=== PATIENT | male | born 1955 | race Caucasian/White ===

== ENCOUNTER → 2017-11-27 | Outpatient (CLI) | payer BC ==
--- NOTE | 2017-11-27 10:01 | CT ---
EXAMINATION TYPE: CT chest wo con DATE OF EXAM: 11/27/2017 COMPARISON: 02/21/2014 HISTORY: 62-year-old male abnormal findings diagnostic imaging TECHNIQUE: Contiguous axial scanning of the chest without IV contrast. Coronal and sagittal reconstru ctions performed. CT DLP: 692 mGycm Automated exposure control for dose reduction was used. FINDINGS: Heart normal size without pericardial effusion. Aortic valvular and coronary vessel calcifications ar e present. Aorta shows bovine configuration with scattered mild prostatic calcifications. Upper descending thora cic aorta is borderline ectatic at 3.0 cm. No thoracic lymphadenopathy. There is some strandy atelectasis at the right base and basilar right middle lobe. Some mild subpleur al reticulations within the mid lung suggests sequela of prior inflammation with some interstitial sc arring. The 4 mm peripheral right midlung pulmonary nodule axial image 31 is unchanged from 2014. Couple inocencia cent 4 mm pulmonary nodules peripheral left lower lobe axial image 27 and 30 are unchanged from 2014. No consolidation or pleural effusion. Visualized upper abdomen shows partial visualization of the previous splenule mentioned on prior CT a bdomen reports. 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 Minimal degenerative disc dise ase lower thoracic spine. No osseous destructive process. IMPRESSION: 1. SOME MINIMAL INTERSTITIAL SCARRING/FIBROSIS IN THE SUBPLEURAL REGIONS OF THE MID LUNGS IS NONSPECI FIC AND SUGGESTS SEQUELA OF PRIOR INFLAMMATION. NO ACUTE PULMONARY PROCESS. 2. A FEW 4 MM PULMONARY NODULES ARE UNCHANGED FROM 2014 COMPATIBLE WITH A BENIGN ETIOLOGY.
== END | disposition home or self-care (01) ==
LOC: RADCTMAIN 08:20
PROVIDERS: ATTEND Family Medicine
DX: R91.8 Other nonspecific abnormal finding of lung field (principal); Z91.041 Radiographic dye allergy status
CPT/HCPCS: 71250

== ENCOUNTER 2018-09-21 15:53 | Observation (INO) | payer BC ==
[2018-09-21 16:43] LABS: Basophils # (A) 0.1 k/uL (0-0.2); Basophils % (A) 1 %; Eosinophils # (A) 0.2 k/uL (0-0.7); Eosinophils % (A) 2 %; HCT 42.9 % (39.0-53.0); HGB 14.3 gm/dL (13.0-17.5); Lymphocytes # (A) 3.8 k/uL (1.0-4.8); Lymphocytes % (A) 29 %; MCH 31.4 pg (25.0-35.0); MCHC 33.4 g/dL (31.0-37.0); MCV 94.1 fL (80.0-100.0); Mean Platelet Volume 7.5; Monocytes % (A) 8 %; Neutrophils # (A) 7.5 k/uL (1.3-7.7); Neutrophils % (A) 58 %; Platelet Count 342 k/uL (150-450); RBC 4.56 m/uL (4.30-5.90); RDW 13.5 % (11.5-15.5)
[2018-09-21 16:50] LABS: Albumin 4.1 g/dL (3.5-5.0); Calcium 9.7 mg/dL (8.4-10.2); Magnesium 1.8 mg/dL (1.6-2.3); Potassium 4.1 mmol/L (3.5-5.1); Total Bilirubin 0.5 mg/dL (0.2-1.3); Total Protein 7.2 g/dL (6.3-8.2)
[2018-09-21 16:54] LABS: Creatine Kinase 27 U/L (55-170)
[2018-09-21 17:01] LABS: Partial Thromboplastin Time 23.3 sec (22.0-30.0); Prothrombin Time 10.6 sec (9.0-12.0)
--- NOTE | 2018-09-21 17:05 | XR ---
EXAMINATION TYPE: XR chest 2V DATE OF EXAM: 09/21/2018 COMPARISON: NONE HISTORY: Short of breath TECHNIQUE: Frontal and lateral views of the chest are obtained. FINDINGS: Heart and mediastinum are normal. Lungs are clear. Costophrenic angles are clear. There ar e no hilar masses. Bony thorax is intact. There are chest leads. IMPRESSION: Normal chest.
[2018-09-21 17:07] LABS: Creatine Kinase MB 0.7 ng/mL (0.0-2.4); Troponin I <0.012 ng/mL (0.000-0.034)
[2018-09-21 17:31] LABS: D-Dimer 0.66 mg/L FEU (<0.60)
--- NOTE | 2018-09-21 18:09 | CT ---
EXAMINATION TYPE: CT angio chest DATE OF EXAM: 09/21/2018 5:54 PM COMPARISON: 02/21/2014 HISTORY: Chest pain CT DLP: mGycm Automated exposure control for dose reduction was used. CONTRAST: CTA scan of the thorax is performed , patient injected with mL of , pulmonary embolism protocol. . The contrast was Isovue 100 mL. There are 3-D post processed images. FINDINGS: Heart size is normal. There is no pericardial effusion. There are no hilar masses. There is no medias tinal adenopathy. Thoracic aorta shows no aneurysm or dissection. There is normal contrast opacification of the pulmonary arteries. There are no filling defects. There is no pleural effusion. There is mild subpleural linear density at the lung bases. There is no evidence of a pulmonary mass. There are bilateral renal cortical cysts. There is pancreatic atrophy. The bony thorax is intact. There is no compression fracture. IMPRESSION: NO EVIDENCE OF PULMONARY EMBOLISM. MINIMAL FIBROTIC CHANGES AND SUBSEGMENTAL ATELECTASIS AT THE LUNG BASES. NO ADVERSE CHANGE COMPARED TO OLD EXAM.
--- NOTE | 2018-09-21 18:24 | ED ---
Chest Pain HPI - General Chief Complaint: Chest Pain Stated Complaint: Chest pain Time Seen by Provider: 09/21/18 16:09 Source: patient Mode of arrival: wheelchair Limitations: no limitations - History of Present Illness Initial Comments: 63-year-old male past medical history of hyperlipidemia, previous pulmonary embolism in 2007 on no current anticoagulation therapy presenting today for chief complaint of chest pain and shortness of breath. Patient states that he has had worsening shortness of breath over the course of this year, increasing more so this month. In addition patient states the past 2-3 weeks he had left- sided chest pain, he noticed this begins after exertion. Patient states his last episode was while in the waiting room at the emergency department. Lasting about 2-3 minutes. Patient states with a few minutes or rest during these episodes it seems to subside. Patient denies any dizziness, syncope presyncope, nausea, vomiting, epigastric pain, jaw pain. Patient states the pain in the chest does radiate towards the left shoulder. Patient states he has noticed some bilateral lower extremity edema, denies any unilateral swelling , cough, hemoptysis, history of cancer, recent travel. Patient states she has not been on any anticoagulation therapy since 3 years status post diagnosis of pulmonary embolism. Remainder of review of systems is negative, patient denies any recent fever, chills, back pain, abdominal pain, nausea or vomiting, numbness or tingling, dysuria or hematuria, constipation or diarrhea, headaches or visual changes, or any other complaints. On arrival patient's vital signs within acceptable limits. Patient well-appearing with no acute signs of distress. (-) Levign sign. - Related Data Home Medications Medication Instructions Recorded Confirmed Multivitamin/Iron/Folic Acid 1 tab PO DAILY 07/07/16 09/21/18 [Centrum Complete Multivit Tab] Naproxen Sodium [Aleve] 220 mg PO BID PRN 07/07/16 09/21/18 Acetaminophen/Diphenhydramine 3 tab PO HS 09/21/18 09/21/18 [Tylenol PM 500-25mg] Allergies Allergy/AdvReac Type Severity Reaction Status Date / Time etodolac [From [facility]] Allergy Rash/Hives Verified 09/21/18 16:28 Review of Systems ROS Statement: Those systems with pertinent positive or pertinent negative responses have been documented in the HPI. ROS Other: All systems not noted in ROS Statement are negative. EKG Findings - EKG Comments: EKG Findings:: A 12-lead EKG was performed and shows the following: Rate is 82bpm, and rhythm is normal sinus. There are normal QRS complexes, Q wave noted , and normal R-wave progression. ST segments have no elevation or depression, and AR segments appear normal. Some T wave inversion noted in lead III, II. Past Medical History Past Medical History: Pulmonary Embolus (PE) Additional Past Medical History / Comment(s): dysphagia History of Any Multi-Drug Resistant Organisms: None Reported Past Surgical History: Bowel Resection, Hernia Repair, Orthopedic Surgery Additional Past Surgical History / Comment(s): Back surgery, spleenectomy. Past Anesthesia/Blood Transfusion Reactions: No Reported Reaction Past Psychological History: No Psychological Hx Reported Smoking Status: Former smoker Past Alcohol Use History: None Reported Past Drug Use History: None Reported - Past Family History Mother Family Medical History: Cancer General Exam - General Exam Comments Initial Comments: General: The patient is awake and alert, in no distress, and does not appear acutely ill. Eye: Pupils are equal, round and reactive to light, extra-ocular movements are intact. No nystagmus. There is normal conjunctiva bilaterally. No signs of icterus. Ears, nose, mouth and throat: There are moist mucous membranes and no oral lesions. Neck: The neck is supple, there is no tenderness or JVD. Cardiovascular: There is a regular rate and rhythm. No murmur, rub or gallop is appreciated. Respiratory: Lungs are clear to auscultation, respirations are non-labored, breath sounds are equal. No wheezes, stridor, rales, or rhonchi. Gastrointestinal: Soft, non-distended, non-tender abdomen without masses or organomegaly noted. . Bowel sounds are unremarkable. Musculoskeletal: Normal ROM, no tenderness. Strength 5/5. Sensation intact. + 2 DP pulses equal bilaterally 2+. Negative Scott. No lower extremity edema. Neurological: A&O x 3. CN II-XII intact, There are no obvious motor or sensory deficits. Coordination appears grossly intact. Speech is normal. Skin: Skin is warm and dry and no rashes or lesions are noted. Psychiatric: Cooperative, appropriate mood & affect, normal judgment. Limitations: no limitations Course Vital Signs 09/21/18 09/21/18 09/21/18 15:54 16:30 17:00 Temperature 97.4 F L Pulse Rate 90 80 84 Respiratory 24 17 16 Rate Blood Pressure 129/78 131/84 131/76 O2 Sat by Pulse 95 98 97 Oximetry Chest Pain MDM - MDM 63-year-old male with complaints of intermittent chest pain that increases with exertion. As well as complaints of increasing shortness of breath. EKG does show some T-wave inversion, nonspp. Initial troponin negative. Patient denies any current symptoms however was symptomatically emergency department, waiting room. Patient current;y 97% on room air. D-dimer elevated, CTA negative for pulmonary embolism. Remainder of laboratory values within acceptable limits. Patient on telemetry. Patient given aspirin. At this time given age, risk factors, family history and patient's symptoms patient will be admitted for serial troponin as well as further monitoring and possible cardiology testing. Cardiology will be on consult. Dr. Conley was contacted by attending provider . Pt is agreeable with plan as well as admission. Pt transferred to observation unit in stable condition appearing well. Disposition Clinical Impression: Chest pain, SOB (shortness of breath) Disposition: ADMITTED IP TO THIS HOSP Condition: Stable Is patient prescribed a controlled substance at d/c from ED?: No Referrals: Vaishali Piña MD [Primary Care Provider] - 1-2 days Time of Disposition: 18:31 Decision to Admit Reason: Admit from EC Decision Date: 09/21/18 Decision Time: 18:31
[2018-09-21] MEDS ORDERED: ASPIRIN 325 MG TAB PO STA (18:27)
[2018-09-21] MEDS ORDERED: NALOXONE 0.4 MG/ML 1 ML VIAL IV PRN (18:41)
[2018-09-21] MEDS: SODIUM CHLORIDE 0.9% 1,000 ML IV SCH (18:54)
[2018-09-21] MEDS ORDERED: INFLUENZA VACCINE (6 MOS+) 60 MCG/0.5 ML SYRINGE IM ONE (23:27)
[2018-09-22 03:47] VITALS: RESP 18
[2018-09-22] MEDS: SODIUM CHLORIDE 0.9% 1,000 ML IV SCH (07:11)
[2018-09-22 08:25] LABS: Basophils # (A) 0.1 k/uL (0-0.2); Basophils % (A) 1 %; Eosinophils # (A) 0.2 k/uL (0-0.7); Eosinophils % (A) 2 %; HCT 41.8 % (39.0-53.0); HGB 13.6 gm/dL (13.0-17.5); Lymphocytes # (A) 3.1 k/uL (1.0-4.8); Lymphocytes % (A) 30 %; MCH 31.1 pg (25.0-35.0); MCHC 32.5 g/dL (31.0-37.0); MCV 95.8 fL (80.0-100.0); Monocytes # (A) 0.8 k/uL (0-1.0); Monocytes % (A) 8 %; Neutrophils # (A) 5.8 k/uL (1.3-7.7); Neutrophils % (A) 55 %; Platelet Count 334 k/uL (150-450); RBC 4.36 m/uL (4.30-5.90); RDW 13.5 % (11.5-15.5); WBC 10.5 k/uL (3.8-10.6)
[2018-09-22 08:29] LABS: ALT 25 U/L (21-72); AST 16 U/L (17-59); Albumin 3.6 g/dL (3.5-5.0); Alkaline Phosphatase 46 U/L (38-126); Anion Gap 7 mmol/L; Blood Urea Nitrogen 21 mg/dL (9-20); Calcium 9.3 mg/dL (8.4-10.2); Carbon Dioxide 25 mmol/L (22-30); Chloride 110 mmol/L (98-107); Glucose 101 mg/dL (74-99); Potassium 4.2 mmol/L (3.5-5.1); Sodium 142 mmol/L (137-145); Total Bilirubin 0.5 mg/dL (0.2-1.3); Total Protein 6.4 g/dL (6.3-8.2)
[2018-09-22] MEDS ORDERED: DOBUTamine DRIP for NUC MED 500 MG in DEXTROSE/WATER 1 250ML.BAG IV ONE (09:00)
[2018-09-22 09:46] LABS: Cholesterol 166 mg/dL (<200); HDL Cholesterol 39 mg/dL (40-60); LDL Cholesterol,Calculated 113 mg/dL (0-99); Triglycerides 70 mg/dL (<150)
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
--- NOTE | 2018-09-22 11:12 | ECHOF ---
Referral Reason:sob, cp MEASUREMENTS -------- HEIGHT: 172.7 cm WEIGHT: 113.4 kg BP: 136/77 RVIDd: 3.6 cm (< 3.3) IVSd: 1.6 cm (0.6 - 1.1) LVIDd: 5.0 cm (3.9 - 5.3) LVPWd: 1.5 cm (0.6 - 1.1) IVSs: 2.1 cm LVIDs: 3.2 cm LVPWs: 2.1 cm LA Diam: 4.5 cm (2.7 - 3.8) LAESV Index (A-L): 35.21 ml/m Ao Diam: 3.7 cm (2.0 - 3.7) AV Cusp: 2.0 cm (1.5 - 2.6) EPSS: 0.4 cm MV E Kutris: 0.82 m/s MV DecT: 265 ms MV A Kurtis: 0.95 m/s MV E/A Ratio: 0.86 AV maxP.78 mmHg AV meanP.92 mmHg AR PHT: 1859 ms RAP: 5.00 mmHg RVSP: 30.11 mmHg MV EF SLOPE: 59.18 mm/s (70 - 150) MV EXCURSION: 1.38 cm (> 18.000) FINDINGS -------- Sinus rhythm. This was a technically adequate study. The left ventricular size is normal. There is moderate concentric left ventricular hypertrophy. O verall left ventricular systolic function is normal with, an EF between 55 - 60 %. The right ventricle is mildly enlarged. LA is moderately dilated 34-39 ml/m2 The right atrium is normal in size. There is moderate aortic valve sclerosis. There is mild aortic regurgitation. There is mild aorti c stenosis present. Peak/mean gradient across the Aortic Valve is 27.78mmHg / 12.92mmHg. Mild mitral annular calcification present. There is trace mitral regurgitation. Mild tricuspid regurgitation present. Right ventricular systolic pressure is normal at < 35 mmHg. Trace/mild (physiologic) pulmonic regurgitation. The aortic root size is normal. Normal inferior vena cava with normal inspiratory collapse consistent with estimated right atrial pre ssure of 5 mmHg. There is no pericardial effusion. CONCLUSIONS -------- 1. Sinus rhythm. 2. This was a technically adequate study. 3. The left ventricular size is normal. 4. There is moderate concentric left ventricular hypertrophy. 5. Overall left ventricular systolic function is normal with, an EF between 55 - 60 %. 6. The right ventricle is mildly enlarged. 7. LA is moderately dilated 34-39 ml/m2 8. The right atrium is normal in size. 9. There is moderate aortic valve sclerosis. 10. There is mild aortic regurgitation. 11. There is mild aortic stenosis present. 12. Peak/mean gradient across the Aortic Valve is 27.78mmHg / 12.92mmHg. 13. Mild mitral annular calcification present. 14. There is trace mitral regurgitation. 15. Mild tricuspid regurgitation present. 16. Right ventricular systolic pressure is normal at < 35 mmHg. 17. Trace/mild (physiologic) pulmonic regurgitation. 18. The aortic root size is normal. 19. Normal inferior vena cava with normal inspiratory collapse consistent with estimated right atrial pressure of 5 mmHg. 20. There is no pericardial effusion. CHASSIS INSPECTOR: NARDA Goldstein
[2018-09-22 15:47] VITALS: BP 120/74; PULSE 71; TEMP 97.6
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
[2018-09-22] MEDS ORDERED: ATORVASTATIN 40 MG TAB PO SCH (21:00)
--- NOTE | 2018-09-23 11:13 | P.DS ---
Providers Date of admission: 09/21/18 18:33 Expected date of discharge: 09/22/18 Attending physician: Gino Conley Consults: 09/21/18 18:41 Consult Physician Routine Consulting Provider: Ru Lazo Consult Reason/Comments: chest pain with SOB, t wave inversion Do you want consulting provider notified?: Yes, Notify in am 09/22/18 12:16 Consult Physician Routine Consulting Provider: Raoul Ravi Consult Reason/Comments: Increased shortness of breath with minimal fibrotic changes on CTA Do you want consulting provider notified?: Yes Primary care physician: Vaishali [facility] B[facility] Hospital Course: Discharge diagnosis 1. Chest pain or shortness of breath. Troponins negative 3. CT of chest completed showing no evidence of pulmonary embolism. Minimal fibrotic changes and subsegmental atelectasis at the lung bases. No adverse change compared to old exam. EKG completed showing normal sinus rhythm. Normal EKG. 2-D echo completed showing an EF between 55 and 60%. Dobutamine stress test completed per cardiology. Patient has been cleared by cardiology for discharge. Per pulmonary services and chest x-ray reviewed no need for antibiotics prednisone her breathing treatments at this time. Patient advised to follow-up with pulmonary services outpatient for evaluation of chronic lung disease 2. History of pulmonary embolism. He reports he has not been on anticoagulation for many years. CTA negative for PE 3. Hyperlipidemia. Continue statin 4. History of sleep apnea. Patient reports he does wear CPAP machine 5. History of osteoarthritis 6. History of cholecystectomy Hospital course This is a 63-year-old male patient of Dr. Piña. Patient presented to the emergency room with complaints of chest pain and intermittent shortness of breath that has been occurring for over a year. Patient reports that recently his shortness of breath has worsened. Patient reports he gets short of breath while walking to bathroom. Patient has past medical history for osteoarthritis , pulmonary embolism in which he is no longer on anticoagulation, sleep apnea, bowel resection, cholecystectomy and hernia repair. Patient does report he was an ex-smoker quitting approximately 5 years ago. Denies any significant cardiac history. Chest x-ray completed showing normal chest. D-dimer slightly elevated at 0.66. CTA chest done showing no evidence of pulmonary embolism. Minimal fibrotic changes and subsegmental atelectasis at the lung bases. No adverse change compared to old exam. 2-D echo and venous stress test has been ordered per cardiology. At this time patient denies chest pain. Patient does report shortness of breath with activity. Patient denies nausea vomiting or diarrhea. Patient denies any urinary burning or frequency. Patient has been cleared for discharge from pulmonary and cardiology services. Stress test and 2-D echo completed per cardiology. Patient will follow up with pulmonary service outpatient for further evaluation. I performed an examination of the patient and discussed their management with the Nurse Practitioner. I have reviewed the Nurse Practitioner's notes and agree with the documented findings and plan of care Patient Condition at Discharge: Stable Plan - Discharge Summary Discharge Rx Participant: Yes New Discharge Prescriptions: New Atorvastatin [Lipitor] 40 mg PO HS #90 tab No Action Naproxen Sodium [Aleve] 220 mg PO BID PRN PRN Reason: Pain Multivitamin/Iron/Folic Acid [Centrum Complete Multivit Tab] 1 tab PO DAILY Acetaminophen/Diphenhydramine [Tylenol PM 500-25mg] 3 tab PO HS Discharge Medication List Multivitamin/Iron/Folic Acid [Centrum Complete Multivit Tab] 1 tab PO DAILY [History] Naproxen Sodium [Aleve] 220 mg PO BID PRN 07/07/16 [History] Acetaminophen/Diphenhydramine [Tylenol PM 500-25mg] 3 tab PO HS 09/21/18 [ History] Atorvastatin [Lipitor] 40 mg PO HS #90 tab 09/22/18 [Rx] Follow up Appointment(s)/Referral(s): Mj Adkins MD [STAFF PHYSICIAN] - 10/29/18 10:45 am (Holter monitor to be picked up in the office 10/08 between 8:30-12pm or 1:30-4pm Appointment with Dr. Adkins 10/29 at 1045. ) Raoul Ravi DO [Doctor of Osteopathic Medicine] - 09/29/18 1:00 pm Vaishali Piña MD [Primary Care Provider] - 1-2 days Discharge Disposition: HOME SELF-CARE
--- NOTE | 2018-09-24 11:00 | ECHOS ---
STRESS ECHOCARDIOGRAM INDICATIONS: Chest pain. MEDICATIONS: Naproxen sodium, multivitamin, acetaminphen. BASELINE HEART RATE: 64 BASELINE BLOOD PRESSURE: 123/74 MAXIMUM HEART RATE: 142 MAXIMUM BLOOD PRESSURE: 148/53 85% MPHR: 133 100% MPHR: 156 MAXIMUM STAGE REACHED: 5 TOTAL EXERCISE TIME: 12:15 CLINICAL INFORMATION: Baseline heart rate 64 beats per minute. Baseline blood pressure 123/74 mmHg. Baseline 12-lead ECG shows normal sinus rhythm with normal cardiac intervals. Patient received dobutamine infusion per protocol. Occasional PVCs initially noted that later became frequent, these were outflow tract PVCs, recurred intermittently through the test and became frequent towards the end of the test, but no nonsustained ventricular tachycardia. There was no ECG segment deviation consistent with ischemia. The baseline 2D echo images showed normal LV size systolic function without segmental wall motion abnormalities. This dobutamine infusion there was a stepwise increment in overall LV contractility without development of any wall motion abnormalities. At recovery, regional global LV systolic function remained normal. IMPRESSION: No ECG or echocardiographic evidence for ischemia: The patient had frequent PVCs during dobutamine infusion, but no nonsustained ventricular tachycardia. MMODL / IJN: [id number] /
== END 2018-09-22 17:35 | disposition home or self-care (01) ==
LOC: EC 15:53 → 1SOBS 18:33
PROVIDERS: ADMIT Internal Medicine; ATTEND Internal Medicine
DX: R07.89 Other chest pain (principal); E78.5 Hyperlipidemia, unspecified; G47.30 Sleep apnea, unspecified; K21.9 Gastro-esophageal reflux disease without esophagitis; I35.8 Other nonrheumatic aortic valve disorders; Z87.891 Personal history of nicotine dependence; Z86.711 Personal history of pulmonary embolism; Z90.49 Acquired absence of other specified parts of digestive tract; Z82.5 Family history of asthma and other chronic lower respiratory diseases; Z88.8 Allergy status to other drugs, medicaments and biological substances
CPT/HCPCS: 99285; 36415; 93005; 93306; 93351; 85379; 83880; 80061; 80053 ×2; 82550; 82553; 83735; 84484 ×2; 85025 ×2; 85610; 85730; 71046; 71275; 90686; G0378 ×2; G0008; J1250; Q9967

== ENCOUNTER → 2018-10-08 | Outpatient (CLI) | payer BC ==
--- NOTE | 2018-10-08 10:08 | CT ---
EXAMINATION TYPE: CT chest wo con DATE OF EXAM: 10/08/2018 COMPARISON: CTA 09/21/2018 HISTORY: Unspecified abnormalities of breathing CT DLP: 238 mGycm, Automated exposure control for dose reduction was used. CONTRAST: None TECHNIQUE: Axial images were obtained at 1 mm thick sections at 10 mm intervals. This will limit po rtions of the examination which may not be visualized within the [id number]. Images were obtained in the prone and supine views. FINDINGS: Portion of the thyroid visualized is normal. No suspicious lung nodules or focal infiltrat es are present. There is some reversible atelectasis and supine views. No enlarged mediastinal or hilar adenopathy is evident. The ascending aorta diameter at the level o f the main pulmonary artery is 3.8 cm. The main pulmonary artery diameter at the bifurcation is 3.0 cm. Moderate coronary artery calcifications present. Limited CT sections are obtained through the upper abdomen. Abdomen is essentially unremarkable. IMPRESSIONS: 1. Normal High Resolution Chest CT.
== END | disposition home or self-care (01) ==
LOC: RADCTMAIN 08:02
PROVIDERS: ATTEND Internal Medicine Critical Care Medicine
DX: R06.09 Other forms of dyspnea (principal)
CPT/HCPCS: 71250

== ENCOUNTER → 2018-12-01 | Outpatient (CLI) | payer BC ==
--- NOTE | 2018-12-01 08:24 | CT ---
EXAMINATION TYPE: CT sinus wo con DATE OF EXAM: 12/01/2018 COMPARISON: NONE HISTORY: Chronic sinusitis per order. Facial pain for [address] DLP: 610 mGycm. Automated Exposure Control for Dose Reduction was Utilized. TECHNIQUE: CT scan of the sinuses is performed without contrast, axial images are obtained, coronal r eformatted images are also reviewed. FINDINGS: The paranasal sinuses including the frontal, ethmoid, sphenoid, and maxillary sinuses bila terally are well-aerated without abnormal opacification or suspicious air-fluid levels. The ostiomea neville complex is patent bilaterally on the coronal images. Visualized portion of mastoid air cells show no abnormal opacification. The globes are intact bilate rally. IMPRESSION: The sinuses are clear and the ostiomeatal complex is patent bilaterally.
== END | disposition home or self-care (01) ==
LOC: RADCTMAIN 07:24
PROVIDERS: ATTEND Otolaryngology
DX: J32.9 Chronic sinusitis, unspecified (principal)
CPT/HCPCS: 70486

== ENCOUNTER → 2018-12-15 | Outpatient (CLI) | payer BC | LOC: LABWHC1 17:22 | PROVIDERS: ATTEND Internal Medicine Critical Care Medicine | DX: J45.909 Unspecified asthma, uncomplicated (principal) | CPT/HCPCS: 36415; 82785; 85008 ==

== ENCOUNTER → 2019-04-26 | Outpatient (CLI) | payer BC ==
--- NOTE | 2019-04-27 16:13 | CT ---
EXAMINATION TYPE: CT foot RT wo con DATE OF EXAM: 04/26/2019 COMPARISON: None HISTORY: Dislocation of tarsometatarsal joint RT foot CT DLP: 339 mGycm CONTRAST: 0 mL of Isovue 300 Technique: Axial images 3 mm thick sections. Reconstructed images in the coronal and sagittal planes. FINDINGS: There are advanced degenerative joint changes at the tarsal metatarsal junction especially through the cuneiforms and metatarsals. Subchondral cyst formation is evident. Metatarsal tarsal Alig nment appears appropriate. There may be some deformity of the cuneiforms with angulation of the middl e cuneiform. Plain film correlation is recommended. Note is made of a plantar calcaneal heel spur. Small bone island is in the medial malleolus. Ankle mo rtise appears intact. Tibiotalar junction appears intact. No displaced fractures are identified. Thre e-D reconstructed images are reviewed on the computer and were performed separately by the technologi st. IMPRESSIONS: 1. No acute dislocations identified. 2. There may be some congenital change of the middle cuneiform versus erosion. Recommend plain film c orrelation of the tarsal metatarsal function. 3. There are advanced degenerative joint changes at the tarsometatarsal junction greater along the me dial aspect.
== END | disposition home or self-care (01) ==
LOC: RADCTMAIN 16:47
DX: M19.071 Primary osteoarthritis, right ankle and foot (principal)

== ENCOUNTER 2019-10-29 11:48 | Emergency (ER) | payer BC ==
[2019-10-29] MEDS ORDERED: SODIUM CHLORIDE 0.9% 1,000 ML IV STA (12:17)
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
[2019-10-29 12:38] LABS: Basophils # (A) 0.1 k/uL (0-0.2); Basophils % (A) 1 %; Eosinophils # (A) 0.2 k/uL (0-0.7); Eosinophils % (A) 2 %; HCT 40.4 % (39.0-53.0); HGB 13.3 gm/dL (13.0-17.5); Lymphocytes # (A) 3.3 k/uL (1.0-4.8); Lymphocytes % (A) 28 %; MCH 30.8 pg (25.0-35.0); MCHC 33.1 g/dL (31.0-37.0); MCV 93.3 fL (80.0-100.0); Mean Platelet Volume 8.2; Monocytes % (A) 9 %; Neutrophils # (A) 6.8 k/uL (1.3-7.7); Neutrophils % (A) 58 %; Platelet Count 302 k/uL (150-450); RBC 4.33 m/uL (4.30-5.90); RDW 13.3 % (11.5-15.5); WBC 11.8 k/uL (3.8-10.6)
[2019-10-29 12:48] LABS: Partial Thromboplastin Time 24.9 sec (22.0-30.0); Prothrombin Time 10.7 sec (9.0-12.0)
[2019-10-29 12:49] LABS: ALT 23 U/L (4-49); AST 27 U/L (17-59); African American GFR (CKD) >90 (>60 ml/min/1.73 sqM); Albumin 4.4 g/dL (3.5-5.0); Alkaline Phosphatase 59 U/L (38-126); Anion Gap 8 mmol/L; Blood Urea Nitrogen 17 mg/dL (9-20); Calcium 9.7 mg/dL (8.4-10.2); Carbon Dioxide 24 mmol/L (22-30); Chloride 108 mmol/L (98-107); Creatine Kinase 111 U/L (55-170); Glucose 109 mg/dL (74-99); Non-African American GFR(CKD) >90 (>60 ml/min/1.73 sqM); Potassium 3.8 mmol/L (3.5-5.1); Sodium 140 mmol/L (137-145); Total Bilirubin 0.5 mg/dL (0.2-1.3); Total Protein 7.5 g/dL (6.3-8.2)
--- NOTE | 2019-10-29 13:35 | CT ---
EXAMINATION TYPE: CT angio chest DATE OF EXAM: 10/29/2019 COMPARISON: Chest CT October 08, 2018 and CTA chest September 21, 2018 HISTORY: SOB, chest pain CT DLP: 734.2 mGycm. Automated Exposure Control for Dose Reduction was Utilized. CONTRAST: CTA scan of the thorax is performed with IV Contrast, patient injected with 89 mL of Isovue 370, pulm onary embolism protocol. MIP Images are created on CT scanner and reviewed. FINDINGS: LUNGS: Elevation and eventration anterior aspect right hemidiaphragm is redemonstrated. Dependent dayanara undglass opacity along the left major fissure and bilateral lower lungs is present with some more hillary tral groundglass opacity left lung. Patchy bibasilar linear atelectasis and/or scarring. Some respira tory motion artifact degradation. No pleural effusion or pneumothorax seen bilaterally MEDIASTINUM: There is suboptimal bolus with heterogeneity and less than optimal contrast opacificatio n but no convincing CT evidence for acute pulmonary embolism. There are no greater than 1 cm hilar o r mediastinal lymph nodes. No cardiomegaly or pericardial effusion is seen. Coronary artery calcifi cation is redemonstrated which is noted marker for underlying coronary artery disease. Prominent cent ral pulmonary arteries, CT findings suggesting underlying pulmonary artery hypertension. OTHER: Small nonobstructing bilateral renal calculi. Simple appearing 2.0 cm thin-walled cyst mid to lower pole of the right kidney. Fat replaced atrophy of the pancreas. [id number] multilevel spu rring in the thoracic spine. IMPRESSION: Suboptimal study without acute pulmonary embolism. Mild diffuse alveolar edema. No suspic ious focal infiltrate or consolidation.
[2019-10-29] MEDS ORDERED: CYCLOBENZAPRINE 10MG STARTER 3 TAB BTL PO STA (14:32)
[2019-10-29 14:38] VITALS: BP 148/82; PULSE 59; RESP 60; TEMP 98.6
== END 2019-10-29 14:48 | disposition home or self-care (01) ==
LOC: EC 11:48
DX: M54.6 Pain in thoracic spine (principal); R06.02 Shortness of breath; R05 Cough; M19.90 Unspecified osteoarthritis, unspecified site; Z79.899 Other long term (current) drug therapy; Z88.6 Allergy status to analgesic agent; Z86.711 Personal history of pulmonary embolism; Z87.891 Personal history of nicotine dependence; Z90.49 Acquired absence of other specified parts of digestive tract; Z98.1 Arthrodesis status
CPT/HCPCS: 36415; 93005; 80053; 82550; 84484; 85025; 85610; 85730; 71275; 99285; Q9967

== ENCOUNTER → 2021-12-11 | Outpatient (CLI) | payer BC ==
--- NOTE | 2021-12-11 14:21 | CT ---
EXAMINATION TYPE: CT abdomen pelvis wo con DATE OF EXAM: 12/11/2021 COMPARISON: CT dated 01/12/2015 HISTORY: INCISIONAL HERNIA WITHOUT OBSTRUCTION OR HEATHER CT DLP: 1095 mGycm Automated exposure control for dose reduction was used. TECHNIQUE: Helical acquisition of images was performed from the lung bases through the pelvis. FINDINGS: LUNG BASES: No significant abnormality is appreciated. LIVER/GB: The hepatic dome isn't completely included in the scan. Previous cholecystectomy. No defini te hepatic focal lesion identified. PANCREAS: Severe fatty infiltration of the pancreas mainly the pancreatic head. SPLEEN: Very small spleen versus splenules. ADRENALS: No significant abnormality is seen. KIDNEYS: Tiny bilateral nonobstructing renal calculi measuring up to 4 mm. Scattered bilateral renal hypodensities likely representing renal cysts, suboptimally assessed by this CT scan. No hydroureter or hydronephrosis. FREE AIR: No free air is visualized RETROPERITONEAL ADENOPATHY: None visualized REPRODUCTIVE ORGANS: No significant abnormality is seen URINARY BLADDER: Nondistended. PELVIC ADENOPATHY: No pathologically enlarged pelvic lymph nodes. OSSEOUS STRUCTURES: Stable deformity/irregularity at the posterior aspect of the right iliac bone. C hronic nonhealed fracture of the posterior aspect of the left ninth rib, stable. Degenerative changes of the lower lumbar spine. BOWEL: Unremarkable nondistended stomach, duodenum and small bowel. Uncomplicated colonic diverticul osis most evident involving the sigmoid colon and descending colon. Fatty infiltration of the right h emicolon colonic wall which could be related to chronic colitis. Normal appendix. OTHER: Scattered arterial atherosclerotic calcifications. No sizable ascites. Left inguinal density l ikely related to previous inguinal hernia repair. Multiple anterior abdominal wall paramidline fat-co ntaining hernias. IMPRESSION: Multiple anterior abdominal wall paramidline fat-containing hernias. Bilateral nonobstructing renal c alculi. Otherwise no acute abnormality seen in the abdomen or the pelvis. Incidental findings as desc ribed above.
== END | disposition home or self-care (01) ==
LOC: RADCTMAIN 13:40
PROVIDERS: ATTEND Surgery Plastic and Reconstructive Surgery
DX: N20.0 Calculus of kidney (principal); K43.9 Ventral hernia without obstruction or gangrene
CPT/HCPCS: 74176

== ENCOUNTER 2022-01-14 06:49 | Day surgery (SDC) | payer BC ==
[2022-01-13 13:40] VITALS: BMI 34.9
[2022-01-14] MEDS ORDERED: SODIUM CHLORIDE 0.9% 500 ML 500 ML IV ONE (07:07)
[2022-01-14 07:10] VITALS: TEMP 98.2
[2022-01-14] MEDS ORDERED: fentaNYL (PF) 50 MCG/ML 2 ML AMP ONE ×2 (07:46)
[2022-01-14] MEDS: BENZOCAINE SPRAY 1 CAN MUCOUS MEM ONE ×2 (07:56→08:07)
[2022-01-14] MEDS ORDERED: MIDAZOLAM 2 MG/2 ML VIAL IV ONE (08:07)
[2022-01-14] MEDS ORDERED: fentaNYL (PF) 50 MCG/ML 2 ML AMP IV ONE (08:07)
[2022-01-14 08:16] VITALS: RESP 45
--- NOTE | 2022-01-14 09:42 | ECHOT ---
TRANSESOPHAGEAL ECHOCARDIOGRAM INDICATION: Aortic stenosis. PROCEDURE NOTE: After obtaining informed consent, transesophageal echocardiogram was performed in left lateral position using an Omniplane probe. Local and IV sedation were obtained using Xylocaine spray, 1 mg of Versed and 25 mcg of fentanyl. Patient tolerated the procedure well without any obvious immediate complications. FINDINGS: 1. Aortic valve is a bicuspid valve. There is mild to moderate aortic regurgitation noted by planimetry. The valve area is 2.1 cm suggestive of mild aortic stenosis. 2. Aortic root measures within normal limits. 3. Left atrium appears mildly enlarged. 4. Mitral valve is anatomically normal. There is mild mitral regurgitation noted. 5. Tricuspid valve appears normal with trace tricuspid regurgitation. 6. Interatrial septum: There is no evidence of pmmwv-ut-szyh shunt by agitated saline contrast study or ejmp-mo-slpih shunt by color-flow Doppler. 7. Left ventricle has normal size and systolic function. 8. Right atrium and right ventricle seen within normal limits. CONCLUSIONS: Bicuspid aortic valve with mild aortic stenosis and mild to moderate aortic regurgitation. PLAN: The patient will be followed with annual 2D echos; does not require specific treatment for the aortic stenosis at this time. MMODL / IJN: [id number] /
[2022-01-14 19:57] VITALS: BP 130/68; PULSE 55
== END 2022-01-14 09:46 | disposition home or self-care (01) ==
LOC: CATHCVL 06:49
PROVIDERS: ATTEND Internal Medicine Cardiovascular Disease
DX: I35.0 Nonrheumatic aortic (valve) stenosis (principal)
CPT/HCPCS: 93312; 93320; 93325; J2250; J3010

== ENCOUNTER → 2022-01-24 | Outpatient (CLI) | payer BC ==
[2022-01-24 18:29] LABS: Basophils # (A) 0.12 X 10*3/uL (0.00-0.10); Basophils % (A) 1.1 %; Eosinophils # (A) 0.12 X 10*3/uL (0.04-0.35); Eosinophils % (A) 1.1 %; HGB 13.2 g/dL (13.0-17.0); Immature Grans, Automated 0.5 %; Lymphocytes # (A) 2.23 X 10*3/uL (0.90-5.00); Lymphocytes % (A) 20.9 %; MCH 30.8 pg (27.0-32.0); MCV 93.2 fL (80.0-97.0); Mean Platelet Volume 11.7 fL (9.5-12.2); Monocytes # (A) 0.93 X 10*3/uL (0.20-1.00); Monocytes % (A) 8.7 %; NRBC Per 100 WBC 0 /100 WBCS (0.0-0.0); Neutrophils % (A) 67.7 %; Platelet Count 282 X 10*3/uL (140-440); RBC 4.29 X 10*6/uL (4.40-5.60); RDW 14.1 % (11.5-14.5); WBC 10.65 X 10*3/uL (4.50-10.00)
== END | disposition home or self-care (01) ==
LOC: LABPAT 12:34
PROVIDERS: ATTEND Anesthesiology
DX: Z01.812 Encounter for preprocedural laboratory examination (principal)
CPT/HCPCS: 85025

== ENCOUNTER 2022-01-27 10:21 | Day surgery (SDC) | payer BC ==
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
[~2022-01-27 10:21] MED LIST: ACETAMINOPHEN TAB 500 MG TAB PO PRN; DEXAMETHASONE SOD PHOSPHATE 4 MG/ML 1 ML VIAL IV ONE; GABAPENTIN 300 MG CAP PO PRN; HEPARIN SODIUM,PORCINE/PF 5,000 UNIT/0.5 ML SYRINGE SQ PRN; HYDROmorphone 0.5 MG/0.5 ML SYRINGE IVP PRN; LACTATED RINGERS 1,000 ML IV SCH; LIDOCAINE 1% (10MG/ML) FOR IV START INTRADERMA PRN; METOCLOPRAMIDE 5 MG/ML 2 ML VIAL IVP PRN; ONDANSETRON 4 MG/2 ML VIAL IVP ONE; TAMSULOSIN 0.4 MG CAP.ER.24H PO PRN
[2022-01-27 10:42] VITALS: TEMP 97.8
[2022-01-27 10:54] LABS: Glucose,Whole Blood 95 mg/dL (75-99)
[2022-01-27] MEDS ORDERED: LACTATED RINGERS 1,000 ML IV ONE ×2 (10:57→14:39)
[2022-01-27 11:05] LABS: Basophils # (A) 0.1 k/uL (0-0.2); Basophils % (A) 1 %; Eosinophils # (A) 0.2 k/uL (0-0.7); Eosinophils % (A) 2 %; HCT 41.3 % (39.0-53.0); Lymphocytes % (A) 21 %; MCH 32.4 pg (25.0-35.0); MCHC 33.9 g/dL (31.0-37.0); MCV 95.4 fL (80.0-100.0); Mean Platelet Volume 8.7; Monocytes # (A) 0.5 k/uL (0-1.0); Monocytes % (A) 5 %; Neutrophils # (A) 6.4 k/uL (1.3-7.7); Neutrophils % (A) 68 %; Platelet Count 302 k/uL (150-450); RBC 4.33 m/uL (4.30-5.90); RDW 13.5 % (11.5-15.5); WBC 9.3 k/uL (3.8-10.6)
[2022-01-27] MEDS: MIDAZOLAM 2 MG/2 ML VIAL IV PRN ×2 (11:32→11:35)
[2022-01-27] MEDS ORDERED: fentaNYL (PF) 50 MCG/ML 2 ML AMP IVP ONE ×2 (11:33→11:36)
--- NOTE | 2022-01-27 11:45 | P.ANPRN ---
Procedure Note - Anesthesia - Nerve Block Performed Bilateral Erector Spinae Time Out Performed: Yes (11:30) Date of Procedure: 01/27/22 Procedure Start Time: : Procedure Stop Time: : Location of Patient: PreOp Indication: Acute Post-Operative Pain, Requested by Surgeon (Dr Esquivel) Sedation Type: Sedate with meaningful contact maintained Preparation: Sterile Prep Position: Prone Catheter: None Needle Types: Pajunk Needle Gauge: 21 Ultrasound used to visualize needle placement: Yes Ultrasound used to observe medication spread: Yes Injectate: 0.5% Ropivacaine (see comment for volume) (15cc +10cc PF Normal saline each side) Blood Aspirated: No Pain Paresthesia on Injection Noted: No Resistance on Injection: Normal Image Stored and Saved: Yes Events: Uneventful and Well Tolerated
[2022-01-27 11:49] LABS: ALT 20 U/L (4-49); AST 20 U/L (17-59); African American GFR (CKD) >90 (>60 ml/min/1.73 sqM); Albumin 3.7 g/dL (3.5-5.0); Alkaline Phosphatase 53 U/L (38-126); Anion Gap 7 mmol/L; Blood Urea Nitrogen 15 mg/dL (9-20); Calcium 8.9 mg/dL (8.4-10.2); Carbon Dioxide 23 mmol/L (22-30); Chloride 111 mmol/L (98-107); Glucose 97 mg/dL (74-99); Non-African American GFR(CKD) >90 (>60 ml/min/1.73 sqM); Potassium 4.3 mmol/L (3.5-5.1); Sodium 141 mmol/L (137-145); Total Bilirubin 0.6 mg/dL (0.2-1.3); Total Protein 6.5 g/dL (6.3-8.2)
[2022-01-27] MEDS ORDERED: SODIUM CHLORIDE 0.9% (PF) 10 ML VIAL ONE (13:15)
[2022-01-27] MEDS ORDERED: LIDOCAINE 2% INJ 20 MG/ML (2 ML VIAL) ONE (13:15)
[2022-01-27] MEDS ORDERED: HYDROmorphone (PF) 1 MG/ML ONE (13:15)
[2022-01-27] MEDS ORDERED: NEOSTIGMINE 1 MG/ML 10 ML VIAL ONE (13:15)
[2022-01-27] MEDS ORDERED: MIDAZOLAM 2 MG/2 ML VIAL ONE (13:15)
[2022-01-27] MEDS ORDERED: PROPOFOL 10 MG/ML 20 ML VIAL IV ONE (13:15)
[2022-01-27] MEDS ORDERED: fentaNYL (PF) 50 MCG/ML 2 ML AMP ONE (13:15)
[2022-01-27] MEDS ORDERED: ROCURONIUM 10 MG/ML (5 ML VIAL) IV ONE (13:15)
[2022-01-27] MEDS ORDERED: ROPIVACAINE 5 MG/ML 30 ML VIAL ONE (13:15)
[2022-01-27] MEDS ORDERED: SUCCINYLCHOLINE CHLORIDE 100 MG/5 ML SYR IV ONE (13:15)
[2022-01-27] MEDS ORDERED: GLYCOPYRROLATE 0.2 MG/ML 2 ML VIAL ONE (13:15)
[2022-01-27] MEDS ORDERED: LIDOCAINE 0.5%-EPI 1:200,000 50 ML VIAL SQ ONE (13:47)
[2022-01-27] MEDS ORDERED: oxyCODONE-APAP 7.5-325MG 1 EACH TAB PO PRN (16:28)
[2022-01-27] MEDS ORDERED: TAMSULOSIN 0.4 MG CAP.ER.24H PO PRN (16:28)
[2022-01-27] MEDS ORDERED: HYDROmorphone 0.5 MG/0.5 ML SYRINGE IVP ONE ×4 (16:33→16:45)
[2022-01-27] MEDS ORDERED: KETOROLAC 15 MG/ML 1 ML VIAL IVP ONE (17:09)
[2022-01-27 17:40] VITALS: BP 145/77; PULSE 68; RESP 18
--- NOTE | 2022-01-28 22:37 | P.OP ---
Date of Procedure: 01/27/22 Description of Procedure: SURGEON: KAMILAH GOODSON MD PREOPERATIVE DIAGNOSES: 1. Recurrent incarcerated incisional hernia 2. History of splenectomy 3. Obesity due to excess calories, BMI 34.0 4. History of asthma 5. Hypertensive heart disease 6. Obstructive sleep apnea 7. History of pulmonary embolus 8. History of angina 9. History of trauma laparotomy status post splenectomy POSTOPERATIVE DIAGNOSES: 1. Recurrent incarcerated incisional hernia 7 2. History of splenectomy 3. Obesity due to excess calories, BMI 34.0 4. History of asthma 5. Hypertensive heart disease 6. Obstructive sleep apnea 7. History of pulmonary embolus 8. History of angina 9. History of trauma laparotomy status post splenectomy 10. Severe abdominal peritoneal adhesions 11. Foreign body OPERATION: 1. Robotic-assisted da Ozzie Xi laparoscopic laparoscopic lysis of adhesions over 1 hour 2. Robotic-assisted da Ozzie Xi laparoscopic repair of multiple recurrent incarcerated incisional with mesh, ventralight ST circular mesh 15.2 cm 3. Removal of foreign body, mesh Anesthesia: GETA, regional, local Estimated Blood Loss (ml): 5 Pathology: 1. Incarcerated incisional hernia defect 2. Foreign body COMPLICATIONS: None. Operative Findings: 1. Multiple incarcerated incisional hernias along the midline lower abdomen and epigastrium 7, 15 x 3 cm defect, combined 2. Prior mesh explanted due to recurrent 3. Severe epigastric left upper quadrant adhesions from prior splenectomy 4. Mesh placed as underlay INDICATIONS: The patient is a 66-year-old male who presents with a personal history of multiple abdominal wall hernias. Surgical intervention with laparoscopic versus robotic and open techniques were reviewed. Placement of mesh was also reviewed. Benefits and risks were thoroughly described. Informed consent was obtained. DESCRIPTION OF PROCEDURE: The patient was brought into the operating room and laid in supine position. After general induction, the abdomen had been prepped and draped in standard sterile fashion. Ioban draping was also placed. Prior to incision, a timeout protocol was confirmed with surgical team regarding the patient's name including procedures to be performed. The robot was primed prior to the procedure. A field block using local anesthetic was placed along hernia site including the proposed port sites. Initial incision was made with an #11 blade along the right upper quadrant. A 0 degree 5 mm laparoscopic trocar entry was performed and insufflated. Three 8 mm ports were placed along the right lateral abdominal wall under direct localization after exchanging the 5-mm for an 8 mm port. Placements of the ports were 15 cm from the target anatomy and 10 cm apart. An accessory 12 mm port was placed at the right upper quadrant for exchange of mesh including sutures. The PROTEIN LOUNGEi Xi robot was previously primed, prepped and draped then docked from the left side of the patient onto the right side of the patient. I then sat at the robot [employer] console where working arms of the robot including Bovie cautery connected to robotic scissors, needle hazmat cdl driver, and graspers placed by the carpenter assistant. Initia attention was brought to severe adhesions of the epigastrium to the left upper quadrant and addressed using vessel sealer for over one hour extensive lysis of adhesions. Prior mesh was identified and extracted to reveal all prior hernias due to recurrence. Incarcerated omental contents were found along multiple fascial defects involving the falciform ligament, epigastrium, upper midline and lower abdomen defect. The defects were reduced with preperitoneal fat including the falciform ligament at the upper midline defect. Multiple fascial defects of 3 and 2 cm in size 7 were identified. Combined defect was 15 cm x 3 cm. The incarcerated contents were reduced as the peritoneal fat was cleaned from the abdominal wall. Next, hemostasis was checked with cautery. The hernia defects were oversewn using #1 nonabsorbable V-lock suture for each defect separately with fascial imbrication x 2. Next, ventralight ST mesh 15.2 cm was divided in half and both pieces were placed with the rough side towards the abdominal wall as to cover all defects including the epigastric and midline defects. 2-0 VLOC 9 inch sutures were used to fixate the mesh. A final endoscopic imaging was obtained. All instruments and pneumoperitoneum were evacuated from the abdominal cavity. The da Ozzie Xi robot was undocked from the patient. I re-scrubbed into the case for closure of incisions. The fascia of the 12-mm port was probed and closed using 0-Vicryl and Alfa Hawk. The incisions were reapproximated using 4-0 Monocryl in an interrupted subcuticular fashion. Liquid glue was applied to the skin after cleansing the skin with normal saline and dilute hydrogen peroxide. An abdominal binder was placed. At the end of the procedure, needle, sponge, and instrument count had been verified correct by tap and die maker technician. The patient was taken to the postanesthesia care unit in stable condition. Intraoperative findings were described to the patient's family who were pleased with the level of care. Plan - Discharge Summary Discharge Rx Participant: Yes New Discharge Prescriptions: New Tamsulosin [Flomax] 0.4 mg PO DAILY #5 cap Acetaminophen Tab [Tylenol Tab] 1,000 mg PO Q6HR PRN #30 tablet PRN Reason: Pain Simethicone [Gas-X] 125 mg PO AC-TID PRN #20 capsule PRN Reason: Pain Naproxen [Naprosyn] 500 mg PO Q12HR PRN #30 tab PRN Reason: Pain Continue Montelukast [Singulair] 10 mg PO DAILY PRN PRN Reason: asthma symptoms Discontinued Naproxen Sodium [Aleve] 220 mg PO BID PRN PRN Reason: Pain Multivitamin/Iron/Folic Acid [Centrum Complete Multivit Tab] 1 tab PO DAILY Discharge Medication List Montelukast [Singulair] 10 mg PO DAILY PRN 01/14/22 [History] Acetaminophen Tab [Tylenol Tab] 1,000 mg PO Q6HR PRN #30 tablet 01/27/22 [Rx] Naproxen [Naprosyn] 500 mg PO Q12HR PRN #30 tab 01/27/22 [Rx] Simethicone [Gas-X] 125 mg PO AC-TID PRN #20 capsule 01/27/22 [Rx] Tamsulosin [Flomax] 0.4 mg PO DAILY #5 cap 01/27/22 [Rx] Follow up Appointment(s)/Referral(s): Kamilah Goodson MD [STAFF PHYSICIAN] - 02/04/22 (Telehealth) Patient Instructions/Handouts: *[facility] - Managing Your Pain After Surgery Without Opioids, *[facility] - (Anesthesia) Discharge Instructions Outpatient Surgery, Laparoscopic Herniorrhaphy (IP), Abdominal Binder (DC), Ventral Hernia Repair (GEN) Activity/Diet/Wound Care/Special Instructions: Using antibacterial soap. No lifting over 4 pounds 4 weeks, February 26 Use ice along incisions for today to prevent swelling. May shower. No bathtub soaks for 2 weeks, February 10 Wear abdominal binder daily for comfort except for showering. Use ice along incisions for today to prevent swelling. Discharge Disposition: HOME SELF-CARE
== END 2022-01-27 19:00 | disposition home or self-care (01) ==
LOC: OR 10:21
PROVIDERS: ATTEND Surgery Plastic and Reconstructive Surgery
DX: K43.0 Incisional hernia with obstruction, without gangrene (principal); K66.0 Peritoneal adhesions (postprocedural) (postinfection); Z96.89 Presence of other specified functional implants; J45.909 Unspecified asthma, uncomplicated; I11.9 Hypertensive heart disease without heart failure; E66.09 Other obesity due to excess calories; Z68.34 Body mass index [BMI] 34.0-34.9, adult; I35.0 Nonrheumatic aortic (valve) stenosis; M19.90 Unspecified osteoarthritis, unspecified site; G47.33 Obstructive sleep apnea (adult) (pediatric); Z86.711 Personal history of pulmonary embolism; R01.1 Cardiac murmur, unspecified; R13.10 Dysphagia, unspecified; Z87.19 Personal history of other diseases of the digestive system; Z98.890 Other specified postprocedural states; Z90.49 Acquired absence of other specified parts of digestive tract; Z98.1 Arthrodesis status; Z87.891 Personal history of nicotine dependence; Z90.81 Acquired absence of spleen; Z82.49 Family history of ischemic heart disease and other diseases of the circulatory system; Z80.9 Family history of malignant neoplasm, unspecified; Z88.6 Allergy status to analgesic agent
CPT/HCPCS: 49657; S2900; 64999; 80053; 85025; 88300; 88302

== ENCOUNTER → 2022-03-20 | Outpatient (CLI) | payer BC ==
--- NOTE | 2022-03-20 14:58 | USB ---
Patient History: Mother had ovarian cancer, age 48. Findings: The axilla of both breasts was scanned. Bilateral axillary ultrasound is performed. There are some prominent but benign-appearing lymph nodes demonstrated. On the right, these measure up to 2.8 x 1.6 x 0.8 cm. Normal uniform cortex and large fatty hilum. On the left, these measure up to 2.4 x 1.3 x 0.9 cm again, uniform cortex and large fatty hilum. No other solid or cystic lesion. The patient complained of pain while scanning over these regions. Overall Assessment: Benign, BI-RAD 2 Management: Clinical Management of both breasts in 1 year. For the patient's bilateral axillary pain. If a palpable abnormality develops, the area can be rescanned. Electronically signed and approved by: Roseann Morales M.D. Radiologist
--- NOTE | 2022-04-01 13:30 | MM ---
Reason for Exam: Clinical finding. Indicated Problems: Other indicated problem of both sides. Patient History: Mother had ovarian cancer, age 48. Tissue Density: There are scattered fibroglandular densities. Findings: Analyzed By CAD. Some prominent but nonenlarged bilateral symmetrical axillary nodes are noted. A benign intramammary lymph node left side upper outer quadrant. No significant mass, suspicious microcalcification, or other discrete abnormality is seen. Overall Assessment: Incomplete: need additional imaging evaluation, BI-RAD 0 Management: Diagnostic Breast Ultrasound of both breasts. At the symptomatic axilla on both sides. Electronically signed and approved by: Roseann Morales M.D. Radiologist
== END | disposition home or self-care (01) ==
LOC: RADMAMWWP 13:59
PROVIDERS: ATTEND Family Medicine
DX: Z12.31 Encounter for screening mammogram for malignant neoplasm of breast (principal); N64.4 Mastodynia; Z80.3 Family history of malignant neoplasm of breast
CPT/HCPCS: 77062; 77066

== ENCOUNTER → 2023-07-02 | Outpatient (CLI) | payer MEDICARE ==
--- NOTE | 2023-07-02 16:26 | MR ---
EXAMINATION TYPE: MR lumbar spine wo con DATE OF EXAM: 07/02/2023 COMPARISON: CT abdomen pelvis 12/11/2021 HISTORY: Lower back pain, RLE radiculopathy x 6 mos, hx injury. TECHNIQUE: Multiplanar, multisequence images of the lumbar spine were acquired without IV contrast. FINDINGS: Lumbar segments are intact. Bilateral pars defects at L5 without spondylolisthesis. No paraspinal mas ses are identified. Conus medullaris has a normal appearance. Multilevel disc desiccation. T12-L1: No herniation, protrusion or disc bulging. No canal stenosis is present. Bilateral facet ar thropathy. Foramina are patent bilaterally. L1-L2: No herniation, protrusion or disc bulging. No canal stenosis is present. Bilateral facet art hropathy. Foramina are patent bilaterally. L2-L3: No herniation, protrusion or disc bulging. No canal stenosis is present. Bilateral facet art hropathy. Foramina are patent bilaterally. L3-L4: Right lateral foraminal to extraforaminal zone disc herniation. Bilateral facet arthropathy wi th ligamentum flavum buckling. No significant central canal stenosis. Mild left and severe right neur al foraminal stenosis. L4-L5: Broad-based disc bulge with bilateral facet arthropathy. No significant central canal stenosis . Mild left neural foraminal stenosis. The right neural foramen is patent. L5-S1: No herniation, protrusion or disc bulging. No canal stenosis is present. Foramina are patent bilaterally. Bilateral T2 hyperintense renal cysts. IMPRESSION: 1. L3-L4 right lateral foraminal to extraforaminal zone disc herniation resulting in severe right ave ral foraminal stenosis. 2. Mild multilevel degenerative disc disease and facet arthropathy as described above.
== END | disposition home or self-care (01) ==
LOC: RADMRIMAIN 15:06
PROVIDERS: ATTEND Family Medicine
DX: M51.16 Intervertebral disc disorders with radiculopathy, lumbar region (principal); M99.73 Connective tissue and disc stenosis of intervertebral foramina of lumbar region; M47.26 Other spondylosis with radiculopathy, lumbar region
CPT/HCPCS: 72148

== ENCOUNTER → 2024-05-12 | Outpatient (CLI) | payer MEDICARE ==
[2024-05-12 16:36] VITALS: BP 151/86; PULSE 72; RESP 16; TEMP 98.1
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
== END ==
LOC: 3 N SLEEP 15:46
PROVIDERS: ATTEND Internal Medicine
CPT/HCPCS: 99211

== ENCOUNTER 2024-06-01 07:44 | Day surgery (SDC) | payer MEDICARE ==
[2024-05-30 14:39] VITALS: BMI 31.3
[~2024-06-01 07:44] MED LIST changes: -ACETAMINOPHEN TAB 500 MG TAB PO PRN; -DEXAMETHASONE SOD PHOSPHATE 4 MG/ML 1 ML VIAL IV ONE; -GABAPENTIN 300 MG CAP PO PRN; -HEPARIN SODIUM,PORCINE/PF 5,000 UNIT/0.5 ML SYRINGE SQ PRN; -HYDROmorphone 0.5 MG/0.5 ML SYRINGE IVP PRN; -LACTATED RINGERS 1,000 ML IV SCH; -METOCLOPRAMIDE 5 MG/ML 2 ML VIAL IVP PRN; -ONDANSETRON 4 MG/2 ML VIAL IVP ONE; -TAMSULOSIN 0.4 MG CAP.ER.24H PO PRN
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
[2024-06-01 08:16] VITALS: TEMP 97.9
[2024-06-01] MEDS: IV FLUID CONTINUATION 1,000 ML IV ONE (08:27)
[2024-06-01] MEDS: LACTATED RINGERS 1,000 ML IV SCH (08:27)
[2024-06-01] MEDS ORDERED: LIDOCAINE 2% (PF) 20 MG/ML 5 ML VIAL ONE (08:38)
[2024-06-01] MEDS ORDERED: PROPOFOL 10 MG/ML 20 ML VIAL IV ONE (08:38)
--- NOTE | 2024-06-01 08:57 | P.PCN ---
Date of Procedure: 06/01/24 Description of Procedure: PREOPERATIVE DIAGNOSIS: Gastroesophageal reflux disease. POSTOPERATIVE DIAGNOSIS: Acute gastric ulcers with bleeding, diffuse Acute gastritis with bleeding, diffuse Gastroesophageal reflux disease with erosive esophagitis OPERATION: Esophagogastroduodenoscopy with biopsies along esophagus, antrum and duodenum SURGEON: Kamilah Goodson MD ANESTHESIA: MAC. INDICATIONS: The patient is a 69-year-old male who presents with reflux disease. Benefits and risks of the procedure were described. Informed consent was obtained. DESCRIPTION: The patient was brought into the endoscopy suite and laid in the left lateral decubitus position. An Olympus gastroscope was passed along the posterior oropharynx down to the distal esophagus where the squamocolumnar junction was encountered at 40 cm from the incisors. The stomach was entered and no bile reflux was found. Additional findings are listed below. Biopsies with cold forceps were obtained of the antrum. The first through third portion of the duodenum was examined. Retroflexion of the scope confirmed Hill grade 2 lower esophageal valve. The squamocolumnar junction demonstrated LA grade B erosive esophagitis. The stomach was desufflated. The patient tolerated the procedure well. FINDINGS: Squamocolumnar junction 40 cm from the incisors. Diaphragmatic hiatus at 40 cm. Hill grade 2 lower esophageal valve. LA grade B erosive esophagitis. Biopsies obtained Biopsies obtained of the duodenum. Acute multiple punctate gastric ulcers diffuse involving gastric cardia, body, antrum with bleeding Acute gastritis with bleeding RECOMMENDATIONS: Omeprazole 40 mg daily for 4 weeks Carafate 1 g twice daily for 4 weeks Repeat upper endoscopy in 4 to 6 weeks
--- NOTE | 2024-06-01 09:19 | P.PCN ---
Date of Procedure: 06/01/24 Description of Procedure: PREOPERATIVE DIAGNOSIS: Personal history of colon polyps Colonoscopy screening POSTOPERATIVE DIAGNOSIS: Tubular adenoma transverse colon Sigmoid diverticulosis, severe Pandiverticulosis OPERATION: Colonoscopy to the ileocecal valve and cecum Colonoscopy with hot snare polypectomy SURGEON: Kamilah Goodson MD. ANESTHESIA: MAC. INDICATIONS: The patient is an 69-year-old male who presents personal history of colon polyps. Last colonoscopy 5 years. Benefits and risks were described and informed consent was obtained. DESCRIPTION OF PROCEDURE: The patient had undergone Sutab prep. The patient had been brought into the operating room and laid in the left lateral decubitus position. After adequate intravenous sedation, the rectum was examined with 2% lidocaine jelly. The prostate was unremarkable. External hemorrhoids were encountered. The rectal tone was within normal limits. No lesions were palpated in the rectal vault. An Olympus colonoscope was advanced until the cecum, ileocecal valve and appendiceal orifice were clearly viewed. The prep was good. Severe sigmoid diverticulosis with pandiverticulosis were encountered. Colonic polyps were found and removed. No evidence of focal colitis was found. Retroflexion of the scope demonstrated grade 2 internal hemorrhoids without active bleeding or inflammation. The colon was desufflated. The patient had tolerated the procedure well. Withdrawal time was over 6 minutes. FINDINGS: Aronchick preparation quality scale 2 (1-5) Internal hemorrhoids, grade 2 External hemorrhoids, grade 2. No arteriovenous malformations. Sigmoid diverticulosis, severe Pandiverticulosis, moderate Removal of 1 polyps: - Snare polypectomy in the transverse colon, 5 mm tubulovillous adenoma No focal colitis. RECOMMENDATIONS: Repeat colonoscopy 3 years, 2026 Plan - Discharge Summary Discharge Rx Participant: Yes New Discharge Prescriptions: New Sucralfate [Carafate] 1 gm PO BID #30 tablet Omeprazole [PriLOSEC] 40 mg PO DAILY #90 cap Continue Acetaminophen Tab [Tylenol] 1,000 mg PO Q6HR PRN #30 tablet PRN Reason: Pain Montelukast [Singulair] 10 mg PO DAILY PRN PRN Reason: asthma symptoms HYDROcodone/APAP 7.5-325MG [[place] 7.5-325] 1 tab PO QID Discharge Medication List Montelukast [Singulair] 10 mg PO DAILY PRN 01/14/22 [History] Acetaminophen Tab [Tylenol] 1,000 mg PO Q6HR PRN #30 tablet 01/27/22 [Rx] HYDROcodone/APAP 7.5-325MG [[place] 7.5-325] 1 tab PO QID 05/12/24 [History] Omeprazole [PriLOSEC] 40 mg PO DAILY #90 cap 06/01/24 [Rx] Sucralfate [Carafate] 1 gm PO BID #30 tablet 06/01/24 [Rx] Follow up Appointment(s)/Referral(s): Kamilah Goodson MD [STAFF PHYSICIAN] - 06/28/24 3:00 pm Patient Instructions/Handouts: Diverticulosis Diet (GEN), Diverticulosis (DC), Diet for Stomach Ulcers and Gastritis (GEN) Activity/Diet/Wound Care/Special Instructions: Repeat colonoscopy 3 years, 2026 Discharge Disposition: HOME SELF-CARE
[2024-06-01 09:39] VITALS: BP 121/54; PULSE 69; RESP 16
== END 2024-06-01 10:05 | disposition home or self-care (01) ==
LOC: ORWHC2ENDO 07:44
PROVIDERS: ATTEND Surgery Plastic and Reconstructive Surgery
DX: Z12.11 Encounter for screening for malignant neoplasm of colon (principal); D12.3 Benign neoplasm of transverse colon; K21.00 Gastro-esophageal reflux disease with esophagitis, without bleeding; K29.51 Unspecified chronic gastritis with bleeding; K57.30 Diverticulosis of large intestine without perforation or abscess without bleeding; I20.9 Angina pectoris, unspecified; G47.33 Obstructive sleep apnea (adult) (pediatric); J45.909 Unspecified asthma, uncomplicated; E78.5 Hyperlipidemia, unspecified; M19.90 Unspecified osteoarthritis, unspecified site; Z86.711 Personal history of pulmonary embolism; Z90.49 Acquired absence of other specified parts of digestive tract; Z90.89 Acquired absence of other organs; Z98.890 Other specified postprocedural states; Z87.891 Personal history of nicotine dependence; Z88.5 Allergy status to narcotic agent; Z79.01 Long term (current) use of anticoagulants; Z79.899 Other long term (current) drug therapy
CPT/HCPCS: 43239; 45385; 88305; 88342

== ENCOUNTER 2024-08-10 10:52 | Day surgery (SDC) | payer MEDICARE ==
[2024-08-08 16:46] VITALS: BMI 31.9
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
[2024-08-10] MEDS: IV FLUID CONTINUATION 1,000 ML IV ONE ×2 (11:01→11:53)
[2024-08-10 11:19] VITALS: RESP 16; TEMP 97.5
[2024-08-10] MEDS: LACTATED RINGERS 1,000 ML IV SCH (11:21)
[2024-08-10] MEDS ORDERED: PROPOFOL 10 MG/ML 20 ML VIAL IV ONE (11:59)
[2024-08-10 12:45] VITALS: BP 145/78; PULSE 70
--- NOTE | 2024-08-10 12:57 | P.PCN ---
Date of Procedure: 08/10/24 Description of Procedure: PREOPERATIVE DIAGNOSIS: H. pylori gastritis Gastroesophageal reflux disease. POSTOPERATIVE DIAGNOSIS: H. pylori gastritis Gastroesophageal reflux disease. OPERATION: Esophagogastroduodenoscopy with cold forceps biopsies along antrum SURGEON: Kamilah Goodson MD ANESTHESIA: MAC. INDICATIONS: The patient is a 69-year-old male who presents with H. pylori gastritis and reflux disease. Benefits and risks of the procedure were described. Informed consent was obtained. DESCRIPTION: The patient was brought into the endoscopy suite and laid in the left lateral decubitus position. An Olympus gastroscope was passed along the posterior oropharynx down to the distal esophagus where the squamocolumnar junction was encountered at 40 cm from the incisors. The stomach was entered and no bile reflux was found. Additional findings are listed below. Biopsies with cold forceps were obtained of the antrum. The first through third portion of the duodenum was examined. Retroflexion of the scope confirmed Hill grade 3 lower esophageal valve. The squamocolumnar junction demonstrated LA grade B erosive esophagitis. The stomach was desufflated. The patient tolerated the procedure well. FINDINGS: Squamocolumnar junction 40 cm from the incisors. Diaphragmatic hiatus at 40 cm. Hill grade 4 lower esophageal valve. LA grade B erosive esophagitis. Chronic gastritis with multiple cold forcep biopsies obtained RECOMMENDATIONS: Upper endoscopy as needed. Follow-up pathology with PCP Plan - Discharge Summary Discharge Rx Participant: No New Discharge Prescriptions: Continue Acetaminophen Tab [Tylenol] 1,000 mg PO Q6HR PRN #30 tablet PRN Reason: Pain Amoxicillin 1,000 mg PO Q12HR #56 cap Montelukast [Singulair] 10 mg PO DAILY HYDROcodone/APAP 7.5-325MG [[place] 7.5-325] 1 tab PO QID Multivitamin(Unknown Dose) 1 dose PO HS Discharge Medication List Montelukast [Singulair] 10 mg PO DAILY 01/14/22 [History] Acetaminophen Tab [Tylenol] 1,000 mg PO Q6HR PRN #30 tablet 01/27/22 [Rx] HYDROcodone/APAP 7.5-325MG [[place] 7.5-325] 1 tab PO QID 05/12/24 [History] Amoxicillin 1,000 mg PO Q12HR #56 cap 06/28/24 [Rx] Multivitamin(Unknown Dose) 1 dose PO HS 08/08/24 [History] Follow up Appointment(s)/Referral(s): Kamilah Goodson MD [STAFF PHYSICIAN] - 09/20/24 3:00 pm Patient Instructions/Handouts: *Surgery [facility] - (Anesthesia) Discharge Instructions Outpatient Surgery, Gastritis (DC), Upper Endoscopy (DC) Discharge Disposition: HOME SELF-CARE
== END 2024-08-10 13:15 | disposition home or self-care (01) ==
LOC: ORWHC2ENDO 10:52
PROVIDERS: ATTEND Surgery Plastic and Reconstructive Surgery
DX: K29.50 Unspecified chronic gastritis without bleeding (principal); K21.9 Gastro-esophageal reflux disease without esophagitis; K44.9 Diaphragmatic hernia without obstruction or gangrene; B96.81 Helicobacter pylori [H. pylori] as the cause of diseases classified elsewhere; G47.30 Sleep apnea, unspecified; J45.909 Unspecified asthma, uncomplicated; M19.90 Unspecified osteoarthritis, unspecified site; Z86.711 Personal history of pulmonary embolism; Z87.891 Personal history of nicotine dependence; Z90.49 Acquired absence of other specified parts of digestive tract; Z90.89 Acquired absence of other organs; Z98.890 Other specified postprocedural states; Z99.89 Dependence on other enabling machines and devices
CPT/HCPCS: 88305; 88342; 43239; J2704

== ENCOUNTER → 2024-08-30 | Outpatient (CLI) | payer MEDICARE ==
--- NOTE | 2024-08-30 14:31 | XR ---
EXAMINATION TYPE: XR chest 2V DATE OF EXAM: 08/30/2024 2:23 PM COMPARISON: 09/21/2018 CLINICAL INDICATION: Male, 69 years old with history of R05.9 COUGH, UNSPECIFIED R53.1 WEAKNESS, , TECHNIQUE: Frontal and lateral views FINDINGS: Heart normal size. Aorta and pulmonary vasculature are within normal limits. Mild interstitial promin ence has a chronic appearance. Strandy atelectasis or scarring at the left base. Large appearance to the right main pulmonary artery and the lateral view. Otherwise, no consolidation or pleural effusion . IMPRESSION: Chronic changes and underlying pulmonary arterial hypertension. No definite acute process. [facility], , 08/30/2024 2:29 PM
== END | disposition home or self-care (01) ==
LOC: RADXRMAIN 13:59
PROVIDERS: ATTEND Family Medicine
DX: I27.21 Secondary pulmonary arterial hypertension (principal); R53.1 Weakness
CPT/HCPCS: 71046

== ENCOUNTER → 2024-09-05 | Outpatient (CLI) | payer MEDICARE ==
[2024-09-05 17:49] LABS: HCT 41.1 % (39.6-50.0); HGB 13.4 g/dL (13.0-17.0); MCH 30.7 pg (27.0-32.0); MCHC 32.6 g/dL (32.0-37.0); MCV 94.3 FL (80.0-97.0); Mean Platelet Volume 11.1 FL (9.5-12.2); NRBC Per 100 WBC 0 X 10*3/uL (0.00-0.01); Platelet Count 370 X 10*3/uL (140-440); RBC 4.36 X 10*6/uL (4.40-5.60); RDW 14.4 % (11.5-14.5); WBC 10.01 X 10*3/uL (4.50-10.00)
[2024-09-05 18:14] LABS: Blood Urea Nitrogen 13.4 mg/dL (9.0-27.0); Chloride 106 mmol/L (96-109); Chol/HDL Ratio 4.09 Ratio; Glucose 108 mg/dL (70-110); LDL Cholesterol,Calculated 118.2 mg/dL (0.0-131.0); Potassium 4.9 mmol/L (3.5-5.5); Sodium 142 mmol/L (135-145)
[2024-09-05 18:15] LABS: ALT 17 U/L (10-49); AST 21 U/L (14-35); Carbon Dioxide 25.6 mmol/L (21.6-31.8)
== END | disposition home or self-care (01) ==
LOC: LABWHC1 11:40
PROVIDERS: ATTEND Internal Medicine Cardiovascular Disease
DX: E78.2 Mixed hyperlipidemia (principal)
CPT/HCPCS: 36415; 80048; 80061; 84450; 84460; 85027

== ENCOUNTER 2024-09-09 05:34 | Day surgery (SDC) | payer MEDICARE ==
[2024-09-09] MEDS ORDERED: ALPRAZolam 0.5 MG TAB PO PRN (05:59)
[2024-09-09] MEDS ORDERED: NITROGLYCERIN SL TABS 0.4 MG TAB SUBLINGUAL PRN (05:59)
[2024-09-09] MEDS ORDERED: ALPRAZolam 0.25 MG TAB PO PRN (05:59)
[2024-09-09 06:13] VITALS: RESP 16; TEMP 98.4
[2024-09-09] MEDS: IV FLUID CONTINUATION 1,000 ML IV ONE ×2 (06:35→07:16)
[2024-09-09] MEDS: SODIUM CHLORIDE 0.9% 1,000 ML in EMPTY BAG 1 BAG IV SCH (07:07)
[2024-09-09] MEDS: ATORVASTATIN 80 MG TAB PO ONE (07:08)
[2024-09-09] MEDS: HEPARIN SODIUM,PORCINE 10,000 UNIT in SODIUM CHLORIDE 0.9% 1,000 ML IRRIGATION PRN (07:16)
[2024-09-09] MEDS: HEPARIN SODIUM,PORCINE (1 ML) 2,500 UNIT in SODIUM CHLORIDE 0.9% 250 ML IRRIGATION PRN (07:16)
[2024-09-09] MEDS: MIDAZOLAM 2 MG/2 ML VIAL IVP ONE (07:22)
[2024-09-09] MEDS: LIDOCAINE 1% INJ 10MG/ML (20 ML MDV) SQ ONE (07:23)
[2024-09-09] MEDS: fentaNYL (PF) 50 MCG/ML 2 ML AMP IVP ONE (07:23)
[2024-09-09] MEDS: VERAPAMIL SYRINGE (5 MG/10 ML) INTRAARTER ONE (07:25)
[2024-09-09] MEDS: HEPARIN SODIUM 1,000 UN/ML (10ML VL) IV ONE (07:28)
[2024-09-09] MEDS: IOPAMIDOL-370 100ML BTL INJ ONE ×2 (07:34)
[2024-09-09] MEDS: BENZOCAINE SPRAY 1 EACH MM ONE (07:48)
--- NOTE | 2024-09-09 08:08 | CC ---
CARDIAC CATHETERIZATION REPORT INDICATION: Severe symptomatic aortic stenosis. PROCEDURE NOTE: After obtaining informed consent, left heart catheterization was performed via the right radial artery using standard [place] catheters. The patient tolerated the procedure well without any obvious immediate complications, received moderate conscious sedation. Total sedation time was 18 minutes. Right radial artery access was obtained using Seldinger technique, 6-Somali sheath was placed. Catheters and wires were floated into the ascending aorta under fluoroscopic guidance. The patient underwent an aortogram also. FINDINGS: 1. HEMODYNAMICS: Central aortic pressure is 126/63 mm. 2. LEFT VENTRICULOGRAM: Left ventriculogram is not performed. 3. AORTOGRAM: Aortogram was performed in left lateral position. Ascending aorta does not appear aneurysmally dilated. There is 1 to 2+ aortic regurgitation noted. 4. ANGIOGRAPHIC DATA: a.Right coronary artery: Right coronary artery is a small nondominant vessel and is free of stenosis. b.Left main coronary artery: Left main coronary artery is a normal-sized vessel and is free of stenosis. Divides into left anterior descending coronary artery and circumflex coronary artery. c.LAD and its branches, circumflex coronary artery and its branches are free of significant stenosis. CONCLUSIONS: 1. Normal coronary arteries. 2. No evidence of ascending aortic aneurysm on the aortic root shot. PLAN: I will perform a transesophageal echo and refer the patient to CT surgery. MMODL / IJN: [id number] /
--- NOTE | 2024-09-09 08:26 | ECHOT ---
TRANSESOPHAGEAL ECHOCARDIOGRAM INDICATION: Aortic stenosis. PROCEDURE NOTE: After obtaining informed consent, transesophageal echocardiogram was performed in left lateral position using an Omniplane probe. Local and IV sedation were obtained using Xylocaine spray, Versed, and fentanyl. The patient tolerated the procedure well without any obvious immediate complications. Total sedation time was 10 minutes. FINDINGS: 1. Aortic valve: Aortic valve appears to be a bicuspid aortic valve that is heavily calcified with severe restriction in leaflet mobility. By planimetry, the valve area seems somewhere around 0.6 squared cm. Mitral valve is anatomically normal. There is mild mitral regurgitation noted. There was mild aortic regurgitation. Ascending aorta measures normally. There is mild tricuspid regurgitation. Interatrial septum appears aneurysmal. There is no evidence of fgzj-mn-srhyk shunt by color-flow Doppler or rreqq-um-snzb shunt by agitated saline contrast study. 2. There is no evidence of yxojj-ti-pikw shunt by agitated saline contrast study or acqy-gw-bprmr shunt by color-flow Doppler. 3. Left atrium appears enlarged. 4. Right atrium and right ventricle seem within normal limits. 5. Left ventricle has normal size and systolic function. CONCLUSIONS: 1. Severe aortic stenosis involving what appears like a bicuspid aortic valve with mild aortic regurgitation. 2. Normal LV function. PLAN: I am going to refer the patient to CT Surgery for surgical aortic valve replacement. The [facility] [place] depending upon his insurance coverage. MMODL / IJN: [id number] /
[2024-09-09 17:30] VITALS: BP 107/56; PULSE 62
== END 2024-09-09 11:59 | disposition home or self-care (01) ==
LOC: CATHCVL 05:34
PROVIDERS: ATTEND Internal Medicine Cardiovascular Disease
DX: I08.3 Combined rheumatic disorders of mitral, aortic and tricuspid valves (principal); Z79.899 Other long term (current) drug therapy
CPT/HCPCS: 93312; 93320; 93325; 93454; 93567; C1769; C1894; J2250; J1644 ×3; J2003; J3010; Q9967

== ENCOUNTER → 2024-10-31 | Outpatient (CLI) | payer OTHER ==
[2024-10-31 10:02] LABS: Partial Thromboplastin Time 23.7 sec (22.0-30.0); Prothrombin Time 11.2 sec (10.0-12.5)
[2024-10-31 15:11] LABS: HCT 40.8 % (39.6-50.0); HGB 13.3 g/dL (13.0-17.0); MCH 30.9 pg (27.0-32.0); MCHC 32.6 g/dL (32.0-37.0); MCV 94.9 FL (80.0-97.0); Mean Platelet Volume 11.2 FL (9.5-12.2); NRBC Per 100 WBC 0 X 10*3/uL (0.00-0.01); Platelet Count 334 X 10*3/uL (140-440); RDW 14.1 % (11.5-14.5); WBC 11.01 X 10*3/uL (4.50-10.00)
[2024-10-31 15:25] LABS: BUN/Creat Ratio 18.67 Ratio (12.00-20.00); Blood Urea Nitrogen 16.8 mg/dL (9.0-27.0); Glucose 101 mg/dL (70-110)
[2024-10-31 15:26] LABS: ALT 15 U/L (10-49); AST 20 U/L (14-35); Albumin 4.1 g/dL (3.8-4.9); Albumin/Globulin Ratio 1.46 Ratio (1.60-3.17); Alkaline Phosphatase 61 U/L (41-126); Calcium 9.8 mg/dL (8.7-10.3); Carbon Dioxide 24.1 mmol/L (21.6-31.8); Chloride 105 mmol/L (96-109); Globulin 2.8 g/dL (1.6-3.3); Potassium 4.6 mmol/L (3.5-5.5); Sodium 140 mmol/L (135-145); Total Bilirubin 0.6 mg/dL (0.3-1.2); Total Protein 6.9 g/dL (6.2-8.2)
== END | disposition home or self-care (01) ==
LOC: LABWHC1 08:49
PROVIDERS: ATTEND Thoracic Surgery (Cardiothoracic Vascular Surgery)
DX: Z01.810 Encounter for preprocedural cardiovascular examination (principal); I35.0 Nonrheumatic aortic (valve) stenosis
CPT/HCPCS: 36415; 80053; 85027; 85610; 85730; 86850; 86900; 86901; 86920; 87070

== ENCOUNTER 2024-11-04 05:34 | Inpatient (IN) | payer OTHER ==
--- NOTE | 2024-10-31 11:54 | P.PN ---
Progress Note - Text Progress Note Date: 10/31/24 5 meter walk test completed without difficulty: #1 3.12 sec #2 3.17 sec #3 3.25 sec STS risk score was discussed with patient at TAVR clinic, CFS is 3.
[2024-11-04] MEDS: METOPROLOL TARTRATE 12.5 MG TAB PO ONE (06:08)
[2024-11-04] MEDS: ATORVASTATIN 10 MG TAB PO ONE (06:08)
[2024-11-04] MEDS: LIDOCAINE 1% (10MG/ML) FOR IV START INTRADERMA STA (06:10)
[2024-11-04] MEDS: LACTATED RINGERS 1,000 ML IV ONE (06:10)
[2024-11-04] MEDS: IV FLUID CONTINUATION 1,000 ML IV ONE (06:20)
[2024-11-04 06:35] LABS: Glucose,Whole Blood 120 mg/dL (70-110)
[2024-11-04] MEDS ORDERED: MIDAZOLAM HCL 10 MG/10 ML VIAL ONE (07:38)
[2024-11-04] MEDS ORDERED: ELECTROLYTE-R (PH 7.4) 1,000 ML IV.SOLN IV ONE (07:38)
[2024-11-04] MEDS ORDERED: LIDOCAINE 1% INJ 10MG/ML (20 ML MDV) ONE (07:38)
[2024-11-04] MEDS ORDERED: fentaNYL (PF) 50 MCG/ML 50 ML VIAL ONE (07:38)
[2024-11-04] MEDS ORDERED: TRANEXAMIC 1,000 MG/100ML-NACL PREMIX BAG ONE (07:38)
[2024-11-04] MEDS ORDERED: SODIUM CHLORIDE 0.9% IRRIG 1,000 ML BTL IRRIGATION ONE (07:38)
[2024-11-04] MEDS ORDERED: HEPARIN SODIUM,PORCINE 5,000 UNIT/ML 1 ML VIAL ONE (07:38)
[2024-11-04] MEDS ORDERED: HEPARIN SODIUM,PORCINE 10,000 UNIT/ML 1 ML VIAL ONE (07:38)
[2024-11-04] MEDS ORDERED: PROPOFOL 10 MG/ML 20 ML VIAL IV ONE (07:38)
[2024-11-04] MEDS ORDERED: PROTAMINE SULFATE 10 MG/ML 25 ML VIAL IV ONE (07:38)
[2024-11-04] MEDS ORDERED: CALCIUM CHLORIDE 100 MG/ML 10 ML SYRINGE ONE (07:38)
[2024-11-04] MEDS ORDERED: VECURONIUM 10 MG VIAL IV ONE (07:38)
[2024-11-04 08:31] LABS: ABG Base Excess 1.8 mmol/L; ABG Glucose Whole Blood 98 mg/dL (75-99); ABG HCO3 28 mmol/L (21-25); ABG Hematocrit 35 % (34.0-46.0); ABG Oxygen Saturation 99.3 % (94-97); ABG PCO2 50 mmHg (35-45); ABG PH 7.36 (7.35-7.45); ABG PO2 362 mmHg (83-108); ABG Sodium Whole Blood 142 mmol/L (135-146); ABG TCO2 26 mmol/L (19-24); Allen Test Performed? Yes
[2024-11-04] MEDS: HEPARIN SODIUM,PORCINE (1 ML) 5,000 UNIT in SODIUM CHLORIDE 0.9% 500 ML 500 ML IV ONE (08:55)
[2024-11-04] MEDS: ceFAZolin 1,000 MG in SODIUM CHLORIDE 0.9% IRRIGATIO 1,000 ML IRRIGATION ONE (08:55)
[2024-11-04 09:21] LABS: ABG Base Excess 1.6 mmol/L; ABG Glucose Whole Blood 102 mg/dL (75-99); ABG HCO3 27 mmol/L (21-25); ABG Hematocrit 34 % (34.0-46.0); ABG Ionized Calcium 4.8 mg/dL (4.5-5.3); ABG Lactic Acid Whole Blood 1.4 mmol/L (0.5-1.6); ABG Oxygen Saturation 99.2 % (94-97); ABG PCO2 44 mmHg (35-45); ABG PH 7.39 (7.35-7.45); ABG PO2 206 mmHg (83-108); ABG Potassium Whole Blood 4.1 mmol/L (3.4-4.5); ABG Sodium Whole Blood 140 mmol/L (135-146); ABG TCO2 25 mmol/L (19-24); Allen Test Performed? Yes
--- NOTE | 2024-11-04 09:37 | P.ANPRN ---
Procedure Note - Anesthesia - Invasive Line Right Central Line Time Out Performed: Yes (0714) Date of Procedure: 11/04/24 Time of Procedure: 07:15 Location of Patient: Phase I Preparation: Sterile Prep, Sterile Dressing Central Line Location: Internal Jugular (right ij cordis) Ultrasound Used: Yes Purpose - Visualization and Identification of Vasculature: Yes Needle Guage: 18g angio Image Stored and Saved: Yes Narrative: Invasive line placement per sterile protocol utilized. Anesthesia note Procedure: Right internal jugular central venous catheter insertion: 8.5-Bangl[place]hi Cordis Sterile protocol followed. Right neck prepped. Ultrasound used. Lidocaine 1% used. Using ultrasound local anesthetic was instilled site over right Internal Jugular vein. Angiocath was used to gain access via ultrasound. Once free flow non-pulsatile blood flow was confirmed, 12 inch extension tubing was then placed on Angiocath. Once central venous pressure was confirmed, J-wire was then placed through Angiocath. Angiocath was then withdrawn. Local was instilled at J-wire site. Small skin alban was then made with provided sterile scalpel. 8.5- Bangl[place]hi Cordis was then inserted over the wire while maintaining control of wire at all times. Uneventful insertion with dilation. Free flow nonpulsatile blood flow through Cordis. Hooked up to IV tubing. Secured with suture. Dressings applied. Drapes Removed. Attempts x1.
--- NOTE | 2024-11-04 09:38 | P.ANPRN ---
Procedure Note - Anesthesia - Invasive Line Right [place] Vijay Time Out Performed: Yes (0714) Date of Procedure: 11/04/24 Time of Procedure: 07:28 Location of Patient: Phase I Preparation: Sterile Prep, Sterile Dressing [place] Vijay Line Location: Internal Jugular (rihgt) Narrative: Invasive line placement per sterile protocol utilized. Anesthesia note Procedure right [place]-Vijay catheter placed through right internal jugular central venous catheter Sterile protocol maintained from previous procedure. [place]-Vijay catheter sterilely placed in sheath and flushed prior to insertion. After advancing 15 cm [place]-Vijay catheter was then slowly inserted with balloon up. Advanced through CVP, RV to PA waveform. [place]-Vijay catheter wedged around the meters. Balloon down. Catheter withdrawn 5 cm. . No wedge. Proximal and distal sites locked on sheath. Attempts x 2. Sterile drapes removed and dressings applied.
[2024-11-04 09:40] LABS: ABG Base Excess 2.5 mmol/L; ABG Glucose Whole Blood 97 mg/dL (75-99); ABG HCO3 27 mmol/L (21-25); ABG Hematocrit 29 % (34.0-46.0); ABG Lactic Acid Whole Blood 1.2 mmol/L (0.5-1.6); ABG Oxygen Saturation >99.4 % (94-97); ABG PCO2 38 mmHg (35-45); ABG PH 7.45 (7.35-7.45); ABG Potassium Whole Blood 4.1 mmol/L (3.4-4.5); ABG Sodium Whole Blood 142 mmol/L (135-146); Allen Test Performed? Yes
--- NOTE | 2024-11-04 09:41 | P.ANPRN ---
Procedure Note - Anesthesia - ESA Intraop Pre Bypass ESA Intraop - Anesthesia Indication: aortic stenosis Date of Procedure: 11/04/24 Pre-operative Diagnosis: aortic stenosis Post-operative Diagnosis: same, s/p AVR Surgeon: Eddie Virk Ejection Fraction: Normal Regional Wall Motion Abnormalities: None Left Ventricle Hypertrophy: No R. Ventricle Function: Normal Anatomy: Other (Bicuspid) Aortic Stenosis: Severe Aortic Regurgitation: Trace Other Findings: debbie 0.7 with calculated 0.6 Mitral Stenosis: None Mitral Regurgitation: None Tricuspid Stenosis: None Tricuspid Regurgitation: Trace Pulmonic Stenosis: None Pulmonic Regurgitation: None R. Atrial Dilation: No R. Atrial PFO: No L. Atrial Dilation: No Aortic Dissection: No Aortic Calcification: None Plural Effusion: None
[2024-11-04 10:04] LABS: ABG Glucose Whole Blood 108 mg/dL (75-99); ABG HCO3 27 mmol/L (21-25); ABG Hematocrit 30 % (34.0-46.0); ABG Ionized Calcium 4.6 mg/dL (4.5-5.3); ABG Lactic Acid Whole Blood 1.5 mmol/L (0.5-1.6); ABG Oxygen Saturation >99.4 % (94-97); ABG PCO2 44 mmHg (35-45); ABG Potassium Whole Blood 4.2 mmol/L (3.4-4.5); ABG Sodium Whole Blood 141 mmol/L (135-146); Allen Test Performed? Yes
[2024-11-04 11:25] LABS: ABG PO2 >420 mmHg (83-108)
[2024-11-04 11:26] LABS: ABG PO2 >420 mmHg (83-108)
[2024-11-04] MEDS ORDERED: DEXTROSE 5% IN WATER 100 ML with AMIODARONE 150 MG IV PRN (12:13)
[2024-11-04] MEDS ORDERED: CALCIUM GLUCONATE IN NACL 2 GM in SALINE 1 100ML.BAG IVPB PRN (12:13)
[2024-11-04] MEDS ORDERED: Magnesium Replacement Protocol 1 EACH MISC MISCELLANE PRN (12:13)
[2024-11-04] MEDS ORDERED: METOCLOPRAMIDE 5 MG/ML 2 ML VIAL IVP PRN (12:13)
[2024-11-04] MEDS ORDERED: IPRATROPIUM-ALBUTEROL 3 ML NEB INHALATION PRN (12:13)
[2024-11-04] MEDS ORDERED: AMIODARONE 360 MG in DEXTROSE 5% IN WATER 200 ML IV PRN (12:13)
[2024-11-04] MEDS ORDERED: AMIODARONE 450 MG in DEXTROSE 5% IN WATER 250 ML IV PRN (12:13)
[2024-11-04] MEDS ORDERED: Potassium Replacement Protocol 1 EACH MISC MISCELLANE PRN (12:13)
[2024-11-04] MEDS ORDERED: BENZOCAINE/MENTHOL LOZENG 1 EACH LOZENGE MUCOUS MEM PRN (12:13)
[2024-11-04] MEDS ORDERED: DEXTROSE 50% SYRINGE 50 ML IVP PRN ×2 (12:13)
[2024-11-04] MEDS ORDERED: ONDANSETRON 4 MG/2 ML VIAL IVP PRN (12:13)
--- NOTE | 2024-11-04 12:30 | P.OP ---
Date of Procedure: 11/04/24 Preoperative Diagnosis: Calcific aortic stenosis Postoperative Diagnosis: Same, tricuspid valve with partial fusion of right and left coronary cusps Procedure(s) Performed: Aortic valve replacement with 27 mm Zaamrripa Inspiris bovine pericardial valve, ligation left atrial appendage with 40 mm AtriCure clip, ESA by anesthesia. Implants: 27 mm Zamarripa Inspiris pericardial aortic valve, 40 mm AtriCure clip Anesthesia: ELTON Surgeon: Eddie Virk Automatic Shirring Machine Operator #1: Trev Curry (Nurse practitioner) Automatic Shirring Machine Operator #2: Cristian Larsen (Nurse practitioner) Estimated Blood Loss (ml): 400 IV fluids (ml): 2,500 Urine output (ml): 250 Pathology: other (Aortic valve) Condition: stable Disposition: ICU Indications for Procedure: 69-year-old male with symptomatic calcific aortic stenosis. He was seen in the high risk valve clinic and felt to be most appropriate for surgical aortic valve replacement. Elective surgery was scheduled. Operative Findings: Heavily calcified tricuspid aortic valve with significant annular calcification as well. There was partial fusion between the left and right coronary cusps at the commissure. 27 mm valve fit snugly. ESA demonstrated no evidence of leak with good positioning of the valve and 4 mm gradient across the valve. Coronary ostia were well-preserved. Patient was pacer dependent on completion of the procedure. Underlying rhythm was junctional in the 60s. Left ventricular function was normal. Description of Procedure: Patient was brought to the operating room and placed supine on the table. General anesthesia was induced. ESA probe was placed. Anterior torso and bilateral lower extremities were sterilely prepped and draped. Midline sternotomy incision was performed. Left pleural space was opened widely and the right pleural space was opened slightly. Pericardium was opened in the midline and the heart was exposed with pericardial sutures. Patient was systemically heparinized. ACT's were maintained greater than 450 during the pump run. Patient was cannulated for cardiopulmonary bypass with a 7 mm soft flow cannula in the distal ascending aorta and a two-stage venous cannula through the right atrial appendage into the inferior vena cava. Antegrade and retrograde cardioplegia lines were placed in standard fashion. Patient was placed on cardiopulmonary bypass and stabilized. 40 mm AtriCure clip was applied to the base of the left atrial appendage. Aorta was crossclamped and the heart arrested with cold crystalloid antegrade cardioplegia followed by retrograde cardioplegia. Left atrial vent was placed through a pursestring in the right superior pulmonary vein. Aorta was opened transversely and the aortic valve exposed. The valve was excised and the annulus debrided carefully of all calcium. Copious irrigation was used to prevent embolization of any calcific material. 3 pledgeted sutures were placed at the commissures with the pledgets on the ventricular side. The valve was sized and a 27 mm Inspiris valve was chosen and opened on the field. Circumferential valve sutures of 2-0 Tycron pledgeted suture were placed with pledgets on the ventricular side. Once these were all in place the sutures were passed through the sewing ring of the valve and the soft valve was seated without difficulty. Sutures were tied and cut. After further irrigation, aorta was closed with a 2 layer running closure of 4-0 Prolene suture. Atrial vent was removed and the pursestring tied. Patient was placed in steep Trendelenburg. Cross-clamp was removed. Retrograde cardioplegia line was removed. Atrial and ventricular pacing wires were placed and the patient was paced. Some volume was returned to the patient and the ventricle was allowed to eject. De-airing was monitored on ESA the aortic vent was removed and the site oversewn with a 6-0 Prolene suture. ESA demonstrated excellent valve function with no evidence of leak. Patient was weaned from cardiopulmonary bypass without the use of inotropic support. Heparin was reversed with protamine and the patient was decannulated in standard fashion. The aortic cannulation site was reinforced with a 4 oh pledgeted Prolene suture. Good hemostasis was noted throughout all the surgical sites. Left pleural space was drained with a 32 [place] chest tube in the mediastinum with a 36 [place] chest tube. Mediastinum was irrigated with antibiotic solution. Sternum was closed with 8 sternal wires. Fascia was closed with 0 Ethibond. Subcutaneous and subcuticular layers were closed with layers of Vicryl suture. Patient was transferred to ICU in stable condition on no inotropic support having received no blood transfusions.
[2024-11-04 12:37] LABS: Glucose,Whole Blood 118 mg/dL (70-110)
--- NOTE | 2024-11-04 12:38 | P.ANPRN ---
Procedure Note - Anesthesia - ESA Intraop Post Bypass ESA Intraop Post Bypass Procedure Performed: avr Ejection Fraction: Normal Regional Wall Motion Abnormalities: None R. Ventricle Function: Normal Aortic Valve: prostethic valve in place. No perivalvular leak. residual mean 4 Mitral Valve: Unchanged Tricuspid: Unchanged Pulmonic: Unchanged Aortic Dissection: No
[2024-11-04] MEDS: CLEVIDIPINE BUTYRATE 25 MG in EMPTY BAG 1 BAG IV PRN (12:50)
[2024-11-04 12:55] LABS: Basophils # (A) 0.1 k/uL (0-0.2); Basophils % (A) 0 %; Eosinophils # (A) 0.2 k/uL (0-0.7); Eosinophils % (A) 1 %; HCT 35.2 % (39.0-53.0); HGB 11.2 gm/dL (13.0-17.5); Lymphocytes # (A) 1.4 k/uL (1.0-4.8); Lymphocytes % (A) 6 %; MCH 30.8 pg (25.0-35.0); MCHC 31.9 g/dL (31.0-37.0); MCV 96.5 fL (80.0-100.0); Mean Platelet Volume 8.2; Monocytes % (A) 5 %; Neutrophils # (A) 19.3 k/uL (1.3-7.7); Neutrophils % (A) 88 %; Platelet Count 194 k/uL (150-450); RBC 3.65 m/uL (4.30-5.90); RDW 13.5 % (11.5-15.5); WBC 22.1 k/uL (3.8-10.6)
[2024-11-04 13:06] LABS: ABG Base Excess 0.5 mmol/L; ABG HCO3 28 mmol/L (21-25); ABG Oxygen Saturation 99.9 % (94-97); ABG PCO2 55 mmHg (35-45); ABG PH 7.31 (7.35-7.45); ABG PO2 234 mmHg (83-108); ABG TCO2 29 mmol/L (19-24)
[2024-11-04 13:06] LABS: Ionized Calcium 4.9 mg/dL (4.5-5.3)
[2024-11-04 13:07] LABS: Allen Test Performed? no
[2024-11-04 13:14] LABS: INR 1.2 (<1.2); Partial Thromboplastin Time 30.7 sec (22.0-30.0); Prothrombin Time 12.6 sec (10.0-12.5)
[2024-11-04] MEDS: SODIUM CHLORIDE 0.9% 1,000 ML IV SCH (13:20)
[2024-11-04 13:33] LABS: ALT 15 U/L (4-49); AST 29 U/L (17-59); African American GFR (CKD) >90 (>60 ml/min/1.73 sqM); Alkaline Phosphatase 45 U/L (38-126); Anion Gap 4 mmol/L; Blood Urea Nitrogen 14 mg/dL (9-20); Calcium 8.7 mg/dL (8.4-10.2); Carbon Dioxide 28 mmol/L (22-30); Chloride 106 mmol/L (98-107); Glucose 118 mg/dL (74-99); Non-African American GFR(CKD) 88 (>60 ml/min/1.73 sqM); Potassium 4.4 mmol/L (3.5-5.1); Sodium 138 mmol/L (137-145); Total Bilirubin 0.7 mg/dL (0.2-1.3); Total Protein 5.4 g/dL (6.3-8.2)
[2024-11-04 13:35] LABS: Glucose,Whole Blood 121 mg/dL (70-110)
--- NOTE | 2024-11-04 13:36 | XR ---
EXAMINATION TYPE: XR chest 1V portable DATE OF EXAM: 11/04/2024 CLINICAL INDICATION: Male, 69 years old with history of Post Operative Cardiac Surgery, progress stud y. TECHNIQUE: Single AP portable supine view of the chest is obtained. COMPARISON: Chest x-ray from August 30, 2024 FINDINGS: There is new Endotracheal tube terminating at aortic knob level approximately 2 to 3 cm ab ove the quirino. There is new orogastric tube with tip difficult to visualize past distal esophageal l evel. Consider KUB x-ray further evaluate if felt warranted. New left-sided chest tube and mediastina l drainage catheter. New overlying mediastinal clips and metallic aortic valve along with left atrial appendage clip. New right internal jugular [place]-Vijay catheter terminating at the pulmonary outflow t ract level. No pneumothorax seen bilaterally. More prominent cardiomegaly and central vascular congestion. There is left basilar opacity favoring atelectasis. IMPRESSION: 1. Tubes and lines as detailed above fairly satisfactory in position though distal orogastric tube ca nnot be clearly seen below the diaphragm. 2. There is new central vascular congestion and cardiomegaly. No pneumothorax seen with left-sided ch est tube in place. There is left basilar opacity favoring atelectasis noted. [facility], , 11/04/2024 1:34 PM
[2024-11-04] MEDS: INSULIN REGULAR 100 UNIT in SODIUM CHLORIDE 0.9% 100 ML IV SCH (13:43)
[2024-11-04 14:21] LABS: Glucose,Whole Blood 133 mg/dL (70-110)
[2024-11-04] MEDS: ACETAMINOPHEN IV (For NPO) 1,000 MG in EMPTY BAG 1 BAG IVPB SCH (14:25)
[2024-11-04] MEDS: ALBUMIN HUMAN 25% 50 ML IV ONE (14:43)
[2024-11-04] MEDS: ALBUMIN HUMAN 5% 500 ML IVPB ONE (14:43)
[2024-11-04] MEDS: INSULIN REGULAR 100 UNIT in SODIUM CHLORIDE 0.9% 100 ML IV ONE (14:44)
[2024-11-04] MEDS: CLEVIDIPINE BUTYRATE 25 MG in EMPTY BAG 1 BAG IV ONE (14:44)
[2024-11-04] MEDS: CARDIOPLEGIC SOLN (K+ 16 MEQ/L 1,000 ML with SODIUM BICARB (1 MEQ/ML) 20 ML, LIDOCAINE ... PERFUSION ONE (14:44)
[2024-11-04] MEDS: NITROGLYCERIN-D5W PMX 50 MG in DEXTROSE/WATER 1 250ML.BAG IV ONE (14:45)
[2024-11-04] MEDS: PAPAVERINE 360 MG in SODIUM CHLORIDE 0.9% 90 ML IV ONE (14:45)
[2024-11-04] MEDS: MAGNESIUM SULFATE 16.24 MEQ in EMPTY SYRINGE 1 SYR IV ONE (14:45)
[2024-11-04] MEDS: PHENYLEPHRINE 40 MG in SODIUM CHLORIDE 0.9% 250 ML IV ONE (14:45)
[2024-11-04] MEDS: NOREPINEPHRINE 4 MG in SODIUM CHLORIDE 0.9% 250 ML IV ONE (14:45)
[2024-11-04] MEDS: SODIUM CHLORIDE 0.9% 1,000 ML IV ONE (14:46)
[2024-11-04] MEDS: PROTAMINE SULFATE 250 MG in EMPTY BAG 1 BAG IV ONE (14:46)
[2024-11-04] MEDS: propofoL 1,000 MG/100 ML VIAL IV ONE (14:46)
[2024-11-04] MEDS: TRANEXAMIC ACID 2,000 MG in SODIUM CHLORIDE 0.9% 80 ML IV ONE (14:46)
[2024-11-04] MEDS: DEXMEDETOMIDINE/0.9% NACL(PMX) 400 MCG in EMPTY BAG 1 BAG IV SCH (15:04)
[2024-11-04 15:20] LABS: Glucose,Whole Blood 132 mg/dL (70-110)
[2024-11-04] MEDS: IPRATROPIUM-ALBUTEROL 3 ML NEB INHALATION SCH ×2 (15:24→16:47)
[2024-11-04 16:08] LABS: Glucose,Whole Blood 133 mg/dL (70-110)
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
[2024-11-04 16:23] LABS: Basophils # (A) 0.1 k/uL (0-0.2); Basophils % (A) 0 %; Eosinophils % (A) 0 %; HCT 36.4 % (39.0-53.0); HGB 11.8 gm/dL (13.0-17.5); Lymphocytes # (A) 1.1 k/uL (1.0-4.8); Lymphocytes % (A) 5 %; MCH 31.1 pg (25.0-35.0); MCHC 32.3 g/dL (31.0-37.0); MCV 96.4 fL (80.0-100.0); Mean Platelet Volume 8.1; Monocytes # (A) 1.2 k/uL (0-1.0); Monocytes % (A) 6 %; Neutrophils % (A) 88 %; Platelet Count 217 k/uL (150-450); RBC 3.78 m/uL (4.30-5.90); RDW 13.6 % (11.5-15.5); WBC 20.5 k/uL (3.8-10.6)
[2024-11-04] MEDS: HEPARIN SODIUM,PORCINE 5,000 UNIT/ML 1 ML VIAL SQ SCH (16:36)
[2024-11-04 17:06] LABS: Glucose,Whole Blood 123 mg/dL (70-110)
[2024-11-04 18:10] LABS: Glucose,Whole Blood 131 mg/dL (70-110)
[2024-11-04 18:49] LABS: Glucose,Whole Blood 133 mg/dL (70-110)
[2024-11-04 19:19] LABS: Basophils # (A) 0.1 k/uL (0-0.2); Basophils % (A) 0 %; Eosinophils % (A) 0 %; HGB 11.2 gm/dL (13.0-17.5); Lymphocytes # (A) 0.7 k/uL (1.0-4.8); Lymphocytes % (A) 3 %; MCH 30.1 pg (25.0-35.0); MCHC 31.1 g/dL (31.0-37.0); MCV 96.5 fL (80.0-100.0); Mean Platelet Volume 7.9; Monocytes % (A) 5 %; Neutrophils # (A) 19.8 k/uL (1.3-7.7); Neutrophils % (A) 91 %; Platelet Count 223 k/uL (150-450); RBC 3.73 m/uL (4.30-5.90); RDW 12.9 % (11.5-15.5); WBC 21.7 k/uL (3.8-10.6)
[2024-11-04] MEDS: NITROGLYCERIN-D5W PMX 50 MG in DEXTROSE/WATER 1 250ML.BAG IV SCH (19:30)
[2024-11-04 20:01] LABS: Glucose,Whole Blood 135 mg/dL (70-110)
[2024-11-04 20:49] LABS: Glucose,Whole Blood 140 mg/dL (70-110)
[2024-11-04] MEDS: SENNOSIDES-DOCUSATE SODIUM 1 EACH TAB PO SCH (21:00)
[2024-11-04 22:01] LABS: Glucose,Whole Blood 131 mg/dL (70-110)
[2024-11-04] MEDS: hydrALAZINE HCL 20 MG/ML 1 ML VIAL IVP PRN (22:33)
[2024-11-04 23:00] LABS: Glucose,Whole Blood 132 mg/dL (70-110)
[2024-11-04] MEDS: ACETAMINOPHEN TAB 325 MG TAB PO PRN (23:01)
[2024-11-05 00:01] LABS: Glucose,Whole Blood 137 mg/dL (70-110)
[2024-11-05 00:58] LABS: Glucose,Whole Blood 134 mg/dL (70-110)
[2024-11-05 02:03] LABS: Glucose,Whole Blood 127 mg/dL (70-110)
[2024-11-05 03:04] LABS: Glucose,Whole Blood 133 mg/dL (70-110)
[2024-11-05 04:49] LABS: Glucose,Whole Blood 131 mg/dL (70-110)
[2024-11-05 05:12] LABS: Basophils % (A) 0 %; Eosinophils % (A) 0 %; HCT 34.1 % (39.0-53.0); HGB 11.1 gm/dL (13.0-17.5); Lymphocytes # (A) 1.1 k/uL (1.0-4.8); Lymphocytes % (A) 6 %; MCHC 32.4 g/dL (31.0-37.0); MCV 95.5 fL (80.0-100.0); Mean Platelet Volume 8.2; Monocytes # (A) 1.7 k/uL (0-1.0); Monocytes % (A) 8 %; Neutrophils # (A) 17.3 k/uL (1.3-7.7); Neutrophils % (A) 85 %; Platelet Count 188 k/uL (150-450); RBC 3.57 m/uL (4.30-5.90); RDW 13.4 % (11.5-15.5); WBC 20.3 k/uL (3.8-10.6)
[2024-11-05 05:29] LABS: Ionized Calcium 4.8 mg/dL (4.5-5.3)
[2024-11-05 05:41] LABS: ALT 17 U/L (4-49); AST 46 U/L (17-59); African American GFR (CKD) >90 (>60 ml/min/1.73 sqM); Albumin 3.4 g/dL (3.5-5.0); Alkaline Phosphatase 45 U/L (38-126); Anion Gap 7 mmol/L; Blood Urea Nitrogen 14 mg/dL (9-20); Calcium 8.7 mg/dL (8.4-10.2); Carbon Dioxide 24 mmol/L (22-30); Chloride 104 mmol/L (98-107); Glucose 126 mg/dL (74-99); Magnesium 2.1 mg/dL (1.6-2.3); Non-African American GFR(CKD) >90 (>60 ml/min/1.73 sqM); Sodium 135 mmol/L (137-145); Total Bilirubin 0.8 mg/dL (0.2-1.3); Total Protein 5.8 g/dL (6.3-8.2)
[2024-11-05] MEDS: ALBUMIN HUMAN 5% 250 ML in EMPTY BAG 1 BAG IVPB PRN (06:10)
[2024-11-05 06:39] LABS: Glucose,Whole Blood 134 mg/dL (70-110)
[2024-11-05] MEDS: fentaNYL (PF) 50 MCG/ML 2 ML AMP IVP ONE (07:02)
[2024-11-05] MEDS: KETOROLAC 15 MG/ML 1 ML VIAL IVP SCH (07:11)
--- NOTE | 2024-11-05 07:27 | XR ---
EXAMINATION TYPE: XR chest 1V portable DATE OF EXAM: 11/05/2024 4:50 AM COMPARISON: Chest radiographs from 11/04/2024 TECHNIQUE: XR chest 1V portable Portable AP radiograph of the chest. CLINICAL INDICATION:Male, 69 years old with history of Post Operative Cardiac Surgery; FINDINGS: Lungs/Pleura: There is no evidence of pleural effusion or pneumothorax. Left basilar opacity likely r epresenting atelectasis. Pulmonary vascularity: Central pulmonary vascular congestion. Heart/mediastinum: Cardiomediastinal silhouette is enlarged and stable. Postsurgical changes from TA VR. Left atrial appendage occlusion devices present. Musculoskeletal: No acute osseous pathology. Midline sternotomy wires are noted and stable. Other findings: None Lines/Tubes: Interval removal of endotracheal and enteric tubes. Stable right IJ approach [place]-Vijay catheter distal tip in the region of the main pulmonary artery. Stable left chest tube. Stable mediastinal drain. IMPRESSION: 1. Post cardiac surgery with similar central vascular congestion and cardiomegaly. Left basilar opac ities representing atelectasis. 2. Interval removal of endotracheal and enteric tubes. Remaining support lines and tubes are stable. [facility], , 11/05/2024 7:25 AM
[2024-11-05 08:08] LABS: Glucose,Whole Blood 179 mg/dL (70-110)
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
[2024-11-05] MEDS: ASPIRIN 325 MG TAB PO SCH (08:59)
[2024-11-05] MEDS ORDERED: bisacodyL 10 MG SUPP RECTAL PRN (09:00)
[2024-11-05] MEDS: ATORVASTATIN 40 MG TAB PO SCH (09:00)
[2024-11-05] MEDS: PANTOPRAZOLE 40 MG/10 ML VIAL IVP SCH (09:00)
[2024-11-05] MEDS ORDERED: MAGNESIUM HYDROXIDE 2,400 MG/30 ML CUP PO PRN (09:00)
[2024-11-05] MEDS: CLOPIDOGREL 75 MG TAB PO SCH (09:00)
[2024-11-05] MEDS: METOPROLOL TARTRATE 12.5 MG TAB PO SCH (09:01)
[2024-11-05 09:12] LABS: Glucose,Whole Blood 151 mg/dL (70-110)
[2024-11-05] MEDS: HYDROcodone/APAP 10-325MG 1 EACH TAB PO PRN (10:38)
[2024-11-05 10:58] LABS: Glucose,Whole Blood 127 mg/dL (70-110)
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
[2024-11-05 12:08] LABS: Glucose,Whole Blood 136 mg/dL (70-110)
--- NOTE | 2024-11-05 13:15 | P.PN ---
Subjective Progress Note Date: 11/05/24 This is a 69-year-old male patient brought into the intensive care unit following cardiac surgery. Patient has severe calcified aortic stenosis and the patient underwent aortic valve replacement/bovine pericardial valve with ligation of the left atrial appendage. Patient was kept intubated on mechanical ventilator and the patient was brought into the intensive care unit. Currently, the patient is sedated on propofol which is running at 30 mcg/kg/min. The patient is on assist-control mode of mechanical ventilation. Initial blood. Noted that showed a pH of 7.31 and the patient's pCO2 is 55 and a pO2 of 134. Based on that, the patient was A rate of 2012 mechanical ventilator with a tidal volume of 500, FiO2 was up to 60% with a PEEP is currently at 8. Cardiac output is at 8.2 with an index of 3.8. Blood pressure is elevated and the patient is currently on nitroglycerin drip at 5 mcg/kg/min and Cleviprex drip at 6 mg an hour. The patient has mediastinal and left pleural chest tube. Output is minimal and the chest tube showing no evidence of any air leak. Chest x-ray was noted. The patient is holding his catheter in place. The patient has an orogastric and orotracheal tube both in place. There is some mild pulm vascular congestion. No other acute abnormalities. No evidence of any pneumothorax. Cardiac rhythm is sinus bradycardia and the patient is currently paced at a rate of 80. The white cell count of 22, hemoglobin 11.2 and a platelet count of 194. BUN is 40 with a creatinine of 0.8. Sodium levels at 138 and a potassium level is at 4.4. LFTs are normal. Patient was also started on insulin drip for blood sugar control. Producing adequate amount of urine output. Calm and comfortable. On 11/05/2024, the patient is being seen for a follow-up. The patient is postop day #1. The patient was weaned off the mechanical ventilator and the patient was extubated yesterday without any major difficulties. This morning, he is awake and alert and calm and comfortable and he is on oxygen 2 L/min nasal cannula. Using the incentive spirometer. The cardiac output is at 8.2 with an index of 3.8. CVP is at 8. PA pressures of 25/15. The patient is off nitrogly cerin drip. The patient is off clevidipine drip. Cardiac rhythm is sinus and the patient has a backup pacing at rate of 50. No other significant issues or complaints for now. The white cell count of 20 with a hemoglobin of 11.1 and a platelet count of 188. Sodium levels at 135, the BUN is 14 with a creatinine of 0.7 and a potassium level is at 4.0. Chest x-ray findings are essentially stable consistent with postop changes. The patient has a mediastinal left pleural chest tube and he has cardiomegaly and mild pulm vessel congestion and atelectatic changes in the left lung base. Objective - Vital Signs Vital signs: Vital Signs Temp 99.5 F 11/05/24 08:00 Pulse 87 11/05/24 09:00 Resp 12 11/05/24 09:00 BP 112/61 11/05/24 09:00 Pulse Ox 96 11/05/24 09:00 FiO2 60 11/04/24 16:30 Intake & Output 11/04/24 11/05/24 11/05/24 18:59 06:59 18:59 Intake Total 032.246 5520.867 142.729 Output Total 1565 1470 145 Balance -884.388 -377.133 -2.271 Weight 89.6 kg Intake: IV 206 1028 118 0.9ns pressure bag 54 108 18 CO/CI 100 320 Sodium Chloride 0.9% 1, 600 100 000 ml @ 30 mls/hr IV . Q24H [facility] Rx#:[id number] Intake, IV Titration 474.612 64.867 24.729 Amount ACETAMINOPHEN IV (For NPO 100 ) 1,000 mg In Empty Bag 1 bag @ 400 mls/hr IVPB Q6H [facility] Rx#:[id number] Clevidipine Butyrate 25 40.099 14.867 mg In Empty Bag 1 bag @ 1 MG/HR 2 mls/hr IV .Q24H PRN Rx#:[id number] Dexmedetomidine/0.9% NaCl 9.879 (Pmx) 400 mcg In Empty Bag 1 bag @ Titrate IV . Q0M [facility] Rx#:[id number] Insulin Regular 100 unit 4.091 24.729 In Sodium Chloride 0.9% 100 ml @ Per Protocol IV .Q0M [facility] Rx#:[id number] Sodium Chloride 0.9% 1, 300 50 000 ml @ 30 mls/hr IV . Q24H [facility] Rx#:[id number] propofoL 1,000 mg In 20.543 Empty Bag 1 bag @ Titrate IV .Q0M [facility] Rx#: [id number] Output: Chest Tube Drainage 215 385 50 Chest Tube Mediastinal 130 260 20 Pleural Catheter Left 85 125 30 Urine 950 1085 95 Estimated Blood Loss 400 Other: Voiding Method Indwelling Catheter Indwelling Catheter ABP, PAP, CO, CI - Last Documented Arterial Blood Pressure 150/44 Pulmonary Artery Pressure 20/7 Cardiac Output 8.2 Cardiac Index 3.8 - Exam This is a 69-year-old male patient brought into the intensive care unit following cardiac surgery. Patient has severe calcified aortic stenosis and the patient underwent aortic valve replacement/bovine pericardial valve with ligation of the left atrial appendage. Patient was kept intubated on mechanical ventilator and the patient was brought into the intensive care unit. Currently, the patient is sedated on propofol which is running at 30 mcg/kg/min. The patient is on assist-control mode of mechanical ventilation. Initial blood. Noted that showed a pH of 7.31 and the patient's pCO2 is 55 and a pO2 of 134. Based on that, the patient was A rate of 2012 mechanical ventilator with a tidal volume of 500, FiO2 was up to 60% with a PEEP is currently at 8. Cardiac output is at 8.2 with an index of 3.8. Blood pressure is elevated and the patient is currently on nitroglycerin drip at 5 mcg/kg/min and Cleviprex drip at 6 mg an hour. The patient has mediastinal and left pleural chest tube. Output is minimal and the chest tube showing no evidence of any air leak. Chest x-ray was noted. The patient is holding his catheter in place. The patient has an orogastric and orotracheal tube both in place. There is some mild pulm vascular congestion. No other acute abnormalities. No evidence of any pneumothorax. Cardiac rhythm is sinus bradycardia and the patient is currently paced at a rate of 80. The white cell count of 22, hemoglobin 11.2 and a platelet count of 194. BUN is 40 with a creatinine of 0.8. Sodium levels at 138 and a potassium level is at 4.4. LFTs are normal. Patient was also started on insulin drip for blood sugar control. Producing adequate amount of urine output. Calm and comfortable. - Labs CBC & Chem 7: 11/05/24 04:45 11/05/24 04:45 Labs: Abnormal Lab Results - Last 24 Hours (Table) 10/31/24 11/04/24 11/04/24 Range/Units 09:02 08:32 09:45 WBC (3.8-10.6) k/uL RBC (4.30-5.90) m/uL Hgb (13.0-17.5) gm/dL Hct (39.0-53.0) % Neutrophils # (1.3-7.7) k/uL Lymphocytes # (1.0-4.8) k/uL Monocytes # (0-1.0) k/uL PT (10.0-12.5) sec INR (<1.2) APTT (22.0-30.0) sec ABG pH (7.35-7.45) ABG pCO2 50 H (35-45) mmHg ABG pO2 362 H 206 H (83-108) mmHg ABG HCO3 28 H 27 H (21-25) mmol/L ABG Total CO2 26 H 25 H (19-24) mmol/L ABG O2 Saturation 99.3 H 99.2 H (94-97) % ABG Hematocrit (34.0-46.0) % ABG Ionized Calcium (4.5-5.3) mg/dL ABG Glucose 102 H (75-99) mg/dL Hemoglobin 11.5 L 11.2 L (13.0-17.5) gm/dL Sodium (137-145) mmol/L Glucose (74-99) mg/dL POC Glucose (mg/dL) (70-110) mg/dL Magnesium (1.6-2.3) mg/dL Total Protein (6.3-8.2) g/dL Albumin (3.5-5.0) g/dL Arterial Blood Glucose 102 H (75-99) mg/dL Crossmatch See Detail 11/04/24 11/04/24 11/04/24 Range/Units 10:04 10:28 12:36 WBC (3.8-10.6) k/uL RBC (4.30-5.90) m/uL Hgb (13.0-17.5) gm/dL Hct (39.0-53.0) % Neutrophils # (1.3-7.7) k/uL Lymphocytes # (1.0-4.8) k/uL Monocytes # (0-1.0) k/uL PT (10.0-12.5) sec INR (<1.2) APTT (22.0-30.0) sec ABG pH (7.35-7.45) ABG pCO2 (35-45) mmHg ABG pO2 >420 H >420 H (83-108) mmHg ABG HCO3 27 H 27 H (21-25) mmol/L ABG Total CO2 (19-24) mmol/L ABG O2 Saturation >99.4 H >99.4 H (94-97) % ABG Hematocrit 29 L 30 L (34.0-46.0) % ABG Ionized Calcium 4.0 L (4.5-5.3) mg/dL ABG Glucose 108 H (75-99) mg/dL Hemoglobin 9.4 L 9.7 L (13.0-17.5) gm/dL Sodium (137-145) mmol/L Glucose (74-99) mg/dL POC Glucose (mg/dL) 118 H (70-110) mg/dL Magnesium (1.6-2.3) mg/dL Total Protein (6.3-8.2) g/dL Albumin (3.5-5.0) g/dL Arterial Blood Glucose 108 H (75-99) mg/dL Crossmatch 11/04/24 11/04/24 11/04/24 Range/Units 12:36 12:36 12:36 WBC 22.1 H (3.8-10.6) k/uL RBC 3.65 L (4.30-5.90) m/uL Hgb 11.2 L (13.0-17.5) gm/dL Hct 35.2 L (39.0-53.0) % Neutrophils # 19.3 H (1.3-7.7) k/uL Lymphocytes # (1.0-4.8) k/uL Monocytes # (0-1.0) k/uL PT 12.6 H (10.0-12.5) sec INR 1.2 H (<1.2) APTT 30.7 H (22.0-30.0) sec ABG pH (7.35-7.45) ABG pCO2 (35-45) mmHg ABG pO2 (83-108) mmHg ABG HCO3 (21-25) mmol/L ABG Total CO2 (19-24) mmol/L ABG O2 Saturation (94-97) % ABG Hematocrit (34.0-46.0) % ABG Ionized Calcium (4.5-5.3) mg/dL ABG Glucose (75-99) mg/dL Hemoglobin (13.0-17.5) gm/dL Sodium (137-145) mmol/L Glucose 118 H (74-99) mg/dL POC Glucose (mg/dL) (70-110) mg/dL Magnesium 3.0 H (1.6-2.3) mg/dL Total Protein 5.4 L (6.3-8.2) g/dL Albumin 3.0 L (3.5-5.0) g/dL Arterial Blood Glucose (75-99) mg/dL Crossmatch 11/04/24 11/04/24 11/04/24 Range/Units 13:03 13:34 14:20 WBC (3.8-10.6) k/uL RBC (4.30-5.90) m/uL Hgb (13.0-17.5) gm/dL Hct (39.0-53.0) % Neutrophils # (1.3-7.7) k/uL Lymphocytes # (1.0-4.8) k/uL Monocytes # (0-1.0) k/uL PT (10.0-12.5) sec INR (<1.2) APTT (22.0-30.0) sec ABG pH 7.31 L (7.35-7.45) ABG pCO2 55 H (35-45) mmHg ABG pO2 234 H (83-108) mmHg ABG HCO3 28 H (21-25) mmol/L ABG Total CO2 29 H (19-24) mmol/L ABG O2 Saturation 99.9 H (94-97) % ABG Hematocrit (34.0-46.0) % ABG Ionized Calcium (4.5-5.3) mg/dL ABG Glucose (75-99) mg/dL Hemoglobin 11.6 L (13.0-17.5) gm/dL Sodium (137-145) mmol/L Glucose (74-99) mg/dL POC Glucose (mg/dL) 121 H 133 H (70-110) mg/dL Magnesium (1.6-2.3) mg/dL Total Protein (6.3-8.2) g/dL Albumin (3.5-5.0) g/dL Arterial Blood Glucose (75-99) mg/dL Crossmatch 11/04/24 11/04/24 11/04/24 Range/Units 15:19 15:39 16:07 WBC 20.5 H (3.8-10.6) k/uL RBC 3.78 L (4.30-5.90) m/uL Hgb 11.8 L (13.0-17.5) gm/dL Hct 36.4 L (39.0-53.0) % Neutrophils # 18.0 H (1.3-7.7) k/uL Lymphocytes # (1.0-4.8) k/uL Monocytes # 1.2 H (0-1.0) k/uL PT (10.0-12.5) sec INR (<1.2) APTT (22.0-30.0) sec ABG pH (7.35-7.45) ABG pCO2 (35-45) mmHg ABG pO2 (83-108) mmHg ABG HCO3 (21-25) mmol/L ABG Total CO2 (19-24) mmol/L ABG O2 Saturation (94-97) % ABG Hematocrit (34.0-46.0) % ABG Ionized Calcium (4.5-5.3) mg/dL ABG Glucose (75-99) mg/dL Hemoglobin (13.0-17.5) gm/dL Sodium (137-145) mmol/L Glucose (74-99) mg/dL POC Glucose (mg/dL) 132 H 133 H (70-110) mg/dL Magnesium (1.6-2.3) mg/dL Total Protein (6.3-8.2) g/dL Albumin (3.5-5.0) g/dL Arterial Blood Glucose (75-99) mg/dL Crossmatch 11/04/24 11/04/24 11/04/24 Range/Units 17:05 18:09 18:48 WBC 21.7 H (3.8-10.6) k/uL RBC 3.73 L (4.30-5.90) m/uL Hgb 11.2 L (13.0-17.5) gm/dL Hct 36.0 L (39.0-53.0) % Neutrophils # 19.8 H (1.3-7.7) k/uL Lymphocytes # 0.7 L (1.0-4.8) k/uL Monocytes # (0-1.0) k/uL PT (10.0-12.5) sec INR (<1.2) APTT (22.0-30.0) sec ABG pH (7.35-7.45) ABG pCO2 (35-45) mmHg ABG pO2 (83-108) mmHg ABG HCO3 (21-25) mmol/L ABG Total CO2 (19-24) mmol/L ABG O2 Saturation (94-97) % ABG Hematocrit (34.0-46.0) % ABG Ionized Calcium (4.5-5.3) mg/dL ABG Glucose (75-99) mg/dL Hemoglobin (13.0-17.5) gm/dL Sodium (137-145) mmol/L Glucose (74-99) mg/dL POC Glucose (mg/dL) 123 H 131 H (70-110) mg/dL Magnesium (1.6-2.3) mg/dL Total Protein (6.3-8.2) g/dL Albumin (3.5-5.0) g/dL Arterial Blood Glucose (75-99) mg/dL Crossmatch 11/04/24 11/04/24 11/04/24 Range/Units 18:48 20:00 20:49 WBC (3.8-10.6) k/uL RBC (4.30-5.90) m/uL Hgb (13.0-17.5) gm/dL Hct (39.0-53.0) % Neutrophils # (1.3-7.7) k/uL Lymphocytes # (1.0-4.8) k/uL Monocytes # (0-1.0) k/uL PT (10.0-12.5) sec INR (<1.2) APTT (22.0-30.0) sec ABG pH (7.35-7.45) ABG pCO2 (35-45) mmHg ABG pO2 (83-108) mmHg ABG HCO3 (21-25) mmol/L ABG Total CO2 (19-24) mmol/L ABG O2 Saturation (94-97) % ABG Hematocrit (34.0-46.0) % ABG Ionized Calcium (4.5-5.3) mg/dL ABG Glucose (75-99) mg/dL Hemoglobin (13.0-17.5) gm/dL Sodium (137-145) mmol/L Glucose (74-99) mg/dL POC Glucose (mg/dL) 133 H 135 H 140 H (70-110) mg/dL Magnesium (1.6-2.3) mg/dL Total Protein (6.3-8.2) g/dL Albumin (3.5-5.0) g/dL Arterial Blood Glucose (75-99) mg/dL Crossmatch 11/04/24 11/04/24 11/05/24 Range/Units 22:00 22:59 00:00 WBC (3.8-10.6) k/uL RBC (4.30-5.90) m/uL Hgb (13.0-17.5) gm/dL Hct (39.0-53.0) % Neutrophils # (1.3-7.7) k/uL Lymphocytes # (1.0-4.8) k/uL Monocytes # (0-1.0) k/uL PT (10.0-12.5) sec INR (<1.2) APTT (22.0-30.0) sec ABG pH (7.35-7.45) ABG pCO2 (35-45) mmHg ABG pO2 (83-108) mmHg ABG HCO3 (21-25) mmol/L ABG Total CO2 (19-24) mmol/L ABG O2 Saturation (94-97) % ABG Hematocrit (34.0-46.0) % ABG Ionized Calcium (4.5-5.3) mg/dL ABG Glucose (75-99) mg/dL Hemoglobin (13.0-17.5) gm/dL Sodium (137-145) mmol/L Glucose (74-99) mg/dL POC Glucose (mg/dL) 131 H 132 H 137 H (70-110) mg/dL Magnesium (1.6-2.3) mg/dL Total Protein (6.3-8.2) g/dL Albumin (3.5-5.0) g/dL Arterial Blood Glucose (75-99) mg/dL Crossmatch 11/05/24 11/05/24 11/05/24 Range/Units 00:57 02:01 03:02 WBC (3.8-10.6) k/uL RBC (4.30-5.90) m/uL Hgb (13.0-17.5) gm/dL Hct (39.0-53.0) % Neutrophils # (1.3-7.7) k/uL Lymphocytes # (1.0-4.8) k/uL Monocytes # (0-1.0) k/uL PT (10.0-12.5) sec INR (<1.2) APTT (22.0-30.0) sec ABG pH (7.35-7.45) ABG pCO2 (35-45) mmHg ABG pO2 (83-108) mmHg ABG HCO3 (21-25) mmol/L ABG Total CO2 (19-24) mmol/L ABG O2 Saturation (94-97) % ABG Hematocrit (34.0-46.0) % ABG Ionized Calcium (4.5-5.3) mg/dL ABG Glucose (75-99) mg/dL Hemoglobin (13.0-17.5) gm/dL Sodium (137-145) mmol/L Glucose (74-99) mg/dL POC Glucose (mg/dL) 134 H 127 H 133 H (70-110) mg/dL Magnesium (1.6-2.3) mg/dL Total Protein (6.3-8.2) g/dL Albumin (3.5-5.0) g/dL Arterial Blood Glucose (75-99) mg/dL Crossmatch 11/05/24 11/05/24 11/05/24 Range/Units 04:45 04:45 04:47 WBC 20.3 H (3.8-10.6) k/uL RBC 3.57 L (4.30-5.90) m/uL Hgb 11.1 L (13.0-17.5) gm/dL Hct 34.1 L (39.0-53.0) % Neutrophils # 17.3 H (1.3-7.7) k/uL Lymphocytes # (1.0-4.8) k/uL Monocytes # 1.7 H (0-1.0) k/uL PT (10.0-12.5) sec INR (<1.2) APTT (22.0-30.0) sec ABG pH (7.35-7.45) ABG pCO2 (35-45) mmHg ABG pO2 (83-108) mmHg ABG HCO3 (21-25) mmol/L ABG Total CO2 (19-24) mmol/L ABG O2 Saturation (94-97) % ABG Hematocrit (34.0-46.0) % ABG Ionized Calcium (4.5-5.3) mg/dL ABG Glucose (75-99) mg/dL Hemoglobin (13.0-17.5) gm/dL Sodium 135 L (137-145) mmol/L Glucose 126 H (74-99) mg/dL POC Glucose (mg/dL) 131 H (70-110) mg/dL Magnesium (1.6-2.3) mg/dL Total Protein 5.8 L (6.3-8.2) g/dL Albumin 3.4 L (3.5-5.0) g/dL Arterial Blood Glucose (75-99) mg/dL Crossmatch 11/05/24 11/05/24 11/05/24 Range/Units 06:38 08:07 09:11 WBC (3.8-10.6) k/uL RBC (4.30-5.90) m/uL Hgb (13.0-17.5) gm/dL Hct (39.0-53.0) % Neutrophils # (1.3-7.7) k/uL Lymphocytes # (1.0-4.8) k/uL Monocytes # (0-1.0) k/uL PT (10.0-12.5) sec INR (<1.2) APTT (22.0-30.0) sec ABG pH (7.35-7.45) ABG pCO2 (35-45) mmHg ABG pO2 (83-108) mmHg ABG HCO3 (21-25) mmol/L ABG Total CO2 (19-24) mmol/L ABG O2 Saturation (94-97) % ABG Hematocrit (34.0-46.0) % ABG Ionized Calcium (4.5-5.3) mg/dL ABG Glucose (75-99) mg/dL Hemoglobin (13.0-17.5) gm/dL Sodium (137-145) mmol/L Glucose (74-99) mg/dL POC Glucose (mg/dL) 134 H 179 H 151 H (70-110) mg/dL Magnesium (1.6-2.3) mg/dL Total Protein (6.3-8.2) g/dL Albumin (3.5-5.0) g/dL Arterial Blood Glucose (75-99) mg/dL Crossmatch Assessment and Plan Plan: Aortic valve replacement for severe aortic stenosis. The patient is currently postop day #1. Remains intubated on mechanical ventilator. Hemodynamically stable. The patient is off nitroglycerin drip. The patient is off clevidipine drip. Cardiac rhythm is sinus and the patient is hemodynamically stable with adequate cardiac output and index. Postthoracotomy, extubated and the patient is currently on 2 L of O2 nasal cannula. Chest tubes are still in place. Output is being monitored. No evidence of any air leak. No evidence of any pneumothorax. Chest x-ray was reviewed.. Remote history of pulmonary embolism Obstructive sleep apnea maintained on CPAP therapy Hyperlipidemia Impaired hearing Osteoarthritis Hiatal hernia Plan Wean down FiO2 as tolerated to maintain saturation above 90%, currently on 2 L Chest x-ray reviewed Keep the chest tubes in place Hemodynamically stable Monitor output from the chest tubes After nitroglycerin and clevidipine drip Started metoprolol 12.5 mg p.o. twice daily Continue insulin drip for blood sugar control Monitor the white cell count Incentive spirometer Activity and mobility Critical care evaluation was done and 35 minutes Time with Patient: Greater than 30
[2024-11-05 14:25] LABS: Glucose,Whole Blood 138 mg/dL (70-110)
[2024-11-05 15:11] LABS: Glucose,Whole Blood 133 mg/dL (70-110)
[2024-11-05 15:12] VITALS: BMI 29.1
[2024-11-05 17:00] LABS: Glucose,Whole Blood 120 mg/dL (70-110)
[2024-11-05 19:07] LABS: Glucose,Whole Blood 189 mg/dL (70-110)
--- NOTE | 2024-11-05 20:44 | CONS ---
CONSULTATION HISTORY OF PRESENT ILLNESS: Channing is a 69-year-old gentleman, who has severe aortic stenosis secondary to bicuspid aortic valve and underwent aortic valve replacement yesterday. Today is postop day #1. He also underwent left atrial appendage ligation. Other than pain at the incision site, the patient is doing very well. He remains in sinus rhythm, extubated, hemodynamically stable. PAST MEDICAL HISTORY: Significant for hypertension, dyslipidemia, and aortic stenosis. MEDICATIONS: At home included: 1. Coreg 3.125 b.i.d. 2. Lasix 20 mg. 3. Lipitor 40. 4. Aspirin 81. ALLERGIES: To [place]. FAMILY HISTORY: Negative for premature coronary artery disease. SOCIAL HISTORY: Negative for current smoking, EtOH abuse, or drug abuse. REVIEW OF SYSTEMS: 14 out of 14 review of systems has been performed. Pertinent are as documented. PHYSICAL EXAMINATION: GENERAL: The patient is comfortable at rest. VITAL SIGNS: Stable. CHEST: Reveals good air entry bilaterally. I do not hear any crackles or rhonchi. HEART: Reveals first and second heart sounds. No gallop. ABDOMEN: Soft. EXTREMITIES: Did not reveal any edema. Peripheral pulses are palpable. LABORATORY DATA: Shows a hemoglobin of 11.1, platelet count is 188. Potassium is 4, creatinine is 0.7. White cell count is 20. ASSESSMENT AND PLAN: Severe symptomatic aortic stenosis secondary to bicuspid aortic valve, status post aortic valve replacement. The patient is doing well. He will continue incentive spirometry. Increase his activities. MMODL / IJN: [id number] /
[2024-11-05 20:49] LABS: Glucose,Whole Blood 107 mg/dL (70-110)
[2024-11-05 22:00] LABS: Glucose,Whole Blood 113 mg/dL (70-110)
[2024-11-05 23:52] LABS: Glucose,Whole Blood 133 mg/dL (70-110)
[2024-11-06 00:52] LABS: Glucose,Whole Blood 135 mg/dL (70-110)
[2024-11-06 03:05] LABS: Glucose,Whole Blood 125 mg/dL (70-110)
[2024-11-06 03:53] LABS: Glucose,Whole Blood 123 mg/dL (70-110)
[2024-11-06 04:04] LABS: Basophils % (A) 0 %; Eosinophils # (A) 0.1 k/uL (0-0.7); Eosinophils % (A) 0 %; HCT 30.8 % (39.0-53.0); Lymphocytes # (A) 2.2 k/uL (1.0-4.8); Lymphocytes % (A) 10 %; MCH 30.9 pg (25.0-35.0); MCHC 32.4 g/dL (31.0-37.0); MCV 95.5 fL (80.0-100.0); Mean Platelet Volume 8.5; Monocytes # (A) 1.7 k/uL (0-1.0); Monocytes % (A) 8 %; Neutrophils # (A) 17.2 k/uL (1.3-7.7); Neutrophils % (A) 80 %; Platelet Count 149 k/uL (150-450); RBC 3.22 m/uL (4.30-5.90); RDW 13.4 % (11.5-15.5); WBC 21.6 k/uL (3.8-10.6)
[2024-11-06 04:06] LABS: Ionized Calcium 4.6 mg/dL (4.5-5.3)
[2024-11-06 04:14] LABS: ALT 14 U/L (4-49); AST 33 U/L (17-59); African American GFR (CKD) >90 (>60 ml/min/1.73 sqM); Alkaline Phosphatase 42 U/L (38-126); Anion Gap 5 mmol/L; Blood Urea Nitrogen 14 mg/dL (9-20); Calcium 8.2 mg/dL (8.4-10.2); Carbon Dioxide 25 mmol/L (22-30); Chloride 104 mmol/L (98-107); Glucose 116 mg/dL (74-99); Non-African American GFR(CKD) >90 (>60 ml/min/1.73 sqM); Potassium 4.1 mmol/L (3.5-5.1); Sodium 134 mmol/L (137-145); Total Bilirubin 1.1 mg/dL (0.2-1.3); Total Protein 5.4 g/dL (6.3-8.2)
[2024-11-06 06:11] LABS: Glucose,Whole Blood 128 mg/dL (70-110)
[2024-11-06] MEDS: PANTOPRAZOLE 40 MG TABLET PO SCH (06:29)
[2024-11-06 06:52] LABS: Glucose,Whole Blood 124 mg/dL (70-110)
[2024-11-06] MEDS ORDERED: fentaNYL (PF) 50 MCG/ML 2 ML AMP IVP PRN (07:04)
--- NOTE | 2024-11-06 07:56 | XR ---
EXAMINATION TYPE: XR chest 1V portable DATE OF EXAM: 11/06/2024 4:32 AM COMPARISON: Multiple radiographs, with the most recent on 11/05/2024 TECHNIQUE: XR chest 1V portable Portable AP radiograph of the chest. CLINICAL INDICATION:Male, 69 years old with history of Post Operative Cardiac Surgery; FINDINGS: Lungs/Pleura: There is no evidence of pleural effusion or pneumothorax. Right midlung linear atelecta sis. Pulmonary vascularity: Central pulmonary vascular congestion. Heart/mediastinum: Cardiomediastinal silhouette is enlarged and stable. Postsurgical changes from TA VR. Left atrial appendage occlusion devices present. Musculoskeletal: No acute osseous pathology. Midline sternotomy wires are noted and stable. Other findings: None Lines/Tubes: Interval removal of [place]ay catheter. Stable left chest tube. Stable mediastinal drain. IMPRESSION: 1. Post cardiac surgery with similar central vascular congestion and cardiomegaly. No pneumothorax. 2. Interval removal of [place]ay catheter. [facility], , 11/06/2024 7:54 AM
[2024-11-06] MEDS ORDERED: HYDROmorphone 1 MG/ML 1 ML SYRINGE IVP PRN (07:57)
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
[2024-11-06] MEDS: INSULIN LISPRO (HumaLOG) 100 UNIT/ML 10 mL VL SQ SCH (09:01)
[2024-11-06] MEDS: METOPROLOL TARTRATE 25 MG TAB PO SCH (09:07)
--- NOTE | 2024-11-06 10:23 | P.PN ---
Subjective Progress Note Date: 11/06/24 Subjective: Patient seen and examined at bedside. No acute events overnight. Oral intake is improved. Pertinent positives and negatives as discussed above, a complete review of systems was performed and all other systems are negative. Vitals Signs Reviewed. General: nontoxic, no distress, appears at stated age, Mehta catheter and chest tube in place Derm: warm, dry, heart hugger in place Head: atraumatic, normocephalic, symmetric Eyes: EOMI, no lid lag, anicteric sclera, pupils equal round reactive to light ENT: Nose and ears atraumatic Neck: No thyromegaly, supple Mouth: no lip lesion, mucus membranes moist Cardiovascular: S1S2 reg, no murmur, no edema Lungs: clear to auscultation bilateral, no rhonchi, no rales, no wheeze, no accessory muscle use Abdominal: soft, nontender to palpation, no guarding, no appreciable organomegaly Ext: no gross muscle atrophy, muscle strength muscle strength 5 out of 5 in all 4 extremities, no contractures Neuro: CN II-XII grossly intact Psych: Alert, oriented, appropriate affect Data Reviewed Today: Pertinent Labs: WBC 21.6, hemoglobin 10, creatinine 0.65, blood sugars range between 1 23-1 28 Imaging: Chest x-ray independently interpreted, persistent bilateral interstitial opacities. Assessment and Plan: Severe aortic stenosis status post bioprosthetic aortic valve replacement Leukocytosis, reactive, anticipated outcome of surgery Mild blood loss anemia, anticipated outcome of surgery -On aspirin 325 daily, atorvastatin 40 daily, Plavix 75 daily, metoprolol 25 twice daily -Pain control, bowel regimen per CT surgery -CT surgery note reviewed, management as above, chest tube left-sided to be removed tomorrow, to voiding trial Hyperglycemia Prediabetes, A1c 5.9 -Discontinue insulin drip, started on lispro sliding scale Q ACHS, monitor for hypoglycemia Thank you for allowing us to participate in the care of this pleasant patient. Do not hesitate to contact us with questions. Someone can be reached from the [facility] hospitalist group all hours of the day at [phone] or via perfect serve. Objective - Vital Signs Vital signs: Vital Signs Temp 99.3 F 11/06/24 08:00 Pulse 81 11/06/24 09:00 Resp 20 11/06/24 09:00 BP 117/65 03/16/25 09:00 Pulse Ox 93 L 11/06/24 08:00 FiO2 60 11/04/24 16:30 Intake & Output 11/05/24 11/06/24 11/06/24 18:59 06:59 18:59 Intake Total 709.329 475.912 276 Output Total 1015 1070 250 Balance -305.671 -594.088 26 Weight 89.6 kg 90.2 kg Intake: IV 552 468 36 0.9ns pressure bag 72 78 6 Sodium Chloride 0.9% 1, 430 390 30 000 ml @ 30 mls/hr IV . Q24H RENE Rx#:[id number] ceFAZolin 2 gm In Sodium 50 Chloride 0.9% 50 ml @ 100 mls/hr IVPB Q8HR RENE Rx# :[id number] Intake, IV Titration 37.329 7.912 Amount Insulin Regular 100 unit 37.329 7.912 In Sodium Chloride 0.9% 100 ml @ Per Protocol IV .Q0M RENE Rx#:[id number] Oral 120 240 Output: Chest Tube Drainage 230 180 Chest Tube Mediastinal 140 70 Pleural Catheter Left 90 110 Urine 785 890 250 Other: Voiding Method Indwelling Catheter Indwelling Catheter Indwelling Catheter ABP, PAP, CO, CI - Last Documented Arterial Blood Pressure 163/58 Pulmonary Artery Pressure 17/6 Cardiac Output 8.2 Cardiac Index 3.8 - Labs CBC & Chem 7: 11/06/24 03:57 11/06/24 03:57 Labs: Abnormal Lab Results - Last 24 Hours (Table) 11/05/24 11/05/24 11/05/24 Range/Units 10:48 12:07 14:25 WBC (3.8-10.6) k/uL RBC (4.30-5.90) m/uL Hgb (13.0-17.5) gm/dL Hct (39.0-53.0) % Plt Count (150-450) k/uL Neutrophils # (1.3-7.7) k/uL Monocytes # (0-1.0) k/uL Sodium (137-145) mmol/L Creatinine (0.66-1.25) mg/dL Glucose (74-99) mg/dL POC Glucose (mg/dL) 127 H 136 H 138 H (70-110) mg/dL Calcium (8.4-10.2) mg/dL Total Protein (6.3-8.2) g/dL Albumin (3.5-5.0) g/dL 11/05/24 11/05/24 11/05/24 Range/Units 15:09 16:59 19:06 WBC (3.8-10.6) k/uL RBC (4.30-5.90) m/uL Hgb (13.0-17.5) gm/dL Hct (39.0-53.0) % Plt Count (150-450) k/uL Neutrophils # (1.3-7.7) k/uL Monocytes # (0-1.0) k/uL Sodium (137-145) mmol/L Creatinine (0.66-1.25) mg/dL Glucose (74-99) mg/dL POC Glucose (mg/dL) 133 H 120 H 189 H (70-110) mg/dL Calcium (8.4-10.2) mg/dL Total Protein (6.3-8.2) g/dL Albumin (3.5-5.0) g/dL 11/05/24 11/05/24 11/06/24 Range/Units 21:58 23:50 00:51 WBC (3.8-10.6) k/uL RBC (4.30-5.90) m/uL Hgb (13.0-17.5) gm/dL Hct (39.0-53.0) % Plt Count (150-450) k/uL Neutrophils # (1.3-7.7) k/uL Monocytes # (0-1.0) k/uL Sodium (137-145) mmol/L Creatinine (0.66-1.25) mg/dL Glucose (74-99) mg/dL POC Glucose (mg/dL) 113 H 133 H 135 H (70-110) mg/dL Calcium (8.4-10.2) mg/dL Total Protein (6.3-8.2) g/dL Albumin (3.5-5.0) g/dL 11/06/24 11/06/24 11/06/24 Range/Units 03:04 03:50 03:57 WBC 21.6 H (3.8-10.6) k/uL RBC 3.22 L (4.30-5.90) m/uL Hgb 10.0 L (13.0-17.5) gm/dL Hct 30.8 L (39.0-53.0) % Plt Count 149 L (150-450) k/uL Neutrophils # 17.2 H (1.3-7.7) k/uL Monocytes # 1.7 H (0-1.0) k/uL Sodium (137-145) mmol/L Creatinine (0.66-1.25) mg/dL Glucose (74-99) mg/dL POC Glucose (mg/dL) 125 H 123 H (70-110) mg/dL Calcium (8.4-10.2) mg/dL Total Protein (6.3-8.2) g/dL Albumin (3.5-5.0) g/dL 11/06/24 11/06/24 11/06/24 Range/Units 03:57 06:10 06:51 WBC (3.8-10.6) k/uL RBC (4.30-5.90) m/uL Hgb (13.0-17.5) gm/dL Hct (39.0-53.0) % Plt Count (150-450) k/uL Neutrophils # (1.3-7.7) k/uL Monocytes # (0-1.0) k/uL Sodium 134 L (137-145) mmol/L Creatinine 0.65 L (0.66-1.25) mg/dL Glucose 116 H (74-99) mg/dL POC Glucose (mg/dL) 128 H 124 H (70-110) mg/dL Calcium 8.2 L (8.4-10.2) mg/dL Total Protein 5.4 L (6.3-8.2) g/dL Albumin 3.0 L (3.5-5.0) g/dL
[2024-11-06 11:11] LABS: Glucose,Whole Blood 118 mg/dL (70-110)
--- NOTE | 2024-11-06 13:04 | P.PN ---
Subjective Progress Note Date: 11/06/24 This is a 69-year-old male patient brought into the intensive care unit following cardiac surgery. Patient has severe calcified aortic stenosis and the patient underwent aortic valve replacement/bovine pericardial valve with ligation of the left atrial appendage. Patient was kept intubated on mechanical ventilator and the patient was brought into the intensive care unit. Currently, the patient is sedated on propofol which is running at 30 mcg/kg/min. The patient is on assist-control mode of mechanical ventilation. Initial blood. Noted that showed a pH of 7.31 and the patient's pCO2 is 55 and a pO2 of 134. Based on that, the patient was A rate of 2012 mechanical ventilator with a tidal volume of 500, FiO2 was up to 60% with a PEEP is currently at 8. Cardiac output is at 8.2 with an index of 3.8. Blood pressure is elevated and the patient is currently on nitroglycerin drip at 5 mcg/kg/min and Cleviprex drip at 6 mg an hour. The patient has mediastinal and left pleural chest tube. Output is minimal and the chest tube showing no evidence of any air leak. Chest x-ray was noted. The patient is holding his catheter in place. The patient has an orogastric and orotracheal tube both in place. There is some mild pulm vascular congestion. No other acute abnormalities. No evidence of any pneumothorax. Cardiac rhythm is sinus bradycardia and the patient is currently paced at a rate of 80. The white cell count of 22, hemoglobin 11.2 and a platelet count of 194. BUN is 40 with a creatinine of 0.8. Sodium levels at 138 and a potassium level is at 4.4. LFTs are normal. Patient was also started on insulin drip for blood sugar control. Producing adequate amount of urine output. Calm and comfortable. On 11/05/2024, the patient is being seen for a follow-up. The patient is postop day #1. The patient was weaned off the mechanical ventilator and the patient was extubated yesterday without any major difficulties. This morning, he is awake and alert and calm and comfortable and he is on oxygen 2 L/min nasal cannula. Using the incentive spirometer. The cardiac output is at 8.2 with an index of 3.8. CVP is at 8. PA pressures of 25/15. The patient is off nitrogly cerin drip. The patient is off clevidipine drip. Cardiac rhythm is sinus and the patient has a backup pacing at rate of 50. No other significant issues or complaints for now. The white cell count of 20 with a hemoglobin of 11.1 and a platelet count of 188. Sodium levels at 135, the BUN is 14 with a creatinine of 0.7 and a potassium level is at 4.0. Chest x-ray findings are essentially stable consistent with postop changes. The patient has a mediastinal left pleural chest tube and he has cardiomegaly and mild pulm vessel congestion and atelectatic changes in the left lung base. On today's evaluation of 11/06/2024, the patient is on room air oxygen. The patient is calm and comfortable. Cardiac rhythm is sinus and the patient is currently on metoprolol 25 mg twice a day. No respiratory difficulties. The patient is post aortic valve replacement. Mediastinal chest tube is removed and the patient has a left pleural chest tube in place. Remains on aspirin. Remains on Lipitor. Remains on metoprolol 25 mg p.o. twice a day. [place] for pain control. Chest x-ray from today shows no significant abnormalities. The patient continues to have postcardiac surgery changes with some central pulmonary vascular congestion and cardiomegaly. The Robert Lee-Vijay catheter has been removed. The white cell count is 21, hemoglobin 10 and platelet count of 149. BUN is 14 with a creatinine of 0.6. The patient is ambulating. The patient is awake and alert. The patient is postop day #2. Objective - Vital Signs Vital signs: Vital Signs Temp 98.1 F 11/06/24 04:00 Pulse 87 11/06/24 07:00 Resp 21 11/06/24 07:00 BP 126/68 11/06/24 07:00 Pulse Ox 91 L 11/06/24 07:00 FiO2 60 11/04/24 16:30 Intake & Output 11/05/24 11/06/24 11/06/24 18:59 06:59 18:59 Intake Total 709.329 475.912 Output Total 1015 1070 Balance -305.671 -594.088 Weight 89.6 kg 90.2 kg Intake: IV 552 468 0.9ns pressure bag 72 78 Sodium Chloride 0.9% 1, 430 390 000 ml @ 30 mls/hr IV . Q24H RENE Rx#:[id number] ceFAZolin 2 gm In Sodium 50 Chloride 0.9% 50 ml @ 100 mls/hr IVPB Q8HR RENE Rx# :[id number] Intake, IV Titration 37.329 7.912 Amount Insulin Regular 100 unit 37.329 7.912 In Sodium Chloride 0.9% 100 ml @ Per Protocol IV .Q0M RENE Rx#:[id number] Oral 120 Output: Chest Tube Drainage 230 180 Chest Tube Mediastinal 140 70 Pleural Catheter Left 90 110 Urine 785 890 Other: Voiding Method Indwelling Catheter Indwelling Catheter ABP, PAP, CO, CI - Last Documented Arterial Blood Pressure 163/58 Pulmonary Artery Pressure 17/6 Cardiac Output 8.2 Cardiac Index 3.8 - Exam CONSTITUTIONAL: Appears somewhat comfortable, cooperative, no acute distress RESPIRATORY: Lungs sounds diminished bilaterally. Respirations even, nonlabored. Currently on 2 L nasal cannula with oxygen saturation 95%. Able to achieve 1250 mL on incentive spirometry. Strong cough. CARDIOVASCULAR: S1, S2 present. Regular rate and rhythm, sinus rhythm on telemetry. Sternum stable. Palpable peripheral pulses bilaterally. No edema present. No calf pain or tenderness noted. Heart hugger in place with patient demonstrating appropriate use. Antiembolism stockings, SCDs present. GASTROINTESTINAL: Abdomen soft, nontender, nondistended. Active bowel sounds present 4 quadrants. Tolerating minimal diet. Positive flatus GENITOURINARY: Mehta present draining clear, yellow urine. Output overnight 50-100 mL per hour, 1600 mL in the last 24 hours INTEGUMENTARY: Skin is warm and dry with evidence of good perfusion. Anterior chest incision well approximated and covered with dry intact dressing NEUROLOGIC: Cranial nerves II through XII intact MUSKULOSKELETAL: Able to move all extremities, strength equal bilaterally, gait normal PSYCHIATRIC: Alert and oriented to person place and time, appropriate affect, intact judgment and insight INVASIVE LINES AND TUBES: Mediastinal/left pleural chest tubes present and connected to wall suction, no air leaks present. Mediastinal tube with 70 mL serosanguineous drainage overnight, 200 mL in the last 24 hours. Left pleural chest tube with 100 mL serosanguineous drainage overnight, 200 mL in the last 24 hours. A/V epicardial pacemaker wires present, grounded. Right internal jugular cordis, right radial arterial line present. Last CVP 4. - Labs CBC & Chem 7: 11/06/24 03:57 11/06/24 03:57 Labs: Abnormal Lab Results - Last 24 Hours (Table) 11/05/24 11/05/24 11/05/24 Range/Units 10:48 12:07 14:25 WBC (3.8-10.6) k/uL RBC (4.30-5.90) m/uL Hgb (13.0-17.5) gm/dL Hct (39.0-53.0) % Plt Count (150-450) k/uL Neutrophils # (1.3-7.7) k/uL Monocytes # (0-1.0) k/uL Sodium (137-145) mmol/L Creatinine (0.66-1.25) mg/dL Glucose (74-99) mg/dL POC Glucose (mg/dL) 127 H 136 H 138 H (70-110) mg/dL Calcium (8.4-10.2) mg/dL Total Protein (6.3-8.2) g/dL Albumin (3.5-5.0) g/dL 11/05/24 11/05/24 11/05/24 Range/Units 15:09 16:59 19:06 WBC (3.8-10.6) k/uL RBC (4.30-5.90) m/uL Hgb (13.0-17.5) gm/dL Hct (39.0-53.0) % Plt Count (150-450) k/uL Neutrophils # (1.3-7.7) k/uL Monocytes # (0-1.0) k/uL Sodium (137-145) mmol/L Creatinine (0.66-1.25) mg/dL Glucose (74-99) mg/dL POC Glucose (mg/dL) 133 H 120 H 189 H (70-110) mg/dL Calcium (8.4-10.2) mg/dL Total Protein (6.3-8.2) g/dL Albumin (3.5-5.0) g/dL 11/05/24 11/05/24 11/06/24 Range/Units 21:58 23:50 00:51 WBC (3.8-10.6) k/uL RBC (4.30-5.90) m/uL Hgb (13.0-17.5) gm/dL Hct (39.0-53.0) % Plt Count (150-450) k/uL Neutrophils # (1.3-7.7) k/uL Monocytes # (0-1.0) k/uL Sodium (137-145) mmol/L Creatinine (0.66-1.25) mg/dL Glucose (74-99) mg/dL POC Glucose (mg/dL) 113 H 133 H 135 H (70-110) mg/dL Calcium (8.4-10.2) mg/dL Total Protein (6.3-8.2) g/dL Albumin (3.5-5.0) g/dL 11/06/24 11/06/24 11/06/24 Range/Units 03:04 03:50 03:57 WBC 21.6 H (3.8-10.6) k/uL RBC 3.22 L (4.30-5.90) m/uL Hgb 10.0 L (13.0-17.5) gm/dL Hct 30.8 L (39.0-53.0) % Plt Count 149 L (150-450) k/uL Neutrophils # 17.2 H (1.3-7.7) k/uL Monocytes # 1.7 H (0-1.0) k/uL Sodium (137-145) mmol/L Creatinine (0.66-1.25) mg/dL Glucose (74-99) mg/dL POC Glucose (mg/dL) 125 H 123 H (70-110) mg/dL Calcium (8.4-10.2) mg/dL Total Protein (6.3-8.2) g/dL Albumin (3.5-5.0) g/dL 11/06/24 11/06/24 11/06/24 Range/Units 03:57 06:10 06:51 WBC (3.8-10.6) k/uL RBC (4.30-5.90) m/uL Hgb (13.0-17.5) gm/dL Hct (39.0-53.0) % Plt Count (150-450) k/uL Neutrophils # (1.3-7.7) k/uL Monocytes # (0-1.0) k/uL Sodium 134 L (137-145) mmol/L Creatinine 0.65 L (0.66-1.25) mg/dL Glucose 116 H (74-99) mg/dL POC Glucose (mg/dL) 128 H 124 H (70-110) mg/dL Calcium 8.2 L (8.4-10.2) mg/dL Total Protein 5.4 L (6.3-8.2) g/dL Albumin 3.0 L (3.5-5.0) g/dL Assessment and Plan Plan: Aortic valve replacement for severe aortic stenosis. The patient is currently postop day # 2.. Hemodynamically stable. The patient's cardiac rhythm is sinus. Postthoracotomy, extubated and the patient is currently on room air oxygen. Mediastinal chest tubes were removed and the patient continues to have a left pleural chest tube in place. Remote history of pulmonary embolism Obstructive sleep apnea maintained on CPAP therapy Hyperlipidemia Impaired hearing Osteoarthritis Hiatal hernia Plan Patient currently on room air oxygen Chest x-ray reviewed Keep the chest tubes in place Hemodynamically stable Monitor output from the chest tubes Continue metoprolol 25 mg p.o. twice daily Insulin drip has been discontinued and the patient is currently on sign scale insulin coverage Monitor the white cell count Incentive spirometer Activity and mobility Critical care evaluation was done and 31 minutes Time with Patient: Greater than 30
[2024-11-06 16:31] LABS: Glucose,Whole Blood 135 mg/dL (70-110)
--- NOTE | 2024-11-06 16:40 | PN ---
PROGRESS NOTE SUBJECTIVE: Channing is a 69-year-old gentleman, who is admitted to ICU, following aortic valve replacement. Today is postop day #2. He has history of bicuspid aortic valve. The patient is doing much better. He is ambulating, still has chest tubes in place. PHYSICAL EXAMINATION: VITAL SIGNS: Heart rate is 80 beats per minute, blood pressure is 117/65, respiratory rate 18, O2 saturation is 93% on room air. NECK: There is no jugular venous distention. Carotid upstroke is normal. There is no bruit. CHEST: Reveals good air entry bilaterally. HEART: Reveals first and second heart sounds. No gallop. ABDOMEN: Soft. EXTREMITIES: Did not reveal any edema. Peripheral pulses are felt. LABORATORY DATA: Show a hemoglobin of 10, platelet count is 149, potassium is 4.1, creatinine is 0.6. ASSESSMENT AND PLAN: Bicuspid aortic valve, status post aortic valve replacement. The patient is doing well, remains in sinus rhythm, stable hemodynamically. We will continue current supportive care. MMODL / IJN: [id number] /
[2024-11-07 04:53] LABS: Basophils # (A) 0.1 k/uL (0-0.2); Basophils % (A) 0 %; Eosinophils # (A) 0.2 k/uL (0-0.7); Eosinophils % (A) 1 %; HCT 29.6 % (39.0-53.0); HGB 9.6 gm/dL (13.0-17.5); Lymphocytes # (A) 2.5 k/uL (1.0-4.8); Lymphocytes % (A) 13 %; MCHC 32.3 g/dL (31.0-37.0); Mean Platelet Volume 8.9; Monocytes # (A) 0.8 k/uL (0-1.0); Monocytes % (A) 4 %; Neutrophils # (A) 15.3 k/uL (1.3-7.7); Neutrophils % (A) 79 %; Platelet Count 141 k/uL (150-450); RBC 3.08 m/uL (4.30-5.90); RDW 13.3 % (11.5-15.5); WBC 19.5 k/uL (3.8-10.6)
[2024-11-07 05:19] LABS: ALT 13 U/L (4-49); AST 24 U/L (17-59); African American GFR (CKD) >90 (>60 ml/min/1.73 sqM); Albumin 2.9 g/dL (3.5-5.0); Alkaline Phosphatase 48 U/L (38-126); Anion Gap 6 mmol/L; Blood Urea Nitrogen 18 mg/dL (9-20); Calcium 8.5 mg/dL (8.4-10.2); Carbon Dioxide 26 mmol/L (22-30); Chloride 102 mmol/L (98-107); Glucose 101 mg/dL (74-99); Non-African American GFR(CKD) >90 (>60 ml/min/1.73 sqM); Potassium 3.7 mmol/L (3.5-5.1); Sodium 134 mmol/L (137-145); Total Bilirubin 0.7 mg/dL (0.2-1.3); Total Protein 5.2 g/dL (6.3-8.2)
[2024-11-07] MEDS: POTASSIUM CHLORIDE ER 20 MEQ TAB.ER PO SCH (05:56)
--- NOTE | 2024-11-07 07:12 | XR ---
EXAMINATION TYPE: XR chest 1V portable DATE OF EXAM: 11/07/2024 4:24 AM COMPARISON: Chest radiographs from 11/06/2024 CLINICAL INDICATION: Male, 69 years old with history of Post open heart; TECHNIQUE: XR chest 1V portable Frontal view of the chest. FINDINGS: Lungs/Pleura: There is no evidence of pleural effusion, focal consolidation, or pneumothorax. Pulmonary vascularity: Pulmonary vascular congestion. Heart/mediastinum: Cardiomediastinal silhouette is enlarged and stable. Left atrial appendage occlusi on device is present. Musculoskeletal: No acute osseous pathology. Other findings: None IMPRESSION: Cardiomegaly and mild pulmonary vascular congestion. Correlate with BNP for congestive heart failure. [facility], , 11/07/2024 7:10 AM
[2024-11-07] MEDS: LOSARTAN 25 MG TAB PO SCH (09:29)
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
[2024-11-07 11:52] LABS: Glucose,Whole Blood 129 mg/dL (70-110)
[2024-11-07] MEDS: MANNITOL 25% 12.5 GM/50 ML VIAL IV ONE (12:12)
[2024-11-07] MEDS: CALCIUM CHLORIDE 100 MG/ML 10 ML SYRINGE IV ONE (12:12)
[2024-11-07] MEDS: ASPIRIN 325 MG TAB PO ONE (12:12)
[2024-11-07] MEDS: CHLORHEXIDINE GLUCONATE 15 ML CUP MUCOUS MEM ONE (12:12)
[2024-11-07] MEDS: HEPARIN SODIUM 1,000 UN/ML (10ML VL) IV ONE (12:12)
[2024-11-07] MEDS: NITROGLYCERIN SL TABS 0.4 MG TAB SUBLINGUAL ONE (12:13)
[2024-11-07] MEDS: PHENYLEPHRINE 10 MG/ML VIAL IV ONE (12:13)
[2024-11-07] MEDS: NITROGLYCERIN-D5W PMX 25 MG/250 ML BTL IV ONE (12:13)
[2024-11-07] MEDS: SODIUM BICARB 8.4% 50 ML SYR (1 MEQ/ML) IV ONE (12:14)
[2024-11-07] MEDS: PROTAMINE SULFATE 10 MG/ML 25 ML VIAL IV ONE (12:14)
--- NOTE | 2024-11-07 12:25 | P.PN ---
Subjective Progress Note Date: 11/07/24 Subjective: Patient seen and examined at bedside. No acute events overnight. Oral intake is improved. Pertinent positives and negatives as discussed above, a complete review of systems was performed and all other systems are negative. Vitals Signs Reviewed. General: nontoxic, no distress, appears at stated age, Mehta catheter in place Derm: warm, dry, heart hugger in place Head: atraumatic, normocephalic, symmetric Eyes: EOMI, no lid lag, anicteric sclera, pupils equal round reactive to light ENT: Nose and ears atraumatic Neck: No thyromegaly, supple Mouth: no lip lesion, mucus membranes moist Cardiovascular: S1S2 reg, no murmur, no edema Lungs: clear to auscultation bilateral, no rhonchi, no rales, no wheeze, no accessory muscle use Abdominal: soft, nontender to palpation, no guarding, no appreciable organomegaly Ext: no gross muscle atrophy, muscle strength muscle strength 5 out of 5 in all 4 extremities, no contractures Neuro: CN II-XII grossly intact Psych: Alert, oriented, appropriate affect Data Reviewed Today: Pertinent Labs: WBC 19.5, hemoglobin 9.6, creatinine 0.81, blood glucose range between 10 1-1 35 Imaging: Chest x-ray independently interpreted, persistent bilateral interstitial opacities. Assessment and Plan: Severe aortic stenosis status post bioprosthetic aortic valve replacement Leukocytosis, reactive, anticipated outcome of surgery Mild blood loss anemia, anticipated outcome of surgery -On aspirin 325 daily, atorvastatin 40 daily, Plavix 75 daily, metoprolol 25 twice daily -Pain control, bowel regimen per CT surgery -CT surgery note reviewed, management as above, do a voiding trial today, likely discharge in the next 24 to 48 hours Hyperglycemia Prediabetes, A1c 5.9 -Continue lispro sliding scale Q ACHS, monitor for hypoglycemia Thank you for allowing us to participate in the care of this pleasant patient. Do not hesitate to contact us with questions. Someone can be reached from the [facility] hospitalist group all hours of the day at [phone] or via perfect serve. Objective - Vital Signs Vital signs: Vital Signs Temp 98.7 F 11/07/24 05:00 Pulse 63 11/07/24 11:00 Resp 16 11/07/24 11:00 BP 122/66 11/07/24 11:00 Pulse Ox 94 L 11/07/24 08:00 FiO2 60 11/04/24 16:30 Intake & Output 11/06/24 11/07/24 11/07/24 18:59 06:59 18:59 Intake Total 886 360 Output Total 945 600 600 Balance -59 -600 -240 Intake: IV 36 0.9ns pressure bag 6 Sodium Chloride 0.9% 1, 30 000 ml @ 30 mls/hr IV . Q24H [facility] Rx#:[id number] Oral 850 360 Output: Chest Tube Drainage 20 Chest Tube Mediastinal 0 Pleural Catheter Left 20 Urine 925 600 600 Other: Voiding Method Indwelling Catheter Indwelling Catheter Indwelling Catheter ABP, PAP, CO, CI - Last Documented Arterial Blood Pressure 163/58 Pulmonary Artery Pressure 17/6 Cardiac Output 8.2 Cardiac Index 3.8 - Labs CBC & Chem 7: 11/07/24 04:24 11/07/24 04:24 Labs: Abnormal Lab Results - Last 24 Hours (Table) 11/06/24 11/07/24 11/07/24 Range/Units 16:30 04:24 04:24 WBC 19.5 H (3.8-10.6) k/uL RBC 3.08 L (4.30-5.90) m/uL Hgb 9.6 L (13.0-17.5) gm/dL Hct 29.6 L (39.0-53.0) % Plt Count 141 L (150-450) k/uL Neutrophils # 15.3 H (1.3-7.7) k/uL Sodium 134 L (137-145) mmol/L Glucose 101 H (74-99) mg/dL POC Glucose (mg/dL) 135 H (70-110) mg/dL Total Protein 5.2 L (6.3-8.2) g/dL Albumin 2.9 L (3.5-5.0) g/dL 11/07/24 Range/Units 11:51 WBC (3.8-10.6) k/uL RBC (4.30-5.90) m/uL Hgb (13.0-17.5) gm/dL Hct (39.0-53.0) % Plt Count (150-450) k/uL Neutrophils # (1.3-7.7) k/uL Sodium (137-145) mmol/L Glucose (74-99) mg/dL POC Glucose (mg/dL) 129 H (70-110) mg/dL Total Protein (6.3-8.2) g/dL Albumin (3.5-5.0) g/dL
--- NOTE | 2024-11-07 12:47 | P.PN ---
Subjective Progress Note Date: 11/07/24 The patient is a 69-year-old male who underwent elective bioprosthetic aortic valve replacement. Today is postop day 4 and patient has done well. Patient is up ambulating around his room and getting more active. He will be downgraded to step-down. No chest pain or pressure. No trouble breathing. No dizziness or lightheadedness. GENERAL: Well-appearing, well-nourished and in no acute distress. NECK: Supple without JVD or thyromegaly. LUNGS: Breath sounds clear to auscultation bilaterally. Respiration equal and unlabored. No wheezes, rales or rhonchi. HEART: Regular rate and rhythm without murmurs, rubs or gallops. S1 and S2 heard. EXTREMITIES: Normal range of motion, no edema. No clubbing or cyanosis. Peripheral pulses intact and strong. TELEMETRY: Sinus rhythm overnight LABS: WBC 19.5, hemoglobin 9.6, hematocrit 29.6, platelet 141, sodium 134, potassium 3.7, BUN 18, creatinine 0.81, AST 24, ALT 13 IMPRESSION: Severe aortic stenosis Status post aortic valve replacement Sleep apnea History of PE PLAN: Continue supportive treatment Further recommendations to be based upon clinical course I am dictating on behalf of Dr Mj Adkins's history/physical and assessment/plan. Objective - Vital Signs Vital signs: Vital Signs Temp 98.7 F 11/07/24 05:00 Pulse 68 11/07/24 12:00 Resp 13 11/07/24 12:00 BP 122/66 11/07/24 11:00 Pulse Ox 94 L 11/07/24 08:00 FiO2 60 11/04/24 16:30 Intake & Output 11/06/24 11/07/24 11/07/24 18:59 06:59 18:59 Intake Total 886 360 Output Total 945 600 600 Balance -59 -600 -240 Intake: IV 36 0.9ns pressure bag 6 Sodium Chloride 0.9% 1, 30 000 ml @ 30 mls/hr IV . Q24H [facility] Rx#:[id number] Oral 850 360 Output: Chest Tube Drainage 20 Chest Tube Mediastinal 0 Pleural Catheter Left 20 Urine 925 600 600 Other: Voiding Method Indwelling Catheter Indwelling Catheter Indwelling Catheter ABP, PAP, CO, CI - Last Documented Arterial Blood Pressure 163/58 Pulmonary Artery Pressure 17/6 Cardiac Output 8.2 Cardiac Index 3.8 - Labs CBC & Chem 7: 11/07/24 04:24 11/07/24 04:24 Labs: Abnormal Lab Results - Last 24 Hours (Table) 11/06/24 11/07/24 11/07/24 Range/Units 16:30 04:24 04:24 WBC 19.5 H (3.8-10.6) k/uL RBC 3.08 L (4.30-5.90) m/uL Hgb 9.6 L (13.0-17.5) gm/dL Hct 29.6 L (39.0-53.0) % Plt Count 141 L (150-450) k/uL Neutrophils # 15.3 H (1.3-7.7) k/uL Sodium 134 L (137-145) mmol/L Glucose 101 H (74-99) mg/dL POC Glucose (mg/dL) 135 H (70-110) mg/dL Total Protein 5.2 L (6.3-8.2) g/dL Albumin 2.9 L (3.5-5.0) g/dL 11/07/24 Range/Units 11:51 WBC (3.8-10.6) k/uL RBC (4.30-5.90) m/uL Hgb (13.0-17.5) gm/dL Hct (39.0-53.0) % Plt Count (150-450) k/uL Neutrophils # (1.3-7.7) k/uL Sodium (137-145) mmol/L Glucose (74-99) mg/dL POC Glucose (mg/dL) 129 H (70-110) mg/dL Total Protein (6.3-8.2) g/dL Albumin (3.5-5.0) g/dL
--- NOTE | 2024-11-07 14:22 | P.PN ---
Subjective Progress Note Date: 11/07/24 Principal diagnosis: POD #3 aortic valve replacement with 27 mm Zamarripa Inspiris bovine pericardial valve, ligation left atrial appendage with 40 mm AtriCure clip, ESA by anesthesi a This is a 69-year-old male patient brought into the intensive care unit following cardiac surgery. Patient has severe calcified aortic stenosis and the patient underwent aortic valve replacement/bovine pericardial valve with ligation of the left atrial appendage. Patient was kept intubated on mechanical ventilator and the patient was brought into the intensive care unit. Currently, the patient is sedated on propofol which is running at 30 mcg/kg/min. The patient is on assist-control mode of mechanical ventilation. Initial blood. Noted that showed a pH of 7.31 and the patient's pCO2 is 55 and a pO2 of 134. Based on that, the patient was A rate of 2012 mechanical ventilator with a tidal volume of 500, FiO2 was up to 60% with a PEEP is currently at 8. Cardiac output is at 8.2 with an index of 3.8. Blood pressure is elevated and the patient is currently on nitroglycerin drip at 5 mcg/kg/min and Cleviprex drip at 6 mg an hour. The patient has mediastinal and left pleural chest tube. Output is minimal and the chest tube showing no evidence of any air leak. Chest x-ray was noted. The patient is holding his catheter in place. The patient has an orogastric and orotracheal tube both in place. There is some mild pulm vascular congestion. No other acute abnormalities. No evidence of any pneumothorax. Cardiac rhythm is sinus bradycardia and the patient is currently paced at a rate of 80. The white cell count of 22, hemoglobin 11.2 and a platelet count of 194. BUN is 40 with a creatinine of 0.8. Sodium levels at 138 and a potassium level is at 4.4. LFTs are normal. Patient was also started on insulin drip for blood sugar control. Producing adequate amount of urine output. Calm and comfortable. On 11/05/2024, the patient is being seen for a follow-up. The patient is postop day #1. The patient was weaned off the mechanical ventilator and the patient was extubated yesterday without any major difficulties. This morning, he is awake and alert and calm and comfortable and he is on oxygen 2 L/min nasal cannula. Using the incentive spirometer. The cardiac output is at 8.2 with an index of 3.8. CVP is at 8. PA pressures of 25/15. The patient is off nitroglycerin drip. The patient is off clevidipine drip. Cardiac rhythm is sinus and the patient has a backup pacing at rate of 50. No other significant issues or complaints for now. The white cell count of 20 with a hemoglobin of 11.1 and a platelet count of 188. Sodium levels at 135, the BUN is 14 with a creatinine of 0.7 and a potassium level is at 4.0. Chest x-ray findings are essentially stable consistent with postop changes. The patient has a mediastinal left pleural chest tube and he has cardiomegaly and mild pulm vessel congestion and atelectatic changes in the left lung base. On today's evaluation of 11/06/2024, the patient is on room air oxygen. The patient is calm and comfortable. Cardiac rhythm is sinus and the patient is currently on metoprolol 25 mg twice a day. No respiratory difficulties. The patient is post aortic valve replacement. Mediastinal chest tube is removed and the patient has a left pleural chest tube in place. Remains on aspirin. Remains on Lipitor. Remains on metoprolol 25 mg p.o. twice a day. [place] for pain control. Chest x-ray from today shows no significant abnormalities. The patient continues to have postcardiac surgery changes with some central pulmonary vascular congestion and cardiomegaly. The [place] catheter has been removed. The white cell count is 21, hemoglobin 10 and platelet count of 149. BUN is 14 with a creatinine of 0.6. The patient is ambulating. The patient is awake and alert. The patient is postop day #2. Patient was seen today on 11/07/2024, patient is now on room air, does not seem to be in any distress. Patient is achieving over 1500 cc on his incentive spirometry, his chest tubes were removed yesterday without any incident. Mehta catheter remains in place, patient is hemodynamically stable, not requiring any pressors or any inotropes. WBC count is elevated 19.5 hemoglobin 9.6 electrolyt es are normal renal profile is normal, chest x-ray showed pulmonary vascular congestion and postoperative changes Objective - Vital Signs Vital signs: Vital Signs Temp 98.7 F 11/07/24 05:00 Pulse 67 11/07/24 12:00 Resp 16 11/07/24 12:00 BP 116/60 11/07/24 12:00 Pulse Ox 96 11/07/24 12:00 FiO2 60 11/04/24 16:30 Intake & Output 11/06/24 11/07/24 11/07/24 18:59 06:59 18:59 Intake Total 886 360 Output Total 945 600 600 Balance -59 -600 -240 Weight 104.7 kg Intake: IV 36 0.9ns pressure bag 6 Sodium Chloride 0.9% 1, 30 000 ml @ 30 mls/hr IV . Q24H [facility] Rx#:[id number] Oral 850 360 Output: Chest Tube Drainage 20 Chest Tube Mediastinal 0 Pleural Catheter Left 20 Urine 925 600 600 Other: Voiding Method Indwelling Catheter Indwelling Catheter Indwelling Catheter ABP, PAP, CO, CI - Last Documented Arterial Blood Pressure 163/58 Pulmonary Artery Pressure 17/6 Cardiac Output 8.2 Cardiac Index 3.8 - Exam General: Revealed 69-year-old white male in no distress on room air. RESPIRATORY: Diminished breath sound bilaterally no rhonchi no wheezes CARDIOVASCULAR: Distant S1-S2, no S3 gallop, no murmur GASTROINTESTINAL: Soft nontender no megaly no rebound or guarding INTEGUMENTARY: Skin is warm and dry no rashes NEUROLOGIC: Alert oriented x 3 no gross focal deficit MUSKULOSKELETAL: No deformities and no limitation range of motion PSYCHIATRIC: Normal mood affect and no mental status examination INVASIVE LINES AND TUBES: A/V epicardial pacemaker wires present, grounded. - Labs CBC & Chem 7: 11/07/24 04:24 11/07/24 04:24 Labs: Abnormal Lab Results - Last 24 Hours (Table) 11/06/24 11/07/24 11/07/24 Range/Units 16:30 04:24 04:24 WBC 19.5 H (3.8-10.6) k/uL RBC 3.08 L (4.30-5.90) m/uL Hgb 9.6 L (13.0-17.5) gm/dL Hct 29.6 L (39.0-53.0) % Plt Count 141 L (150-450) k/uL Neutrophils # 15.3 H (1.3-7.7) k/uL Sodium 134 L (137-145) mmol/L Glucose 101 H (74-99) mg/dL POC Glucose (mg/dL) 135 H (70-110) mg/dL Total Protein 5.2 L (6.3-8.2) g/dL Albumin 2.9 L (3.5-5.0) g/dL 11/07/24 Range/Units 11:51 WBC (3.8-10.6) k/uL RBC (4.30-5.90) m/uL Hgb (13.0-17.5) gm/dL Hct (39.0-53.0) % Plt Count (150-450) k/uL Neutrophils # (1.3-7.7) k/uL Sodium (137-145) mmol/L Glucose (74-99) mg/dL POC Glucose (mg/dL) 129 H (70-110) mg/dL Total Protein (6.3-8.2) g/dL Albumin (3.5-5.0) g/dL Assessment and Plan Assessment: Impression: 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
[2024-11-07 16:34] LABS: Glucose,Whole Blood 108 mg/dL (70-110)
[2024-11-07 22:46] LABS: Glucose,Whole Blood 119 mg/dL (70-110)
[2024-11-08 06:05] LABS: Glucose,Whole Blood 119 mg/dL (70-110)
[2024-11-08 06:10] LABS: Basophils # (A) 0.1 k/uL (0-0.2); Basophils % (A) 0 %; Eosinophils # (A) 0.3 k/uL (0-0.7); Eosinophils % (A) 2 %; HCT 33.4 % (39.0-53.0); HGB 10.5 gm/dL (13.0-17.5); Lymphocytes # (A) 1.9 k/uL (1.0-4.8); Lymphocytes % (A) 12 %; MCH 30.3 pg (25.0-35.0); MCHC 31.4 g/dL (31.0-37.0); MCV 96.4 fL (80.0-100.0); Mean Platelet Volume 8.7; Monocytes # (A) 1.4 k/uL (0-1.0); Monocytes % (A) 9 %; Neutrophils # (A) 11.2 k/uL (1.3-7.7); Neutrophils % (A) 74 %; Platelet Count 215 k/uL (150-450); RBC 3.47 m/uL (4.30-5.90); RDW 13.3 % (11.5-15.5); WBC 15.2 k/uL (3.8-10.6)
[2024-11-08 06:26] LABS: ALT 14 U/L (4-49); AST 24 U/L (17-59); African American GFR (CKD) >90 (>60 ml/min/1.73 sqM); Albumin 3.1 g/dL (3.5-5.0); Alkaline Phosphatase 48 U/L (38-126); Anion Gap 8 mmol/L; Blood Urea Nitrogen 14 mg/dL (9-20); Calcium 8.6 mg/dL (8.4-10.2); Carbon Dioxide 24 mmol/L (22-30); Chloride 102 mmol/L (98-107); Glucose 118 mg/dL (74-99); Non-African American GFR(CKD) >90 (>60 ml/min/1.73 sqM); Sodium 134 mmol/L (137-145); Total Bilirubin 0.9 mg/dL (0.2-1.3); Total Protein 5.9 g/dL (6.3-8.2)
--- NOTE | 2024-11-08 07:39 | XR ---
EXAMINATION TYPE: XR chest 2V DATE OF EXAM: 11/08/2024 5:42 AM COMPARISON: Chest radiograph from one day prior. CLINICAL INDICATION: Male, 69 years old with history of Postop AVR; [facility] TECHNIQUE: XR chest 2V Frontal and lateral views of the chest. FINDINGS: Lungs/Pleura: There is no evidence of pleural effusion, focal consolidation, or pneumothorax. Pulmonary vascularity: Pulmonary vascular congestion. Heart/mediastinum: Cardiomediastinal silhouette is enlarged and stable. Left atrial appendage occlusi on device is present. Musculoskeletal: No acute osseous pathology. Other findings: None IMPRESSION: Cardiomegaly and mild pulmonary vascular congestion. Correlate with BNP for congestive heart failure. [facility], , 11/08/2024 7:37 AM
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
[2024-11-08] MEDS: FUROSEMIDE 10 MG/ML 2 ML VIAL IV ONE (09:49)
[2024-11-08 10:30] VITALS: BP 147/81; PULSE 78; RESP 20; TEMP 98.3
[2024-11-08] MEDS: HYDROcodone/APAP 7.5-325MG 1 EACH TAB PO PRN (11:31)
--- NOTE | 2024-11-08 11:34 | P.PN ---
Subjective Progress Note Date: 11/08/24 Subjective: Patient seen and examined at bedside. No acute events overnight. No new complaints Pertinent positives and negatives as discussed above, a complete review of systems was performed and all other systems are negative. Vitals Signs Reviewed. General: nontoxic, no distress, appears at stated age Derm: warm, dry, heart hugger in place Head: atraumatic, normocephalic, symmetric Eyes: EOMI, no lid lag, anicteric sclera, pupils equal round reactive to light ENT: Nose and ears atraumatic Neck: No thyromegaly, supple Mouth: no lip lesion, mucus membranes moist Cardiovascular: S1S2 reg, no murmur, no edema Lungs: clear to auscultation bilateral, no rhonchi, no rales, no wheeze, no accessory muscle use Abdominal: soft, nontender to palpation, no guarding, no appreciable organ omegaly Ext: no gross muscle atrophy, muscle strength muscle strength 5 out of 5 in all 4 extremities, no contractures Neuro: CN II-XII grossly intact Psych: Alert, oriented, appropriate affect Data Reviewed Today: Pertinent Labs: WBC 15.2, hemoglobin 10.5, creatinine 0.68, blood sugars range b etween 10 8-1 19 Imaging: Chest x-ray independently interpreted, persistent bilateral interstitial opacities. Assessment and Plan: Severe aortic stenosis status post bioprosthetic aortic valve replacement Leukocytosis, reactive, anticipated outcome of surgery, improving Mild blood loss anemia, anticipated outcome of surgery, improvement -On aspirin 325 daily, atorvastatin 40 daily, Plavix 75 daily, metoprolol 25 twice daily -Pain control, bowel regimen per CT surgery -CT surgery note reviewed, management as above, likely discharge today Hyperglycemia Prediabetes, A1c 5.9 -Continue lispro sliding scale Q ACHS, monitor for hypoglycemia Thank you for allowing us to participate in the care of this pleasant patient. Do not hesitate to contact us with questions. Someone can be reached from the [facility] hospitalist group all hours of the day at [phone] or via perfect serve. Objective - Vital Signs Vital signs: Vital Signs Temp 98.3 F 11/08/24 08:00 Pulse 78 11/08/24 08:00 Resp 20 11/08/24 08:00 BP 147/81 11/08/24 08:00 Pulse Ox 95 11/08/24 04:00 FiO2 60 03/14/25 16:30 Intake & Output 11/07/24 11/08/24 11/08/24 18:59 06:59 18:59 Intake Total 360 480 Output Total 1500 1000 Balance -1140 -520 Weight 104.7 kg 103.7 kg Intake: Oral 360 480 Output: Urine 1500 1000 Other: Voiding Method Indwelling Catheter Toilet Toilet Urinal Urinal # Voids 1 # Bowel Movements 0 1 ABP, PAP, CO, CI - Last Documented Arterial Blood Pressure 163/58 Pulmonary Artery Pressure 17/6 Cardiac Output 8.2 Cardiac Index 3.8 - Labs CBC & Chem 7: 11/08/24 05:47 11/08/24 05:47 Labs: Abnormal Lab Results - Last 24 Hours (Table) 11/07/24 11/07/24 11/08/24 Range/Units 11:51 22:44 05:47 WBC 15.2 H (3.8-10.6) k/uL RBC 3.47 L (4.30-5.90) m/uL Hgb 10.5 L (13.0-17.5) gm/dL Hct 33.4 L (39.0-53.0) % Neutrophils # 11.2 H (1.3-7.7) k/uL Monocytes # 1.4 H (0-1.0) k/uL Sodium (137-145) mmol/L Glucose (74-99) mg/dL POC Glucose (mg/dL) 129 H 119 H (70-110) mg/dL Total Protein (6.3-8.2) g/dL Albumin (3.5-5.0) g/dL 11/08/24 11/08/24 Range/Units 05:47 06:04 WBC (3.8-10.6) k/uL RBC (4.30-5.90) m/uL Hgb (13.0-17.5) gm/dL Hct (39.0-53.0) % Neutrophils # (1.3-7.7) k/uL Monocytes # (0-1.0) k/uL Sodium 134 L (137-145) mmol/L Glucose 118 H (74-99) mg/dL POC Glucose (mg/dL) 119 H (70-110) mg/dL Total Protein 5.9 L (6.3-8.2) g/dL Albumin 3.1 L (3.5-5.0) g/dL
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
--- NOTE | 2024-11-08 14:14 | P.PN ---
Subjective Progress Note Date: 11/08/24 Principal diagnosis: POD #4 aortic valve replacement with 27 mm Zamarripa Inspiris bovine pericardial valve, ligation left atrial appendage with 40 mm AtriCure clip, ESA by anesthesi a This is a 69-year-old male patient brought into the intensive care unit following cardiac surgery. Patient has severe calcified aortic stenosis and the patient underwent aortic valve replacement/bovine pericardial valve with ligation of the left atrial appendage. Patient was kept intubated on mechanical ventilator and the patient was brought into the intensive care unit. Currently, the patient is sedated on propofol which is running at 30 mcg/kg/min. The patient is on assist-control mode of mechanical ventilation. Initial blood. Noted that showed a pH of 7.31 and the patient's pCO2 is 55 and a pO2 of 134. Based on that, the patient was A rate of 2012 mechanical ventilator with a tidal volume of 500, FiO2 was up to 60% with a PEEP is currently at 8. Cardiac output is at 8.2 with an index of 3.8. Blood pressure is elevated and the patient is currently on nitroglycerin drip at 5 mcg/kg/min and Cleviprex drip at 6 mg an hour. The patient has mediastinal and left pleural chest tube. Output is minimal and the chest tube showing no evidence of any air leak. Chest x-ray was noted. The patient is holding his catheter in place. The patient has an orogastric and orotracheal tube both in place. There is some mild pulm vascular congestion. No other acute abnormalities. No evidence of any pneumothorax. Cardiac rhythm is sinus bradycardia and the patient is currently paced at a rate of 80. The white cell count of 22, hemoglobin 11.2 and a platelet count of 194. BUN is 40 with a creatinine of 0.8. Sodium levels at 138 and a potassium level is at 4.4. LFTs are normal. Patient was also started on insulin drip for blood sugar control. Producing adequate amount of urine output. Calm and comfortable. On 11/05/2024, the patient is being seen for a follow-up. The patient is postop day #1. The patient was weaned off the mechanical ventilator and the patient was extubated yesterday without any major difficulties. This morning, he is awake and alert and calm and comfortable and he is on oxygen 2 L/min nasal cannula. Using the incentive spirometer. The cardiac output is at 8.2 with an index of 3.8. CVP is at 8. PA pressures of 25/15. The patient is off nitroglycerin drip. The patient is off clevidipine drip. Cardiac rhythm is sinus and the patient has a backup pacing at rate of 50. No other significant issues or complaints for now. The white cell count of 20 with a hemoglobin of 11.1 and a platelet count of 188. Sodium levels at 135, the BUN is 14 with a creatinine of 0.7 and a potassium level is at 4.0. Chest x-ray findings are essentially stable consistent with postop changes. The patient has a mediastinal left pleural chest tube and he has cardiomegaly and mild pulm vessel congestion and atelectatic changes in the left lung base. On today's evaluation of 11/06/2024, the patient is on room air oxygen. The patient is calm and comfortable. Cardiac rhythm is sinus and the patient is currently on metoprolol 25 mg twice a day. No respiratory difficulties. The patient is post aortic valve replacement. Mediastinal chest tube is removed and the patient has a left pleural chest tube in place. Remains on aspirin. Remains on Lipitor. Remains on metoprolol 25 mg p.o. twice a day. [place] for pain control. Chest x-ray from today shows no significant abnormalities. The patient continues to have postcardiac surgery changes with some central pulmonary vascular congestion and cardiomegaly. The [place]ay catheter has been removed. The white cell count is 21, hemoglobin 10 and platelet count of 149. BUN is 14 with a creatinine of 0.6. The patient is ambulating. The patient is awake and alert. The patient is postop day #2. Patient was seen today on 11/07/2024, patient is now on room air, does not seem to be in any distress. Patient is achieving over 1500 cc on his incentive spirometry, his chest tubes were removed yesterday without any incident. Mehta catheter remains in place, patient is hemodynamically stable, not requiring any pressors or any inotropes. WBC count is elevated 19.5 hemoglobin 9.6 electrolyt es are normal renal profile is normal, chest x-ray showed pulmonary vascular congestion and postoperative changes Patient was seen today on 11/08/2024, doing great, on room air, achieving over 2000 cc on his incentive spirometry, his chest x-ray is reassuring, his labs were reviewed, patient is being considered for discharge home today. Objective - Vital Signs Vital signs: Vital Signs Temp 98.3 F 11/08/24 08:00 Pulse 78 11/08/24 08:00 Resp 20 11/08/24 08:00 BP 147/81 11/08/24 08:00 Pulse Ox 95 11/08/24 04:00 FiO2 60 11/04/24 16:30 Intake & Output 11/07/24 11/08/24 11/08/24 18:59 06:59 18:59 Intake Total 360 480 Output Total 1500 1000 Balance -1140 -520 Weight 104.7 kg 103.7 kg Intake: Oral 360 480 Output: Urine 1500 1000 Other: Voiding Method Indwelling Catheter Toilet Toilet Urinal Urinal # Voids 1 # Bowel Movements 0 1 ABP, PAP, CO, CI - Last Documented Arterial Blood Pressure 163/58 Pulmonary Artery Pressure 17/6 Cardiac Output 8.2 Cardiac Index 3.8 - Exam General: Revealed 69-year-old white male in no distress on room air. RESPIRATORY: Diminished breath sound bilaterally no rhonchi no wheezes CARDIOVASCULAR: Distant S1-S2, no S3 gallop, no murmur GASTROINTESTINAL: Soft nontender no megaly no rebound or guarding INTEGUMENTARY: Skin is warm and dry no rashes NEUROLOGIC: Alert oriented x 3 no gross focal deficit MUSKULOSKELETAL: No deformities and no limitation range of motion PSYCHIATRIC: Normal mood affect and no mental status examination INVASIVE LINES AND TUBES: A/V epicardial pacemaker wires present, grounded. - Labs CBC & Chem 7: 11/08/24 05:47 11/08/24 05:47 Labs: Abnormal Lab Results - Last 24 Hours (Table) 11/07/24 11/08/24 11/08/24 Range/Units 22:44 05:47 05:47 WBC 15.2 H (3.8-10.6) k/uL RBC 3.47 L (4.30-5.90) m/uL Hgb 10.5 L (13.0-17.5) gm/dL Hct 33.4 L (39.0-53.0) % Neutrophils # 11.2 H (1.3-7.7) k/uL Monocytes # 1.4 H (0-1.0) k/uL Sodium 134 L (137-145) mmol/L Glucose 118 H (74-99) mg/dL POC Glucose (mg/dL) 119 H (70-110) mg/dL Total Protein 5.9 L (6.3-8.2) g/dL Albumin 3.1 L (3.5-5.0) g/dL 11/08/24 Range/Units 06:04 WBC (3.8-10.6) k/uL RBC (4.30-5.90) m/uL Hgb (13.0-17.5) gm/dL Hct (39.0-53.0) % Neutrophils # (1.3-7.7) k/uL Monocytes # (0-1.0) k/uL Sodium (137-145) mmol/L Glucose (74-99) mg/dL POC Glucose (mg/dL) 119 H (70-110) mg/dL Total Protein (6.3-8.2) g/dL Albumin (3.5-5.0) g/dL Assessment and Plan Assessment: Impression: Calcific tricuspid aortic valve stenosis with partial fusion of right and left coronary cusps, status post bioprosthetic aortic valve replacement postoperative day #4 Postoperative acute blood loss anemia, expected given hemodilution and cardiopulmonary bypass pump Leukocytosis, likely reactive Ex-smoker Obstructive sleep apnea with home CPAP use History of pulmonary embolism in 2006 Chronic back pain on chronic narcotics outpatient Recommendation: Agree with discharge planning , Follow-up on outpatient basis Patient to continue incentive spirometry at home Time with Patient: Less than 30
--- NOTE | 2024-11-08 15:06 | P.PN ---
Subjective Progress Note Date: 11/08/24 The patient is a 69-year-old male who underwent elective bioprosthetic aortic valve replacement. Today is postop day 5. According to patient he is pending discharge later today. Patient interviewed and examined resting comfortably on the side of the bed. He states he has been up ambulating around his room without chest pain or difficulty breathing. No dizziness or lightheadedness upon standing. He is tolerating his medication regimen. GENERAL: Well-appearing, well-nourished and in no acute distress. NECK: Supple without JVD or thyromegaly. LUNGS: Breath sounds clear to auscultation bilaterally. Respiration equal and unlabored. No wheezes, rales or rhonchi. HEART: Regular rate and rhythm without murmurs, rubs or gallops. S1 and S2 heard. EXTREMITIES: Normal range of motion, no edema. No clubbing or cyanosis. Peripheral pulses intact and strong. TELEMETRY: Sinus rhythm overnight LABS: WBC 15.2, hemoglobin 10.5, hematocrit 33.4, platelet 215, sodium 134, potassium 4.0, BUN 14, creatinine 0.68, AST 24, ALT 14 IMPRESSION: Severe aortic stenosis Status post aortic valve replacement Sleep apnea History of PE PLAN: Continue supportive treatment Patient to be discharged later today I am dictating on behalf of Dr Mj Adkins's history/physical and assessment/plan. Objective - Vital Signs Vital signs: Vital Signs Temp 98.3 F 11/08/24 08:00 Pulse 78 11/08/24 08:00 Resp 20 11/08/24 08:00 BP 147/81 11/08/24 08:00 Pulse Ox 95 11/08/24 04:00 FiO2 60 11/04/24 16:30 Intake & Output 11/07/24 11/08/24 11/08/24 18:59 06:59 18:59 Intake Total 360 480 Output Total 1500 1000 Balance -1140 -520 Weight 104.7 kg 103.7 kg Intake: Oral 360 480 Output: Urine 1500 1000 Other: Voiding Method Indwelling Catheter Toilet Toilet Urinal Urinal # Voids 1 # Bowel Movements 0 1 ABP, PAP, CO, CI - Last Documented Arterial Blood Pressure 163/58 Pulmonary Artery Pressure 17/6 Cardiac Output 8.2 Cardiac Index 3.8 - Labs CBC & Chem 7: 11/08/24 05:47 11/08/24 05:47 Labs: Abnormal Lab Results - Last 24 Hours (Table) 11/07/24 11/08/24 11/08/24 Range/Units 22:44 05:47 05:47 WBC 15.2 H (3.8-10.6) k/uL RBC 3.47 L (4.30-5.90) m/uL Hgb 10.5 L (13.0-17.5) gm/dL Hct 33.4 L (39.0-53.0) % Neutrophils # 11.2 H (1.3-7.7) k/uL Monocytes # 1.4 H (0-1.0) k/uL Sodium 134 L (137-145) mmol/L Glucose 118 H (74-99) mg/dL POC Glucose (mg/dL) 119 H (70-110) mg/dL Total Protein 5.9 L (6.3-8.2) g/dL Albumin 3.1 L (3.5-5.0) g/dL 11/08/24 Range/Units 06:04 WBC (3.8-10.6) k/uL RBC (4.30-5.90) m/uL Hgb (13.0-17.5) gm/dL Hct (39.0-53.0) % Neutrophils # (1.3-7.7) k/uL Monocytes # (0-1.0) k/uL Sodium (137-145) mmol/L Glucose (74-99) mg/dL POC Glucose (mg/dL) 119 H (70-110) mg/dL Total Protein (6.3-8.2) g/dL Albumin (3.5-5.0) g/dL
== END 2024-11-08 13:04 | disposition home health service (06) | DRG 220 ==
LOC: 2ORMAIN 05:34 → 2SICU 11:55
PROVIDERS: ADMIT Thoracic Surgery (Cardiothoracic Vascular Surgery); ATTEND Thoracic Surgery (Cardiothoracic Vascular Surgery)
PROC: 0JH63VZ Insertion of Infusion Pump into Chest Subcutaneous Tissue and Fascia, Percutaneous Approach (ICD-10-PCS; 2024-11-04)
PROC: 02L70CK Occlusion of Left Atrial Appendage with Extraluminal Device, Open Approach (ICD-10-PCS; 2024-11-04)
PROC: 5A1221Z Performance of Cardiac Output, Continuous (ICD-10-PCS; 2024-11-04)
PROC: B246ZZ4 Ultrasonography of Right and Left Heart, Transesophageal (ICD-10-PCS; 2024-11-04)
PROC: 02HV33Z Insertion of Infusion Device into Superior Vena Cava, Percutaneous Approach (ICD-10-PCS; 2024-11-04)
PROC: 03HY32Z Insertion of Monitoring Device into Upper Artery, Percutaneous Approach (ICD-10-PCS; 2024-11-04)
PROC: 4A133B1 Monitoring of Arterial Pressure, Peripheral, Percutaneous Approach (ICD-10-PCS; 2024-11-04)
PROC: 4A133J1 Monitoring of Arterial Pulse, Peripheral, Percutaneous Approach (ICD-10-PCS; 2024-11-04)
PROC: 02RF08Z Replacement of Aortic Valve with Zooplastic Tissue, Open Approach (ICD-10-PCS; principal; 2024-11-04 08:00)
DX: I35.0 Nonrheumatic aortic (valve) stenosis (principal); Z00.6 Encounter for examination for normal comparison and control in clinical research program; D62 Acute posthemorrhagic anemia; Q23.81 Bicuspid aortic valve; I10 Essential (primary) hypertension; J45.909 Unspecified asthma, uncomplicated; D72.829 Elevated white blood cell count, unspecified; E78.5 Hyperlipidemia, unspecified; G47.33 Obstructive sleep apnea (adult) (pediatric); G89.29 Other chronic pain; H91.90 Unspecified hearing loss, unspecified ear; R73.03 Prediabetes; Z79.02 Long term (current) use of antithrombotics/antiplatelets; Z79.82 Long term (current) use of aspirin; Z79.891 Long term (current) use of opiate analgesic; Z79.899 Other long term (current) drug therapy; Z86.16 Personal history of COVID-19; Z86.711 Personal history of pulmonary embolism; Z87.01 Personal history of pneumonia (recurrent); Z90.81 Acquired absence of spleen; Z87.891 Personal history of nicotine dependence; Z87.19 Personal history of other diseases of the digestive system; Z98.1 Arthrodesis status; K57.90 Diverticulosis of intestine, part unspecified, without perforation or abscess without bleeding
CPT/HCPCS: 71045; 71046; 80053; 82330; 82805; 83735; 85025; 85610; 85730; 86850; 86891; 86900; 86901; 86920; 88305; 88311; 94002; 94640

== ENCOUNTER → 2024-12-08 | Outpatient (CLI) | payer OTHER ==
[2024-12-08 09:35] VITALS: BP 147/74; PULSE 58; RESP 16; TEMP 97.1
--- NOTE | 2024-12-08 15:11 | P.PAINPG ---
PQRS Measure Charge Sheet Comment: HISTORY OF PRESENT ILLNESS: A 69 yr old male from the [facility] presents today w severe and chronic LBP since secondary to L5-S1 fusion, L3-L4 radiculopathy for medication refills Pt states pain level is provoked at 9 /10 in intensity, intermittent, localized in the lumbar spine, predominantly axial, pinching in character w occasional shooting pain towards the buttocks, hips and LEs. Pain is provoked by any movements. Pain is alleviated by physician guided home stretches daily since , medications, repositioning and rest . Interventional procedures include L5-S1 fusion, L3-L4 radiculopathy Medications include Guion 7.5/325mg #120, Ibu REVIEW OF ORGAN SYSTEMS: CONSTITUTIONAL: No fevers or chills. No recent weight loss. NEUROLOGICAL: + numbness and tingling along the distal extremities. No seizure disorders or headaches. MUSCULOSKELETAL: + pain PSYCHIATRIC: Denies current depression or suicidal thoughts. Physical Examinations : Constitutional : Cooperative , not in acute distress . Neurologic : Cranial nerve II to XII intact. No focal neurological deficits. Psychiatric : alert & oriented x 3. Matching mood & appropriate affect. Judgment & insight intact. Musculoskeletal : Cervical Spine Motor strength in the deltoid and biceps: Normal right side. Normal Left side Motor strength biceps and the wrist extensors: Normal right side . Normal left side Motor strength in the triceps muscle: Normal right side. Normal left side Deep tendon reflexes: Normal at the biceps. Normal at Brachioradialis. Normal at triceps Vertebral body tenderness to deep palpation over Cervical facet loading test: positive bilaterally Spurling test: positive bilaterally Neck distraction test: positive bilaterally Susanne sign: positive bilaterally Lumbar spine Motor strength lower extremities ,thigh and legs 5/5 Right side , 5/5 Left side Deep tendon reflexes : Normal Knee Jerk. Normal Ankle Jerk Vertebral body tenderness over Wilder Test positive BL L3-L4 Lumbar facet Loading Test: positive Right / positive Left Range of motion of the lumbar spine F lexion 30 degrees, extension 10 degrees Straight Leg Raise test: Left/ Right positive at degrees Racquel test: positive right / positive left. Severe tenderness over the Sacroiliac joint on the Right / Left sides Gaenslen test: positive bilaterally Seated flexion test: positive bilaterally. Sacral spine : Severe tenderness over the Sacroiliac joint: right side / left side Range of motion: Flexion of the lumbar spine <60 degrees Range of motion: Extension of the lumbar spine <20 degrees Gaenslen's Test positive Racquel test: positive right side / left side Thigh Thrust Test Sacral Thrust Test Imaging: MRI non contrast lumbar spine from 07/02/23 reviewed Assessment/ Plan : L5-S1 fusion, L3-L4 radiculpathy Recommendation of medication management. UDS collected 12/08/24. Opiate/narcotic agreement signed 10/13/2024. Guion 7.5/325 #120 with 1 refill. Risks, side effects, adverse reactions, safe storage discussed. Will consider MARIBETH L3-L4 after heart surgery. All questions answered. I have spent greater than 30 minutes on patient care today. Dr Koch was available by phone for the evaluation of this patient. The time was used to review the medical records including relevant urine studies and Prescription history (MAPs), review of the available imaging, evaluation and examination of the patient, coordination of care with the medical staff and if applicable referring physicians, as well as creation of the medical record PQRS Narrative: Smoking Status Former smoker Hx Alcohol Use (MH) No Home Medications: Ambulatory Orders Aspirin 81 mg PO DAILY #30 tab 10/24/24 Atorvastatin [Lipitor] 40 mg PO DAILY #30 tablet 10/24/24 Acetaminophen Tab [Tylenol] 650 mg PO Q4HR PRN tab 11/08/24 Clopidogrel [Plavix] 75 mg PO DAILY #30 tab 11/08/24 Losartan [Cozaar] 25 mg PO DAILY #30 tab 11/08/24 Metoprolol Tartrate [Lopressor] 25 mg PO BID #60 tab 11/08/24 Pantoprazole [Protonix] 40 mg PO AC-BRKFST #30 tab 11/08/24 Sennosides-Docusate Sodium [Senokot-S] 2 each PO HS PRN tab 11/08/24 HYDROcodone/APAP 7.5-325MG [Guion 7.5-325] 1 tab PO QID PRN 30 Days #120 tab 12/08/24 HYDROcodone/APAP 7.5-325MG [Guion 7.5-325] 1 tab PO QID PRN 30 Days #120 tab 12/08/24 Controlled Substance Measures - Controlled Substance Measures Is patient prescribed a controlled substance at discharge?: No
== END ==
LOC: PNWHC3 07:34
PROVIDERS: ATTEND Anesthesiology
DX: M54.16 Radiculopathy, lumbar region (principal); M43.27 Fusion of spine, lumbosacral region; Z88.6 Allergy status to analgesic agent; Z87.891 Personal history of nicotine dependence
CPT/HCPCS: 80307; 99212

== ENCOUNTER → 2025-01-26 | Outpatient (CLI) | payer OTHER ==
[2025-01-26 08:03] VITALS: BP 128/69; PULSE 43; RESP 17
--- NOTE | 2025-01-30 14:21 | P.PAINPG ---
PQRS Measure Charge Sheet Comment: HISTORY OF PRESENT ILLNESS: A 69 yr old male from the [facility] presents today w severe and chronic LBP since secondary to L5-S1 fusion, L3-L4 radiculopathy for medication refills Pt states pain level is provoked at 9 /10 in intensity, intermittent, localized in the lumbar spine, predominantly axial, pinching in character w occasional shooting pain towards the buttocks, hips and LEs. Pain is provoked by any movements. Pain is alleviated by physician guided home stretches daily since , medications, repositioning and rest . Pt underwent heart surgery a few months ago but would like to wait until he considers an MARIBETH. Interventional procedures include L5-S1 fusion, L3-L4 radiculopathy Medications include [place] 10/325mg #90, Ibu REVIEW OF ORGAN SYSTEMS: CONSTITUTIONAL: No fevers or chills. No recent weight loss. NEUROLOGICAL: + numbness and tingling along the distal extremities. No seizure disorders or headaches. MUSCULOSKELETAL: + pain PSYCHIATRIC: Denies current depression or suicidal thoughts. Physical Examinations : Constitutional : Cooperative , not in acute distress . Neurologic : Cranial nerve II to XII intact. No focal neurological deficits. Psychiatric : alert & oriented x 3. Matching mood & appropriate affect. Judgment & insight intact. Musculoskeletal : Cervical Spine Motor strength in the deltoid and biceps: Normal right side. Normal Left side Motor strength biceps and the wrist extensors: Normal right side . Normal left side Motor strength in the triceps muscle: Normal right side. Normal left side Deep tendon reflexes: Normal at the biceps. Normal at Brachioradialis. Normal at triceps Vertebral body tenderness to deep palpation over Cervical facet loading test: positive bilaterally Spurling test: positive bilaterally Neck distraction test: positive bilaterally Susanne sign: positive bilaterally Lumbar spine Motor strength lower extremities ,thigh and legs 5/5 Right side , 5/5 Left side Deep tendon reflexes : Normal Knee Jerk. Normal Ankle Jerk Vertebral body tenderness over Wilder Test positive BL L3-L4 Lumbar facet Loading Test: positive Right / positive Left Range of motion of the lumbar spine Flexion 30 degrees, extension 10 degrees Straight Leg Raise test: Left/ Right positive at degrees Racquel test: positive right / positive left. Severe tenderness over the Sacroiliac joint on the Right / Left sides Gaenslen test: positive bilaterally Seated flexion test: positive bilatera lly. Sacral spine : Severe tenderness over the Sacroiliac joint: right side / left side Range of motion: Flexion of the lumbar spine <60 degrees Range of motion: Extension of the lumbar spine <20 degrees Gaenslen's Test positive Racquel test: positive right side / left side Thigh Thrust Test Sacral Thrust Test Imaging: MRI non contrast lumbar spine from 07/02/23 reviewed Assessment/ Plan : L5-S1 fusion, L3-L4 radiculpathy Recommendation of medication management. UDS from 12/08/24 reviewed and consistent. Opiate/narcotic agreement signed 01/26/2025. [place] 10/325 #90 with 1 refill. Risks, side effects, adverse reactions, safe storage discussed. Will consider MARIBETH L3-L4 after heart surgery. All questions answered. I have spent greater than 30 minutes on patient care today. Dr Koch was available by phone for the evaluation of this patient. The time was used to revi ew the medical records including relevant urine studies and Prescription history (MAPs), review of the available imaging, evaluation and examination of the patient, coordination of care with the medical staff and if applicable referring physicians, as well as creation of the medical record - Pain Location Lower Back Non-Pharmacological Interventions: Heat Pharmacological Interventions: Medication PQRS Narrative: Smoking Status Former smoker Hx Alcohol Use (MH) No Home Medications: Ambulatory Orders Aspirin 81 mg PO DAILY #30 tab 10/24/24 Atorvastatin [Lipitor] 40 mg PO DAILY #30 tablet 10/24/24 Acetaminophen Tab [Tylenol] 650 mg PO Q4HR PRN tab 11/08/24 Clopidogrel [Plavix] 75 mg PO DAILY #30 tab 11/08/24 Losartan [Cozaar] 25 mg PO DAILY #30 tab 11/08/24 Metoprolol Tartrate [Lopressor] 25 mg PO BID #60 tab 11/08/24 Pantoprazole [Protonix] 40 mg PO AC-BRKFST #30 tab 11/08/24 Sennosides-Docusate Sodium [Senokot-S] 2 each PO HS PRN tab 11/08/24 HYDROcodone/APAP 7.5-325MG [[place] 7.5-325] 1 tab PO QID PRN 30 Days #120 tab 12/08/24 HYDROcodone/APAP 7.5-325MG [[place] 7.5-325] 1 tab PO QID PRN 30 Days #120 tab 12/08/24 Controlled Substance Measures - Controlled Substance Measures Is patient prescribed a controlled substance at discharge?: Yes When asked, does pt state using other controlled substances?: No If prescribed controlled substance>3 days was MAPS reviewed?: Yes
== END ==
LOC: PNWHC3 07:40
PROVIDERS: ATTEND Specialist
DX: M43.27 Fusion of spine, lumbosacral region (principal); M54.16 Radiculopathy, lumbar region; Z87.891 Personal history of nicotine dependence; Z91.041 Radiographic dye allergy status
CPT/HCPCS: 99212